=== PATIENT | female | born 1940 | race Caucasian/White ===

== ENCOUNTER 2019-04-19 11:04 | Outpatient (CLI) | payer MEDICARE, SELFPAY ==
[2019-04-19 13:02] LABS: Anion Gap 14.6 mmol/L (7-16); Blood Urea Nitrogen 28 mg/dL (7-18); Calcium 8.5 mg/dL (8.5-10.1); Carbon Dioxide 27 mmol/L (21-32); Chloride 103 mmol/L (98-108); Estimated Glomerular Filt Rate > 60; Glucose 86 mg/dL (70-99); Osmolality Calculated 296 mOsm/kg (285-295); Potassium 3.6 mmol/L (3.5-5.1); Sodium 141 mmol/L (136-145)
== END 2019-04-19 11:05 | disposition home or self-care (01) ==
PROVIDERS: PCP Nurse Practitioner Family
DX: Z95.2 Presence of prosthetic heart valve (principal)
CPT/HCPCS: 36415; 80048

== ENCOUNTER 2019-07-12 10:18 | Outpatient (CLI) | payer MEDICARE, SELFPAY ==
[2019-07-12 10:40] LABS: Basophils Absolute Auto 0.02 K/mm3 (0.00-0.10); Basophils Percent Auto 0.3 % (0.0-1.0); Eosinophils Absolute Auto 0.04 K/mm3 (0.02-0.50); Eosinophils Percent Auto 0.6 % (1.0-6.0); Hematocrit 37.5 % (35.0-42.0); Hemoglobin 12.3 g/dL (11.7-13.8); Immature Granulocyte Absolute 0.03 K/mm3 (0.00-0.00); Immature Granulocyte Percent A 0.5 % (0.0-0.0); Immature Platelet Fraction Pct 2.4 % (1.0-7.0); Lymphocytes Absolute Auto 0.64 K/mm3 (1.10-4.50); Lymphocytes Percent Auto 9.9 % (18.0-42.0); Mean Corpuscular HGB Conc 32.8 g/dL (32.0-36.0); Mean Corpuscular Hemoglobin 29.9 pg (27.0-31.0); Mean Platelet Volume 10.1 fl (9.2-11.8); Monocytes Absolute Auto 0.58 K/mm3 (0.10-0.90); Neutrophils Absolute Auto 5.2 K/mm3 (1.7-7.2); Neutrophils Percent Auto 79.7 % (50.0-70.0); Platelet Count Result 149 K/mm3 (150-420); Red Blood Count 4.12 M/mm3 (4.20-5.40); Red Cell Distribution Width 15.2 % (11.6-14.4); White Blood Count 6.5 K/mm3 (4.8-10.8)
[2019-07-12 13:09] LABS: Alanine Aminotransferase 20 U/L (14-59); Albumin Level 3.7 g/dL (3.4-5.0); Alkaline Phosphatase 100 U/L (46-116); Aspartate Amino Transferase 21 U/L (15-37); Bilirubin,Total 0.9 mg/dL (0.00-1.00); Blood Urea Nitrogen 24 mg/dL (7-18); Calcium 8.9 mg/dL (8.5-10.1); Carbon Dioxide 26 mmol/L (21-32); Chloride 101 mmol/L (98-108); Cholesterol 130 mg/dL (0-200); Estimated Glomerular Filt Rate > 60; Free T4 Free Thyroxine 1.09 ng/dL (0.76-1.46); Glucose 115 mg/dL (70-99); HDL Direct 34 mg/dL (40-60); LDL Cholesterol Calculated 84 mg/dL (<130); Magnesium 1.8 mg/dL (1.8-2.4); Osmolality Calculated 295 mOsm/kg (285-295); Sodium 140 mmol/L (136-145); Total Protein 7.1 g/dL (6.4-8.2); Triglycerides 60 mg/dL (0-150); Vitamin B12 388 pg/mL (193-986)
== END 2019-07-12 10:19 | disposition home or self-care (01) ==
PROVIDERS: PCP Nurse Practitioner Family; Visit Provider Family Medicine
DX: E78.2 Mixed hyperlipidemia (principal); I10 Essential (primary) hypertension; R53.83 Other fatigue; E87.6 Hypokalemia
CPT/HCPCS: 36415; 80053; 80061; 82607; 83735; 84439; 84443; 85025; 85055

== ENCOUNTER 2019-09-25 10:02 | Outpatient (CLI) | payer MEDICARE, SELFPAY ==
[2019-09-25 10:14] LABS: Basophils Absolute Auto 0.02 K/mm3 (0.00-0.10); Basophils Percent Auto 0.2 % (0.0-1.0); Eosinophils Absolute Auto 0.06 K/mm3 (0.02-0.50); Eosinophils Percent Auto 0.7 % (1.0-6.0); Hematocrit 37.8 % (35.0-42.0); Hemoglobin 12.5 g/dL (11.7-13.8); Immature Granulocyte Absolute 0.03 K/mm3 (0.00-0.00); Immature Granulocyte Percent A 0.4 % (0.0-0.0); Lymphocytes Absolute Auto 0.85 K/mm3 (1.10-4.50); Mean Corpuscular HGB Conc 33.1 g/dL (32.0-36.0); Mean Corpuscular Hemoglobin 30.7 pg (27.0-31.0); Mean Corpuscular Volume 92.9 fL (78.0-102.0); Monocytes Absolute Auto 0.75 K/mm3 (0.10-0.90); Monocytes Percent Auto 8.8 % (2.0-11.0); Neutrophils Absolute Auto 6.8 K/mm3 (1.7-7.2); Neutrophils Percent Auto 79.9 % (50.0-70.0); Platelet Count Result 163 K/mm3 (150-420); Red Blood Count 4.07 M/mm3 (4.20-5.40); Red Cell Distribution Width 14.8 % (11.6-14.4); White Blood Count 8.5 K/mm3 (4.8-10.8)
[2019-09-25 11:00] LABS: Alanine Aminotransferase 18 U/L (14-59); Albumin Level 3.6 g/dL (3.4-5.0); Alkaline Phosphatase 103 U/L (46-116); Anion Gap 9 mmol/L (8-16); Aspartate Amino Transferase 18 U/L (15-37); Bilirubin,Total 1.2 mg/dL (0.00-1.00); Blood Urea Nitrogen 20 mg/dL (7-18); Calcium 8.6 mg/dL (8.5-10.1); Carbon Dioxide 28 mmol/L (21-32); Chloride 100 mmol/L (98-108); Estimated Glomerular Filt Rate > 60; Glucose 135 mg/dL (70-99); Osmolality Calculated 288 mOsm/kg (285-295); Potassium 4.1 mmol/L (3.5-5.1); Sodium 137 mmol/L (136-145); Total Protein 7.2 g/dL (6.4-8.2)
[2019-09-28 06:52] LABS: Carcinoembryonic Antigen 2.5 ng/mL (0.0-2.4)
== END 2019-09-25 10:03 | disposition home or self-care (01) ==
LOC: CHSLAB 10:04
PROVIDERS: PCP Nurse Practitioner Family; Visit Provider Internal Medicine Hematology & Oncology
DX: C20 Malignant neoplasm of rectum (principal)
CPT/HCPCS: 36415; 80053; 82378; 85025

== ENCOUNTER 2019-11-30 11:48 | Emergency (ER) | payer MEDICARE, SELFPAY ==
--- NOTE | ~2019-11-30 | CT_ITS ---
EXAMINATION: CT brain wo con DATE: 11/30/2019 12:41 INDICATION: Head injury. TECHNIQUE: Computed tomography (CT) of the head was performed without intravenous contrast. The mA wa s adjusted according to patient size. Iterative reconstruction technique was employed. The dose-lengt h product was 605.33 mGy-cm. COMPARISON: None FINDINGS: There are scattered areas of low attenuation in the cerebral white matter. There is no intr acranial hemorrhage, acute infarction, or abnormal intracranial mass lesion. The ventricles are tila l in size. There are likely changes of left ocular lens replacement surgery. There is mucosal thicken ing in sphenoid sinus. The mastoid air cells are normal. There is an acute hematoma in the left poste rior superior scalp. There are multiple poorly calcified masses in the scalp, likely benign. IMPRESSION: 1. Moderate nonspecific cerebral white matter disease, which likely represents chronic small vessel i schemic disease. Reviewed, dictated and finalized at location A. IMPRESSION: 1. Moderate nonspecific cerebral white matter disease, which likely represents chronic small vessel ischemic disease.
--- NOTE | 2019-11-30 11:52 | ED.HEATRA ---
HPI - Head Injury General Chief complaint: Fall Stated complaint: Ambulance Time Seen by Provider: 11/30/19 11:54 Related Data Home Medications Medication Instructions Recorded Confirmed alprazolam 0.5 mg PO HS 11/30/19 11/30/19 aspirin [Adult Low Dose Aspirin] 81 mg PO DAILY 11/30/19 11/30/19 furosemide 40 mg PO DAILY 11/30/19 11/30/19 losartan 12.5 mg PO DAILY 11/30/19 11/30/19 metoprolol succinate 50 mg PO BID 11/30/19 11/30/19 potassium chloride 10 meq PO BID 11/30/19 11/30/19 rivaroxaban [Xarelto] 20 mg PO HS 11/30/19 11/30/19 sertraline 50 mg PO DAILY 11/30/19 11/30/19 simvastatin 40 mg PO HS 11/30/19 11/30/19 Allergies Allergy/AdvReac Type Severity Reaction Status Date / Time Vitamin K Allergy Intermediate Unknown Uncoded 11/30/19 12:28 [facility] Past Medical History Medical History Anxiety Arthritis Atrial fibrillation Carotid artery stenosis Colon cancer GERD (gastroesophageal reflux disease) HTN (hypertension) Hyperlipidemia Rectal cancer Surgical History Surgical History (Updated 11/30/19 @ 12:02 by Rah Machado MD) H/O resection of rectum History of cataract surgery History of partial colectomy S/P carotid endarterectomy Social History Social History Smoking status: Former smoker Alcohol intake: current Drinks per week: 2 Substance use: never Living arrangements: alone Gender identity (if verbalized by the patient): Male Exam Const: General: no acute distress and alert Nutritional Appearance: obese Orientation/consciousness: patient oriented x3 Limitations: no limitations HENMT: Head: normal to inspection Ears: external ears normal, TM's normal bilaterally and EAC's normal General nose exam: Normal nares present Face and sinus: normal facial exam Mouth: Yes moist mucous membranes Throat: posterior oropharynx normal Other: 4 x 6 cm hematoma on the occiput /crown more left than right. Minimally tender. There is no crepitus in the skin overlying the hematoma is intact. No bony tenderness or step-off/depression is detected with palpation. Eyes: Conjunctivae: conjunctivae normal Pupils: Equal, round and reactive pupils present EOM: EOMs intact bilaterally Neck: Neck: normal visual inspection and no lymphadenopathy Other: No tenderness. Normal range of motion. Resp: Effort & Inspection: normal respiratory effort, not labored and no retractions Auscultation: clear to auscultation bilaterally, no rales, no rhonchi and no wheezes Cardio: Rate: regular rate Rhythm: abnormal rhythm irregularly irregular Heart sounds: no murmurs GI: GI Palp: Yes Soft to palpation and No Tenderness to palpation present (GI) Skin: General skin exam: normal color, no jaundice and no pallor Rashes: no rashes Neuro: General: patient oriented x3, moves all extremities and no focal motor deficits Cranial nerves: Yes CN's II-XII intact bilaterally Speech: normal speech Gait exam (Neuro): Normal gait present Extrem: General: normal to inspection and no clubbing, cyanosis or edema Psych: Appearance: grossly normal and well kempt Mental Status: mental status grossly normal Affect: Anxious affect present Attitude: cooperative Thought content: Yes Normal thought content present Discharge Plan Discharge Clinical Impression: Closed head injury without loss of consciousness Qualifiers: Encounter type: initial encounter Qualified Code(s): S09.90XA - Unspecified injury of head, initial encounter Hematoma of scalp Qualifiers: Encounter type: initial encounter Qualified Code(s): S00.03XA - Contusion of scalp, initial encounter Patient Disposition: Home, Self-Care Condition: Stable Instructions: Head Injury (ED), Hematoma (ED) Additional Instructions: Use your cane or walker to help get around. If you have severe headache, vomiting, stroke-like symptoms, or new
[2019-11-30 12:09] VITALS: BP 146/76; PULSE 90; RESP 20; TEMP 36.9; O2SAT 95
[2019-11-30 13:42] VITALS: BP 140/79; PULSE 87; RESP 20; O2SAT 99
== END 2019-11-30 13:59 | disposition home or self-care (01) ==
PROVIDERS: Emergency Provider Emergency Medicine; PCP Nurse Practitioner Family
DX: S09.90XA Unspecified injury of head, initial encounter (principal); W19.XXXA Unspecified fall, initial encounter
CPT/HCPCS: 70450; 99282; 99284

== ENCOUNTER 2020-01-16 11:24 | Outpatient (CLI) | payer MEDICARE, SELFPAY ==
[2020-01-16 14:05] LABS: Alanine Aminotransferase 18 U/L (14-59); Alkaline Phosphatase 104 U/L (46-116); Anion Gap 11 mmol/L (8-16); Aspartate Amino Transferase 14 U/L (15-37); Bilirubin,Total 1.1 mg/dL (0.00-1.00); Blood Urea Nitrogen 23 mg/dL (7-18); Calcium 8.9 mg/dL (8.5-10.1); Carbon Dioxide 28 mmol/L (21-32); Chloride 102 mmol/L (98-108); Cholesterol 132 mg/dL (0-200); Estimated Glomerular Filt Rate > 60; Glucose 121 mg/dL (70-99); HDL Direct 34 mg/dL (40-60); LDL Cholesterol Calculated 82 mg/dL (<130); Osmolality Calculated 296 mOsm/kg (285-295); Potassium 4.2 mmol/L (3.5-5.1); Sodium 141 mmol/L (136-145); Total Protein 7.5 g/dL (6.4-8.2); Triglycerides 80 mg/dL (0-150); Vitamin B12 495 pg/mL (193-986)
[2020-01-19 11:28] LABS: Vitamin D 25 Hydroxy 11 ng/mL (30-100)
== END 2020-01-16 11:25 | disposition home or self-care (01) ==
PROVIDERS: PCP Nurse Practitioner Family; Visit Provider Family Medicine
DX: E78.5 Hyperlipidemia, unspecified (principal); I10 Essential (primary) hypertension; F32.0 Major depressive disorder, single episode, mild; E87.6 Hypokalemia; Z79.899 Other long term (current) drug therapy; I48.21 Permanent atrial fibrillation
CPT/HCPCS: 36415; 80053; 80061; 82306; 82607

== ENCOUNTER 2020-03-22 07:59 | Emergency (ER) | payer MEDICARE, SELFPAY ==
[2020-03-22 08:22] VITALS: BP 125/81; PULSE 85; RESP 18; TEMP 36.3; O2SAT 95
--- NOTE | 2020-03-22 08:53 | ED.GIBLEED ---
HPI - GI Bleed General Chief complaint: GI Bleed Stated complaint: BLEEDING COLOSCOPY BAG Time Seen by Provider: 03/22/20 08:30 Source: patient Mode of arrival: ambulatory Limitations: no limitations History of Present Illness HPI Narrative: This nice lady has a colostomy in the lower left abdomen. She says she had about 11 inches of colon removed due to colon cancer. Today she notice some minimal dark old blood coming from the stoma. This alarmed her so she came in. The stoma now has some very minimal old blood coming from it. She noticed the bleeding just before presentation to the ER. She reports a history of diverticulosis and lower GI bleeding. She reports taking Xarelto for an aortic valve replacement. Severity: mild Relieving factors: none Exacerbating factors: none Context: history of GI bleed Associated symptoms: denies other symptoms Treatments Prior to Arrival: none Related Data Home Medications Medication Instructions Recorded Confirmed alprazolam 0.5 mg PO HS 11/30/19 03/22/20 aspirin [Adult Low Dose Aspirin] 81 mg PO DAILY 11/30/19 03/22/20 furosemide 40 mg PO DAILY 11/30/19 03/22/20 losartan 12.5 mg PO DAILY 11/30/19 03/22/20 metoprolol succinate 50 mg PO BID 11/30/19 03/22/20 potassium chloride 20 meq PO BID 11/30/19 03/22/20 rivaroxaban [Xarelto] 20 mg PO HS 11/30/19 03/22/20 sertraline 50 mg PO DAILY 11/30/19 03/22/20 simvastatin 40 mg PO HS 11/30/19 03/22/20 spironolactone 25 mg PO DAILY 03/22/20 03/22/20 Allergies Allergy/AdvReac Type Severity Reaction Status Date / Time Vitamin K Allergy Intermediate Unknown Uncoded 11/30/19 12:28 Review of Systems Constitutional: Constitutional: Reports no additional constitutional complaints Eyes: Eyes: Reports no additional eye complaints ENT: Reports system reviewed and no additional complaints, except as documented Cardiovascular: Cardiovascular: Reports no additional cardiovascular complaints Respiratory: Respiratory: Reports no additional respiratory complaints Genitourinary: Genitourinary: Reports no additional female genitourinary complaints Musculoskeletal: Musculoskeletal: Reports no additional musculoskeletal complaints Integumentary/Breasts: Skin/Breast: Reports system reviewed and no additional complaints, except as docu Neurologic: Reports system reviewed and no additional complaints, except as documented Psychiatric: Psychiatric: Reports no additional psychiatric complaints Endocrine: Endocrine: Reports no additional endocrine complaints Hematologic/Lymphatic: Hematologic/Lymphatic: Reports no additional hematologic/lymphatic complaints Allergic/Immunologic: Allergic/Immunologic: Reports no additional allergic/immunologic complaints [facility] Past Medical History Medical History Anxiety Arthritis Atrial fibrillation Carotid artery stenosis Colon cancer GERD (gastroesophageal reflux disease) HTN (hypertension) Hyperlipidemia Rectal cancer Surgical History Surgical History H/O resection of rectum History of cataract surgery History of partial colectomy S/P carotid endarterectomy Family History Family History Mother Family history non-contributory Social History Social History Smoking status: Former smoker Alcohol intake: current Drinks per week: 2 Substance use: never Gender identity (if verbalized by the patient): Male Exam Const: General: healthy appearing, no acute distress and alert Orientation/consciousness: patient oriented x3 HENMT: Head: normal to inspection Ears: external ears normal and TM's normal bilaterally Face and sinus: normal facial exam Mouth: Yes Abnormal oral and palatal mucosa present Throat: posterior oropharynx normal (posterior pharynx with mimimal erythema) Eyes: Conjun
[2020-03-22 09:06] LABS: Basophils Absolute Auto 0.02 K/mm3 (0.00-0.10); Basophils Percent Auto 0.3 % (0.0-1.0); Eosinophils Absolute Auto 0.05 K/mm3 (0.02-0.50); Eosinophils Percent Auto 0.7 % (1.0-6.0); Hematocrit 37.6 % (35.0-42.0); Hemoglobin 12.3 g/dL (11.7-13.8); Immature Granulocyte Absolute 0.03 K/mm3 (0.00-0.00); Immature Granulocyte Percent A 0.4 % (0.0-0.0); Immature Platelet Fraction Pct 2.6 % (1.0-7.0); Lymphocytes Absolute Auto 0.53 K/mm3 (1.10-4.50); Lymphocytes Percent Auto 7.1 % (18.0-42.0); Mean Corpuscular HGB Conc 32.7 g/dL (32.0-36.0); Mean Corpuscular Volume 91.7 fL (78.0-102.0); Mean Platelet Volume 10.3 fl (9.2-11.8); Monocytes Absolute Auto 0.61 K/mm3 (0.10-0.90); Monocytes Percent Auto 8.2 % (2.0-11.0); Neutrophils Absolute Auto 6.2 K/mm3 (1.7-7.2); Neutrophils Percent Auto 83.3 % (50.0-70.0); Platelet Count Result 142 K/mm3 (150-420); Red Cell Distribution Width 14.9 % (11.6-14.4); White Blood Count 7.4 K/mm3 (4.8-10.8)
[2020-03-22 09:19] LABS: INR 1.5; Partial Thromboplastin Time 34.5 SEC (23.90-30.70); Prothrombin Time 15.9 Seconds (9.50-12.10)
[2020-03-22 09:21] LABS: Alanine Aminotransferase 15 U/L (14-59); Albumin Level 3.3 g/dL (3.4-5.0); Alkaline Phosphatase 89 U/L (46-116); Anion Gap 7 mmol/L (8-16); Aspartate Amino Transferase 12 U/L (15-37); Bilirubin,Total 1.1 mg/dL (0.00-1.00); Blood Urea Nitrogen 24 mg/dL (7-18); Calcium 8.9 mg/dL (8.5-10.1); Carbon Dioxide 30 mmol/L (21-32); Chloride 103 mmol/L (98-108); Estimated CRCL calculation 62 ml/min; Estimated Glomerular Filt Rate > 60; Glucose 122 mg/dL (70-99); Osmolality Calculated 295 mOsm/kg (285-295); Potassium 3.7 mmol/L (3.5-5.1); Sodium 140 mmol/L (136-145); Total Protein 7.2 g/dL (6.4-8.2)
--- NOTE | 2020-03-22 09:37 | PC.NURSE ---
Pt resting comfortably on stretcher, no change in status.
[2020-03-22 10:35] VITALS: BP 124/87; PULSE 70; RESP 18; O2SAT 95
== END 2020-03-22 10:35 | disposition home or self-care (01) ==
PROVIDERS: Emergency Provider Emergency Medicine; PCP Nurse Practitioner Family
DX: K92.2 Gastrointestinal hemorrhage, unspecified (principal); K92.1 Melena; I48.91 Unspecified atrial fibrillation; Z85.038 Personal history of other malignant neoplasm of large intestine; K21.9 Gastro-esophageal reflux disease without esophagitis; I10 Essential (primary) hypertension; E78.5 Hyperlipidemia, unspecified; Z87.891 Personal history of nicotine dependence
CPT/HCPCS: 36415; 80053; 85025; 85055; 85610; 85730; 99282; 99283

== ENCOUNTER 2020-04-29 09:16 | Outpatient (CLI) | payer MEDICARE, SELFPAY ==
--- NOTE | ~2020-04-29 | XR_ITS ---
EXAMINATION: XR chest 2V DATE: 04/29/2020 09:54 INDICATION: Cough. TECHNIQUE: Frontal and lateral views of the chest were obtained. COMPARISON: Chest 2 views 12/16/2017, chest CT 09/19/2018 FINDINGS: There is a diffuse interstitial pattern in the lungs. There are tiny pleural effusions. No pneumothorax. Cardiomegaly is noted. There are changes of aortic valve replacement. There is a right internal jugular port with tip at superior cavoatrial junction. IMPRESSION: 1. Diffuse interstitial pattern in the lungs, consistent with mild pulmonary edema 2. Tiny pleural effusions. 3. Cardiomegaly. Reviewed, dictated and finalized at location A. IMPRESSION: 1. Diffuse interstitial pattern in the lungs, consistent with mild pulmonary ed francis 2. Tiny pleural effusions. 3. Cardiomegaly.
[2020-04-29 11:01] LABS: Alanine Aminotransferase 21 U/L (14-59); Albumin Level 3.8 g/dL (3.4-5.0); Alkaline Phosphatase 99 U/L (46-116); Anion Gap 11 mmol/L (8-16); Aspartate Amino Transferase 15 U/L (15-37); Bilirubin,Total 1.2 mg/dL (0.00-1.00); Blood Urea Nitrogen 29 mg/dL (7-18); Calcium 8.8 mg/dL (8.5-10.1); Carbon Dioxide 29 mmol/L (21-32); Chloride 100 mmol/L (98-108); Estimated Glomerular Filt Rate 54; Free T4 Free Thyroxine 1.08 ng/dL (0.76-1.46); Glucose 122 mg/dL (70-99); Osmolality Calculated 296 mOsm/kg (285-295); Potassium 4.2 mmol/L (3.5-5.1); Sodium 140 mmol/L (136-145); Thyroid Stimulating Hormone 3.16 uIU/mL (0.36-3.74); Total Protein 7.3 g/dL (6.4-8.2); Vitamin B12 554 pg/mL (193-986)
[2020-05-02 06:34] LABS: Thyroid Peroxidase Antibodies <1 IU/mL (<9)
[2020-05-02 11:58] LABS: Vitamin D 25 Hydroxy 88 ng/mL (30-100)
== END 2020-04-29 09:17 | disposition home or self-care (01) ==
LOC: CHSLAB 09:19
PROVIDERS: PCP Family Medicine; Visit Provider Family Medicine
DX: R53.83 Other fatigue (principal); I10 Essential (primary) hypertension; F32.0 Major depressive disorder, single episode, mild; E78.5 Hyperlipidemia, unspecified; E87.6 Hypokalemia; Z79.899 Other long term (current) drug therapy; R05 Cough
CPT/HCPCS: 36415; 71046; 80053; 82306; 82607; 84439; 84443; 86376

== ENCOUNTER 2020-05-13 09:57 | Outpatient (RCR) | payer MEDICARE, SELFPAY ==
--- NOTE | 2020-05-13 11:27 | PTOPEVAL ---
Thank you for referring Salima Galaviz to [facility] [place].? The patient is scheduled to be seen for therapy? ____x/week for ___ weeks. Please review, sign, date and return this plan of care SHAYE. I agree with and certify that the following plan of care is medically necessary. Referring Physician Date Admitting Provider: Attending Provider: Jefry Valverde, BUSINESS PERFORMANCE MANAGER Referring Provider: *PT Outpatient Evaluation Start: 05/13/20 09:56 Freq: Status: Active Protocol: Document 05/13/20 09:57 ACR (Rec: 05/13/20 11:27 ACR [id number]) Therapy Assessment Status Assessment Status Assessment Status Evaluation Outpatient Past Medical History Cardiovascular History Hx Atrial Fibrillation Yes Hx Coronary Stent Yes Hx Hypercholesterolemia Yes Hx Hypertension Yes Gastrointestinal History Hx Other Gastrointestinal Disorders Yes: colostomy, colon cancer Reproductive History Hx Post Menopausal Yes Other History Hx Cancer Yes: colon Hx Other Surgeries Yes: colostomy Evaluation Information Problem Diagnosis B knee pain, unsteady gait, balance Subjective Information Patient states she is unsure Query Text:As Reported By Patient/ about why she is at therapy, Family but she believes her MD wants her to come for her balance and her endurance. Patient states she has fallen once in the past year, she states she did not have her cane. She states she has difficulty with turns and walking backwards. Patient states she can walk about 10 minutes without requiring a break, but that is about it. She states she is able to pick something up as long as she is holding onto her cane. She states she is afraid of the shower, but is able to get in and out of it. She states she is unable to stand for long periods of time . Patient states getting up and down off of the toilet or out of a chair are the worst for her. 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
--- NOTE | 2020-05-15 13:23 | PCPTNOTE ---
patient called and cancelled appt for today. CAT
--- NOTE | 2020-06-13 16:01 | PTOPEVAL ---
Thank you for referring Salima Galaviz to [facility].? The patient is scheduled to be seen for therapy? ____x/week for ___ weeks. Please review, sign, date and return this plan of care SHAYE. I agree with and certify that the following plan of care is medically necessary. Referring Physician Date Admitting Provider: Attending Provider: Jefry Valverde, ROLL FILLER Referring Provider: *PT Outpatient Evaluation Start: 05/13/20 09:56 Freq: Status: Active Protocol: Document 06/13/20 15:08 ACR (Rec: 06/13/20 15:57 ACR [id number]) Therapy Assessment Status Assessment Status Assessment Status Progress Outpatient Past Medical History Cardiovascular History Hx Atrial Fibrillation Yes Hx Coronary Stent Yes Hx Hypercholesterolemia Yes Hx Hypertension Yes Gastrointestinal History Hx Other Gastrointestinal Disorders Yes: colostomy, colon cancer Reproductive History Hx Post Menopausal Yes Other History Hx Cancer Yes: colon Hx Other Surgeries Yes: colostomy Evaluation Information Problem Diagnosis B knee pain, unsteady gait, balance Onset 05/06/20 Subjective Information Patient reports since Query Text:As Reported By Patient/ beginning therapy she feels Family that she is more active. She states she still has the pain and thinks that is not going to go away. Patient states that she is losing her balance more now than before, especially backward and to the side. She states that she is getting up and down a lot more now than before starting therapy. Pain Assessment Timing of Pain Assessment Timing of Pain Assessment Pre-Treatment Pain Scale Pain Scale Used Numeric (1 - 10) Self Report Pain Assessment Bilateral Knee(s) Reported Pain Level 9 Pain Score Pain Score 9: Self Report Interventions Used Interventions Used By Clinicians Activity or ADL's,Education, Exercise,Heat Lower Extremity Muscle Strength Testing Hip Strength Bilateral Hip Flexion Strength 4 Good Hip Abduction Strength 4+ Good + Hip Adduction Strength 4+ Good + Knee Strength Bilateral Knee Flexion Strength 4 Good Knee Extension Strength 4 Good Ankle Strength Bilateral Ankle Dorsiflexion Strength 4+ Good + Ankle Plantarflexion Strength 4+ Good + Balance Assessment Tinetti Balance A
== END 2020-06-19 17:00 | disposition still patient (30) ==
LOC: CHSPT 09:57
PROVIDERS: PCP Family Medicine; Visit Provider Nurse Practitioner Family
DX: R53.1 Weakness (principal); R26.81 Unsteadiness on feet; M25.562 Pain in left knee; M25.561 Pain in right knee; I51.7 Cardiomegaly
CPT/HCPCS: 97110; 97161; 97530

== ENCOUNTER 2020-06-03 13:39 | Outpatient (CLI) | payer MEDICARE, SELFPAY ==
--- NOTE | ~2020-06-03 | XR_ITS ---
EXAMINATION: XR chest 2V DATE: 06/03/2020 14:08 INDICATION: Chest congestion. Shortness of breath. TECHNIQUE: Frontal and lateral views of the chest were obtained. COMPARISON: Chest 2 views 04/29/2020, chest CT 09/19/2018 FINDINGS: There is a diffuse interstitial pattern in the lungs, consistent with mild pulmonary edema. No pleural effusion or pneumothorax. Cardiomegaly is noted. There are changes of aortic valve replac ement. There is a right internal jugular port with tip at superior cavoatrial junction. IMPRESSION: 1. Mild pulmonary edema. 2. Cardiomegaly. Reviewed, dictated and finalized at location B.
== END 2020-06-03 13:40 | disposition home or self-care (01) ==
LOC: CHSIMG 13:42
PROVIDERS: PCP Nurse Practitioner Family; Visit Provider Family Medicine
DX: R09.89 Other specified symptoms and signs involving the circulatory and respiratory systems (principal)
CPT/HCPCS: 71046

== ENCOUNTER 2020-08-06 10:09 | Outpatient (CLI) | payer MEDICARE, SELFPAY ==
[2020-08-06 10:36] LABS: Hemoglobin A1C 6.5 % (<5.7)
[2020-08-06 13:51] LABS: Alanine Aminotransferase 24 U/L (14-59); Albumin Level 3.9 g/dL (3.4-5.0); Alkaline Phosphatase 103 U/L (46-116); Anion Gap 15 mmol/L (8-16); Aspartate Amino Transferase 18 U/L (15-37); Bilirubin,Total 1.1 mg/dL (0.00-1.00); Blood Urea Nitrogen 24 mg/dL (7-18); Calcium 9.2 mg/dL (8.5-10.1); Carbon Dioxide 24 mmol/L (21-32); Chloride 101 mmol/L (98-108); Cholesterol 130 mg/dL (0-200); Estimated Glomerular Filt Rate > 60; Glucose 129 mg/dL (70-99); HDL Direct 35 mg/dL (40-60); LDL Cholesterol Calculated 83 mg/dL (<130); Magnesium 2.1 mg/dL (1.8-2.4); Osmolality Calculated 296 mOsm/kg (285-295); Potassium 4.7 mmol/L (3.5-5.1); Sodium 140 mmol/L (136-145); Total Protein 7.3 g/dL (6.4-8.2); Triglycerides 58 mg/dL (0-150); Vitamin B12 497 pg/mL (193-986)
[2020-08-10 12:55] LABS: Vitamin D 25 Hydroxy 74 ng/mL (30-100)
== END 2020-08-06 10:10 | disposition home or self-care (01) ==
LOC: CHSLAB 10:12
PROVIDERS: PCP Nurse Practitioner Family; Visit Provider Family Medicine
DX: E78.2 Mixed hyperlipidemia (principal); I10 Essential (primary) hypertension; E87.6 Hypokalemia; R53.83 Other fatigue; F41.8 Other specified anxiety disorders; Z79.899 Other long term (current) drug therapy; R73.09 Other abnormal glucose
CPT/HCPCS: 36415; 80053; 80061; 82306; 82607; 83036; 83735

== ENCOUNTER 2020-08-12 12:25 | Outpatient (CLI) | payer MEDICARE, SELFPAY ==
--- NOTE | ~2020-08-12 | US_ITS ---
EXAMINATION: US pelvic complete w TV DATE: 08/12/2020 13:08 INDICATION: Postmenopausal bleeding TECHNIQUE: Multiple transabdominal and endovaginal sonographic images of the pelvis were obtained. COMPARISON: CT, 09/19/2018 FINDINGS: The uterus measures 9.6 x 4.2 x 4.9 cm. There is a large calcified fibroid in the lower [place] r[place] segment which somewhat obscures visualization of the endometrium. The endometrial complex appear s to measure approximately 10 mm. The ovaries are not visualized however no adnexal abnormality is se en. There is no free fluid in the pelvis. IMPRESSION: 1. Possible endometrial thickening however visualization is difficult due to shadowing from a calcifi ed fibroid in the lower uterine segment. Reviewed, dictated and finalized at location B. IMPRESSION: 1. Possible endometrial thickening however visualization is difficult due to sh adowing from a calcified fibroid in the lower uterine segment.
== END 2020-08-12 12:26 | disposition home or self-care (01) ==
LOC: CHSIMG 12:28
PROVIDERS: PCP Nurse Practitioner Family; Visit Provider Student in an Organized Health Care Education/Training Program
DX: N95.0 Postmenopausal bleeding (principal)
CPT/HCPCS: 76830; 76856

== ENCOUNTER 2020-08-13 13:56 | Outpatient (RCR) | payer MEDICARE, SELFPAY ==
--- NOTE | 2020-08-13 15:09 | PTOPEVAL ---
Thank you for referring Salima Galaviz to [facility].? The patient is scheduled to be seen for therapy? ____x/week for ___ weeks. Please review, sign, date and return this plan of care SHAYE. I agree with and certify that the following plan of care is medically necessary. Referring Physician Date Admitting Provider: Attending Provider: Jefry Valverde, SUPERVISOR CLAIMS Referring Provider: *PT Outpatient Evaluation Start: 08/13/20 13:50 Freq: Status: Active Protocol: Document 08/13/20 13:50 ACR (Rec: 08/13/20 15:08 ACR [id number]) Therapy Assessment Status Assessment Status Assessment Status Re-evaluation Outpatient Past Medical History Cardiovascular History Hx Atrial Fibrillation Yes Hx Coronary Stent Yes Hx Hypercholesterolemia Yes Hx Hypertension Yes Gastrointestinal History Hx Other Gastrointestinal Disorders Yes: colostomy, colon cancer Reproductive History Hx Post Menopausal Yes Other History Hx Cancer Yes: colon Hx Other Surgeries Yes: colostomy Evaluation Information Problem Diagnosis balance, unsteady gait Onset 05/06/20 Subjective Information Patient states that she was Query Text:As Reported By Patient/ doing okay and went on Family vacation. She came back and got cortisone shots in her knees and they worked for 2 weeks and the pain is worse. Patient states that walking down steps, walking, standing, getting in and out of the car are all very difficult for her. She states her goal is to be able to do steps and walk better. Prior Level of Function Activity Level (Last 3 Months) Occupation retired Hand Dominance Right Activity of Daily Living Ability Independent Indoor/Home Mobility Independent Community Mobility Independent Stairs Ability Independent Functional Cognition (Planning, Shopping Independent , Taking Medications) Cooking Yes Cleaning Yes Laundry Yes Shopping Yes Driving Yes Pain Assessment Timing of Pain Assessment Timing of Pain Assessment Assessment Pain Scale Pain Scale Used Numeric (1 - 10) Self Report Pain Assessment Bilateral Knee(s) Reported Pain Level 0 Lowest Pain Intensity 0 Greatest Pain Intensity 8
--- NOTE | 2020-09-19 15:59 | PTOPEVAL ---
Thank you for referring Salima Galaviz to [facility] [place].? The patient is scheduled to be seen for therapy? ____x/week for ___ weeks. Please review, sign, date and return this plan of care SHAYE. I agree with and certify that the following plan of care is medically necessary. Referring Physician Date Admitting Provider: Attending Provider: Jefry Valverde, IRRIGATOR GRAVITY FLOW Referring Provider: *PT Outpatient Evaluation Start: 08/13/20 13:50 Freq: Status: Active Protocol: Document 09/19/20 15:08 ACR (Rec: 09/19/20 15:58 ACR [id number]) Therapy Assessment Status Assessment Status Assessment Status Discharge Outpatient Past Medical History Cardiovascular History Hx Atrial Fibrillation Yes Hx Coronary Stent Yes Hx Hypercholesterolemia Yes Hx Hypertension Yes Gastrointestinal History Hx Other Gastrointestinal Disorders Yes: colostomy, colon cancer Reproductive History Hx Post Menopausal Yes Other History Hx Cancer Yes: colon Hx Other Surgeries Yes: colostomy Evaluation Information Problem Diagnosis balance, unsteady gait Onset 05/06/20 Subjective Information Patient states that she still Query Text:As Reported By Patient/ has pain in her knees, but she Family feels her movement is better. She states she feels stronger , but will always have difficulty with something. Patient states that navigating steps has gotten easier and so has walking. Getting in and out of the car is a little easier as well. Pain Assessment Timing of Pain Assessment Timing of Pain Assessment Assessment Pain Scale Pain Scale Used Numeric (1 - 10) Self Report Pain Assessment Bilateral Knee(s) Reported Pain Level 7 Lowest Pain Intensity 7 Greatest Pain Intensity 7 Pain Score Pain Score 7: Self Report Interventions Used Interventions Used By Clinicians Activity or ADL's,Exercise Lower Extremity Muscle Strength Testing General Lower Extremity Strength Gross Lower Extremity Strength B hip flexion: 4+/5 R knee ext: 4/5 L knee ext: 4+/5 B knee flexion: 5/5 Balance Assessment Tinetti Balance Assessment Sitting Balance Steady, safe Ability to Arise Able, uses arms to help Attempts to Arise Arises on 1st attempt Immediate Standing Balance Steady with support Standing Balance Steady, wide stance Nudged Res
== END 2020-09-19 17:47 | disposition home or self-care (01) ==
LOC: CHSPT 13:56
PROVIDERS: PCP Family Medicine; Visit Provider Nurse Practitioner Family
DX: R53.1 Weakness (principal); R26.81 Unsteadiness on feet; M25.562 Pain in left knee; M25.561 Pain in right knee; I51.7 Cardiomegaly
CPT/HCPCS: 97110; 97164; 97530

== ENCOUNTER 2020-09-23 14:12 | Outpatient (CLI) | payer MEDICARE, SELFPAY ==
[2020-09-23 15:49] LABS: Basophils Absolute Auto 0.03 K/mm3 (0.00-0.10); Basophils Percent Auto 0.4 % (0.0-1.0); Eosinophils Absolute Auto 0.05 K/mm3 (0.02-0.50); Eosinophils Percent Auto 0.6 % (1.0-6.0); Hematocrit 39.6 % (35.0-42.0); Hemoglobin 12.7 g/dL (11.7-13.8); Immature Granulocyte Absolute 0.03 K/mm3 (0.00-0.00); Immature Granulocyte Percent A 0.4 % (0.0-0.0); Lymphocytes Absolute Auto 0.67 K/mm3 (1.10-4.50); Mean Corpuscular HGB Conc 32.1 g/dL (32.0-36.0); Mean Corpuscular Hemoglobin 30.5 pg (27.0-31.0); Mean Corpuscular Volume 95.2 fL (78.0-102.0); Mean Platelet Volume 11.1 fl (9.2-11.8); Monocytes Absolute Auto 0.72 K/mm3 (0.10-0.90); Monocytes Percent Auto 8.6 % (2.0-11.0); Neutrophils Absolute Auto 6.8 K/mm3 (1.7-7.2); Platelet Count Result 177 K/mm3 (150-420); Red Blood Count 4.16 M/mm3 (4.20-5.40); White Blood Count 8.3 K/mm3 (4.8-10.8)
[2020-09-23 15:53] LABS: Alanine Aminotransferase 22 U/L (14-59); Albumin Level 3.6 g/dL (3.4-5.0); Alkaline Phosphatase 100 U/L (46-116); Anion Gap 10 mmol/L (8-16); Aspartate Amino Transferase 17 U/L (15-37); Bilirubin,Total 0.8 mg/dL (0.00-1.00); Blood Urea Nitrogen 25 mg/dL (7-18); Calcium 8.8 mg/dL (8.5-10.1); Carbon Dioxide 29 mmol/L (21-32); Chloride 105 mmol/L (98-108); Estimated Glomerular Filt Rate 60; Glucose 155 mg/dL (70-99); Osmolality Calculated 305 mOsm/kg (285-295); Potassium 3.8 mmol/L (3.5-5.1); Sodium 144 mmol/L (136-145); Total Protein 7.2 g/dL (6.4-8.2)
== END 2020-09-23 14:13 | disposition home or self-care (01) ==
LOC: CHSLAB 14:15
PROVIDERS: PCP Nurse Practitioner Family; Visit Provider Internal Medicine Hematology & Oncology
DX: C20 Malignant neoplasm of rectum (principal)
CPT/HCPCS: 36415; 80053; 82378; 85025

== ENCOUNTER 2020-10-19 06:54 | Emergency (ER) | payer MEDICARE, SELFPAY ==
[2020-10-19 07:10] VITALS: BP 113/64; PULSE 113; RESP 16; TEMP 37.8; O2SAT 94
[2020-10-19 07:51] LABS: Basophils Absolute Auto 0.03 K/mm3 (0.00-0.10); Basophils Percent Auto 0.2 % (0.0-1.0); Hematocrit 39.3 % (35.0-42.0); Hemoglobin 13.2 g/dL (11.7-13.8); Immature Granulocyte Absolute 0.08 K/mm3 (0.00-0.00); Immature Granulocyte Percent A 0.4 % (0.0-0.0); Lymphocytes Absolute Auto 0.47 K/mm3 (1.10-4.50); Lymphocytes Percent Auto 2.6 % (18.0-42.0); Mean Corpuscular HGB Conc 33.6 g/dL (32.0-36.0); Mean Corpuscular Hemoglobin 30.9 pg (27.0-31.0); Mean Platelet Volume 10.5 fl (9.2-11.8); Monocytes Absolute Auto 1.05 K/mm3 (0.10-0.90); Monocytes Percent Auto 5.9 % (2.0-11.0); Neutrophils Absolute Auto 16.2 K/mm3 (1.7-7.2); Neutrophils Percent Auto 90.9 % (50.0-70.0); Platelet Count Result 176 K/mm3 (150-420); Red Blood Count 4.27 M/mm3 (4.20-5.40); Red Cell Distribution Width 14.8 % (11.6-14.4); White Blood Count 17.8 K/mm3 (4.8-10.8)
--- NOTE | 2020-10-19 08:12 | ED.EXTPRO ---
HPI - Extremity Problem General Chief complaint: Extremity Problem,Nontraumatic Stated complaint: R lower leg pain and swelling Source: patient Mode of arrival: ambulatory History of Present Illness HPI Narrative: This is a 80-year-old female presents with right lower extremity was diagnosed with cellulitis started on Keflex by her primary care physician and presents today with taking 1 dose of her Keflex but having warmth and tenderness to right lower extremity with low-grade fever with no shortness of breath currently there is no swelling in her lower extremities has good range of motion no injuries has a history of chronic venous stasis and was advised to wear compression stockings which she does not. No chest pain no abdominal pain. Complaint: extremity swelling Onset (ago): day(s) Pain Consistency: constant Location: right Severity scale (1-10): 2 Quality: aching Related Data Home Medications Medication Instructions Recorded Confirmed alprazolam 0.5 mg PO HS 11/30/19 10/19/20 aspirin [Adult Low Dose Aspirin] 81 mg PO DAILY 11/30/19 10/19/20 furosemide 40 mg PO DAILY 11/30/19 10/19/20 losartan 12.5 mg PO DAILY 11/30/19 10/19/20 metoprolol succinate 50 mg PO BID 11/30/19 10/19/20 potassium chloride 20 meq PO BID 11/30/19 10/19/20 rivaroxaban [Xarelto] 20 mg PO HS 11/30/19 10/19/20 sertraline 50 mg PO DAILY 11/30/19 10/19/20 simvastatin 40 mg PO HS 11/30/19 10/19/20 cephalexin 500 mg PO BID 10/19/20 10/19/20 Allergies Allergy/AdvReac Type Severity Reaction Status Date / Time phytonadione (vitamin K1) AdvReac Unknown Verified 10/19/20 07:27 Review of Systems Review of Systems: All systems reviewed & are unremarkable except as noted in HPI and below PMFSH Past Medical History Medical History Anxiety Arthritis Atrial fibrillation Carotid artery stenosis Colon cancer Depression GERD (gastroesophageal reflux disease) Hernia History of vaginal delivery x 2 HTN (hypertension) Hyperlipidemia Rectal cancer Surgical History Surgical History H/O resection of rectum History of cataract surgery History of partial colectomy S/P carotid endarterectomy Family History Family History Mother Family history non-contributory Sibling Lung cancer Social History Social History (Updated 08/07/20 @ 14:29 by Jase Pham) Smoking status: Former smoker Alcohol intake: current Drinks per week: 2 Substance use: never Gender identity (if verbalized by the patient): Male Exam Const: General: no acute distress and alert Orientation/consciousness: patient oriented x3 HENMT: Head: normal to inspection Eyes: Conjunctivae: conjunctivae normal Pupils: Equal, round and reactive pupils present Chest: Chest palpation & inspection: normal inspection of the chest Resp: Effort & Inspection: normal respiratory effort Auscultation: clear to auscultation bilaterally GI: GI Palp: Yes Soft to palpation : General: Yes no CVA tenderness Urinary Catheter: Urinary Catheter: patent and draining Back/Spine/Pelvis: Back: no CVA tenderness Neuro: General: patient oriented x3 Extrem: Other: Warm tender red right lower extremity Psych: Mental Status: mental status grossly normal Affect: normal affect Attitude: cooperative Course Course Emergency Course: labs reviewed with patient low-grade fever was given a g of ceftriaxone will change antibiotics to Augmentin with close follow-up recommended with her primary care physician. Vital Signs Vital signs: Vital Signs Temperature 37.8 C H 10/19/20 07:10 Pulse Rate 113 H 10/19/20 07:10 Respiratory Rate 16 10/19/20 07:10 Blood Pressure 113/64 10/19/20 07:10 Pulse Oximetry 94 10/19/20 07:10 Temperature 37.8 C H 10/19/20 07:10 Pulse Rate 113 H 10/19/20 07:10 Respirato
[2020-10-19 08:13] LABS: Alanine Aminotransferase 19 U/L (14-59); Albumin Level 3.7 g/dL (3.4-5.0); Alkaline Phosphatase 96 U/L (46-116); Anion Gap 12 mmol/L (8-16); Aspartate Amino Transferase 14 U/L (15-37); Bilirubin,Total 2.1 mg/dL (0.00-1.00); Blood Urea Nitrogen 24 mg/dL (7-18); Calcium 9.1 mg/dL (8.5-10.1); Carbon Dioxide 26 mmol/L (21-32); Chloride 100 mmol/L (98-108); Estimated Glomerular Filt Rate 52; Glucose 149 mg/dL (70-99); Osmolality Calculated 293 mOsm/kg (285-295); Sodium 138 mmol/L (136-145)
[2020-10-19] MEDS: cefTRIAXone 1 GM VIAL IM (08:16)
[2020-10-19 08:19] LABS: NT Pro B Type Natriuretic Pept 2191 pg/mL (0-450)
[2020-10-19 08:35] VITALS: RESP 21
== END 2020-10-19 08:35 | disposition home or self-care (01) ==
PROVIDERS: Emergency Provider Emergency Medicine; PCP Family Medicine
DX: L03.115 Cellulitis of right lower limb (principal); I48.91 Unspecified atrial fibrillation; Z85.038 Personal history of other malignant neoplasm of large intestine; K21.9 Gastro-esophageal reflux disease without esophagitis; I10 Essential (primary) hypertension; E78.5 Hyperlipidemia, unspecified; Z87.891 Personal history of nicotine dependence
CPT/HCPCS: 36415; 80053; 83880; 85025; 87040; 96372; 99283; J0696

== ENCOUNTER 2021-01-24 14:06 | Outpatient (CLI) | payer MEDICARE, SELFPAY ==
[2021-01-24 14:31] LABS: Basophils Absolute Auto 0.05 K/mm3 (0.00-0.10); Basophils Percent Auto 0.6 % (0.0-1.0); Eosinophils Absolute Auto 0.15 K/mm3 (0.02-0.50); Eosinophils Percent Auto 1.9 % (1.0-6.0); Hematocrit 39.1 % (35.0-42.0); Hemoglobin 12.6 g/dL (11.7-13.8); Immature Granulocyte Absolute 0.02 K/mm3 (0.00-0.00); Immature Granulocyte Percent A 0.3 % (0.0-0.0); Lymphocytes Absolute Auto 0.66 K/mm3 (1.10-4.50); Lymphocytes Percent Auto 8.3 % (18.0-42.0); Mean Corpuscular HGB Conc 32.2 g/dL (32.0-36.0); Mean Corpuscular Volume 93.1 fL (78.0-102.0); Monocytes Absolute Auto 0.76 K/mm3 (0.10-0.90); Monocytes Percent Auto 9.5 % (2.0-11.0); Neutrophils Absolute Auto 6.4 K/mm3 (1.7-7.2); Neutrophils Percent Auto 79.4 % (50.0-70.0); Platelet Count Result 152 K/mm3 (150-420); Red Cell Distribution Width 15.2 % (11.6-14.4)
[2021-01-24 15:22] LABS: Alanine Aminotransferase 16 U/L (14-59); Albumin Level 3.4 g/dL (3.4-5.0); Alkaline Phosphatase 112 U/L (46-116); Anion Gap 11 mmol/L (8-16); Aspartate Amino Transferase 15 U/L (15-37); Blood Urea Nitrogen 17 mg/dL (7-18); Calcium 8.7 mg/dL (8.5-10.1); Carbon Dioxide 29 mmol/L (21-32); Chloride 101 mmol/L (98-108); Estimated Glomerular Filt Rate > 60; Glucose 106 mg/dL (70-99); Osmolality Calculated 293 mOsm/kg (285-295); Potassium 3.8 mmol/L (3.5-5.1); Sodium 141 mmol/L (136-145); Thyroid Stimulating Hormone 2.93 uIU/mL (0.36-3.74); Total Protein 7.1 g/dL (6.4-8.2)
== END 2021-01-24 14:07 | disposition home or self-care (01) ==
PROVIDERS: PCP Nurse Practitioner Family; Visit Provider Nurse Practitioner Family
DX: F41.9 Anxiety disorder, unspecified (principal); F33.0 Major depressive disorder, recurrent, mild; E66.01 Morbid (severe) obesity due to excess calories; Z68.42 Body mass index [BMI] 45.0-49.9, adult
CPT/HCPCS: 36415; 80053; 84443; 85025

== ENCOUNTER 2021-02-13 13:18 | Outpatient (CLI) | payer MEDICARE, SELFPAY ==
[2021-02-13 15:08] LABS: SARS-CoV-2 RNA PCR Positive (Negative)
== END 2021-02-13 13:19 | disposition home or self-care (01) ==
LOC: CHSLAB 13:23
PROVIDERS: PCP Nurse Practitioner Family; Visit Provider Nurse Practitioner Family
DX: U07.1 COVID-19 (principal)
CPT/HCPCS: C9803; U0003; U0005

== ENCOUNTER 2021-07-01 14:24 | Outpatient (CLI) | payer MEDICARE, SELFPAY ==
--- NOTE | ~2021-07-01 | US_ITS ---
EXAMINATION: US pelvic complete DATE: 07/01/2021 14:54 INDICATION: Abnormal ultrasound follow-up. TECHNIQUE: Multiple transabdominal sonographic images of the pelvis were obtained. COMPARISON: 08/12/2020. FINDINGS: Uterus: 8.6 x 5.7 x 5.3 cm. Heterogeneous myometrium including hyperechoic areas that shadow, likely representing calcified fibroids. Endometrial complex measures approximately 0.5 cm., endometrial com plex was poorly visualized Right Ovary: Not visualized, no abnormality detected in the right adnexa. Left Ovary: Not visualized, no abnormality detected in the left adnexa. There is no free fluid in the pelvis. IMPRESSION: 1. Limited examination. 2. Endometrial complex is poorly visualized. 3. Calcified uterine fibroids. Reviewed, dictated and finalized at location K.
== END 2021-07-01 14:25 | disposition home or self-care (01) ==
LOC: CHSIMG 14:28
PROVIDERS: PCP Nurse Practitioner Family; Visit Provider Student in an Organized Health Care Education/Training Program
DX: R93.89 Abnormal findings on diagnostic imaging of other specified body structures (principal)
CPT/HCPCS: 76856

== ENCOUNTER 2022-01-18 00:22 | Observation (INO) | payer MEDICARE, SELFPAY ==
[2022-01-18] VITALS (56 sets, daily range): BP systolic 96–152; BP diastolic 44–96; PULSE 83–120; RESP 9–28; TEMP 36.2–36.6; O2SAT 80–100; BMI 42.0
--- NOTE | ~2022-01-18 | CT_ITS ---
EXAMINATION: CTA chest PE protocol DATE: 01/18/2022 09:04 PARIMUTUEL CASHIER INDICATION: Shortness of breath. Elevated d-dimer. TECHNIQUE: Computed tomographic angiography (CTA) of the chest was performed with 100 mL Omnipaque-35 0 intravenous contrast. The dose-length product was 606.46 mGy-cm. Maximum intensity projection 3D-re constructions of the aorta and other arteries were constructed by the technologist on a separate work station. Automated exposure control and iterative reconstruction technique were employed. COMPARISON: CT dated 09/19/2018. FINDINGS: Moderate cardiomegaly. Study is technically adequate without evidence for pulmonary embolis m. There are changes of aortic valve surgery. Small pleural effusions. Enlarged pulmonary arteries co nsistent with pulmonary hypertension. There is mediastinal lymphadenopathy, likely reactive. There is interlobular septal thickening with areas of more focal consolidation in the lower lobes. There is e mphysema. Right internal jugular port catheter tip in the right atrium. IMPRESSION: 1. Diffuse bilateral interstitial disease lung disease with septal thickening and small pleural effus ions, likely interstitial edema versus chronic interstitial lung disease. 2: No evidence for pulmonary embolism. 3: Moderate cardiomegaly. 4: Mediastinal lymphadenopathy, likely reactive. Reviewed, dictated and finalized at location A. MUTUEL CASHIER IMPRESSION: 1. Diffuse bilateral interstitial disease lung disease with septal thickening a nd small pleural effusions, likely interstitial edema versus chronic interstiti al lung disease. 2: No evidence for pulmonary embolism. 3: Moderate cardiomegaly. 4: Mediastinal lymphadenopathy, likely reactive.
--- NOTE | ~2022-01-18 | XR_ITS ---
XR chest 1V portable 01/18/2022 01:03 Indication: Shortness of breath. Productive cough. Procedure: AP portable chest Comparison: 06/03/2020 Findings: There is a right IJ central line, tip in the SVC. Moderate cardiomegaly. There is diffuse i nterstitial edema. No significant effusion or pneumothorax. There are changes of aortic valve replace ment. Impression: 1: Moderate cardiomegaly with interstitial edema. Reviewed, dictated and finalized at location A. STED LIVING HOUSEKEEPER Impression: 1: Moderate cardiomegaly with interstitial edema.
--- NOTE | 2022-01-18 00:30 | ECG_ITS ---
Measurements Intervals [place] Rate: 109 P: [place]: 0 QRS: 74 QRSD: 82 T: 15 QT: 325 QTc: 439 Interpretive Statements ATRIAL FIBRILLATION WITH RAPID VENTRICULAR RESPONSE BASELINE ARTIFACT RSR' V1 AND V2 LOW QRS VOLTAGE IN PRECORDIAL LEADS NONSPECIFIC ST ABNORMALITY ABNORMAL ECG NO PREVIOUS ECG AVAILABLE FOR COMPARISON Electronically Signed On 01-18-2022 13:28:29 [employer]PERVISOR [employer] by Ravi Cristina M.D.
[2022-01-18] MEDS: IPRATROPIUM 0.5 MG/ALBUTEROL SULFATE 2.5 MG AMPUL.NEB 3 ML (00:33)
[2022-01-18] MEDS: methylPREDNISolone SOD SUCC 125 MG VIAL IV PUSH (00:51)
[2022-01-18] MEDS: MAGNESIUM SULF 2 GM/WATER 50ML 2 GM/50 ML BAG IVPB (00:55)
[2022-01-18 01:00] LABS: Base Excess ABG 0.3 mmol/L (0-2); HCO3 ABG 24.3 mmol/L (23-29); Oxygen Content ABG 18.5 %vol (16.0-22.0); Oxygen Saturation ABG 96.6 % (95-97); Oxyhemoglobin 95.5 % (94-100); PCO2 ABG 37.7 mmHg (35-45); PO2 ABG 92.3 mmHg (75-85); Total Hemoglobin 13.7 g/dL (12.0-18.0); pH ABG 7.43 (7.35-7.45)
--- NOTE | 2022-01-18 01:03 | ED.SOB ---
HPI - SOB/Dyspnea General Chief Complaint: Shortness of Breath/Dyspnea Stated Complaint: SOB Source: patient Mode of arrival: ambulatory Limitations: no limitations History of Present Illness HPI Narrative: is an 81-year-old female who presents with shortness of breath over the last week she has been having cold-like symptoms and over the last 2 to 3 hours have progressively worsened and became short of breath coughing with initially labored breathing, with some history of atrial fibrillation and hypertension, patient is a former smoker is vaccinated for COVID. Currently no chest pain no fever chills no abdominal pain no diarrhea constipation no flank pain. MD elicited complaint: shortness of breath and cough Onset (ago): day(s) Context: recent illness Severity: moderate Related Data Home Medications Medication Instructions Recorded Confirmed alprazolam 0.5 mg tablet 0.5 mg PO HS 11/30/19 10/19/20 aspirin 81 mg tablet 81 mg PO DAILY 11/30/19 10/19/20 furosemide 40 mg tablet 40 mg PO DAILY 11/30/19 10/19/20 losartan 25 mg tablet 12.5 mg PO DAILY 11/30/19 10/19/20 metoprolol succinate 25 mg 50 mg PO BID 11/30/19 10/19/20 tablet,extended release 24 hr potassium chloride 10 mEq 20 meq PO BID 11/30/19 10/19/20 tablet,extended release(part/cryst) rivaroxaban 20 mg tablet (Xarelto) 20 mg PO HS 11/30/19 10/19/20 sertraline 50 mg tablet 50 mg PO DAILY 11/30/19 10/19/20 simvastatin 40 mg tablet 40 mg PO HS 11/30/19 10/19/20 Allergies Allergy/AdvReac Type Severity Reaction Status Date / Time phytonadione (vitamin K1) AdvReac Unknown Verified 03/19/21 14:20 Review of Systems Review of Systems: All systems reviewed & are unremarkable except as noted in HPI and below PMFSH Past Medical History Medical History Anxiety Arthritis Atrial fibrillation Carotid artery stenosis Colon cancer Depression GERD (gastroesophageal reflux disease) Hernia History of vaginal delivery x 2 HTN (hypertension) Hyperlipidemia Rectal cancer Surgical History Surgical History H/O resection of rectum History of cataract surgery History of partial colectomy S/P carotid endarterectomy Family History Family History Mother Family history non-contributory Sibling Lung cancer Social History Social History Smoking status: Former smoker Alcohol intake: current Drinks per week: 2 Substance use: never Gender identity (if verbalized by the patient): Male Exam Const: General: no acute distress and alert Limitations: no limitations HENMT: Head: normal to inspection Ears: external ears normal Face/Nose/Sinus: Normal external nose present Face and sinus: normal facial exam Mouth: Yes Normal oral and palatal mucosa present Eyes: Conjunctivae: conjunctivae normal Pupils: Equal, round and reactive pupils present EOM: EOMs intact bilaterally Neck: Neck: normal visual inspection Chest: Chest palpation & inspection: normal inspection of the chest Resp: Effort & Inspection: normal respiratory effort Auscultation: rhonchi and diminished lung sounds Cardio: Rate: regular rate Rhythm: abnormal rhythm GI: GI Palp: Yes Soft to palpation Auscultation: normal bowel sounds : General: Yes bladder normal to palpation Urinary Catheter: Urinary Catheter: patent and draining Back/Spine/Pelvis: Back: no CVA tenderness Skin: General skin exam: normal color Rashes: no rashes Neuro: General: patient oriented x3 and moves all extremities Cranial nerves: Yes Nystagmus not present Speech: normal speech Extrem: General: normal to inspection Psych: Mental Status: mental status grossly normal Affect: normal affect Course Course Emergency Course: Reassessment of patient much improved after initially
[2022-01-18 01:05] LABS: Device NASAL CANNULA; Modified Allen's Test Pass; Site Drawn RIGHT RADIAL
[2022-01-18 01:19] LABS: INR 1.5; Partial Thromboplastin Time 38.3 SEC (23.90-30.70); Prothrombin Time 15.6 Seconds (9.50-12.10)
[2022-01-18 01:24] LABS: Lactic Acid Reflex 1.3 mmol/L (0.4-2.0)
[2022-01-18] MEDS: FUROSEMIDE INJ 40 MG/4 ML VIAL IV PUSH (01:25)
[2022-01-18 01:26] LABS: Basophils Absolute Auto 0.03 K/mm3 (0.00-0.10); Basophils Percent Auto 0.4 % (0.0-1.0); Eosinophils Absolute Auto 0.02 K/mm3 (0.02-0.50); Eosinophils Percent Auto 0.3 % (1.0-6.0); Hematocrit 39.6 % (35.0-42.0); Immature Granulocyte Absolute 0.03 K/mm3 (0.00-0.00); Immature Granulocyte Percent A 0.4 % (0.0-0.0); Immature Platelet Fraction Pct 3.3 % (1.0-7.0); Lymphocytes Percent Auto 6.9 % (18.0-42.0); Mean Corpuscular HGB Conc 32.8 g/dL (32.0-36.0); Mean Corpuscular Hemoglobin 30.6 pg (27.0-31.0); Mean Corpuscular Volume 93.2 fL (78.0-102.0); Mean Platelet Volume 11.3 fl (9.2-11.8); Monocytes Absolute Auto 0.78 K/mm3 (0.10-0.90); Monocytes Percent Auto 10.8 % (2.0-11.0); Neutrophils Absolute Auto 5.9 K/mm3 (1.7-7.2); Neutrophils Percent Auto 81.2 % (50.0-70.0); Platelet Count Result 135 K/mm3 (150-420); Red Blood Count 4.25 M/mm3 (4.20-5.40); Red Cell Distribution Width 14.4 % (11.6-14.4); White Blood Count 7.3 K/mm3 (4.8-10.8)
[2022-01-18 01:27] LABS: Alanine Aminotransferase 13 U/L (14-59); Albumin Level 3.4 g/dL (3.4-5.0); Alkaline Phosphatase 109 U/L (46-116); Anion Gap 8 mmol/L (8-16); Aspartate Amino Transferase 24 U/L (15-37); Bilirubin,Total 1.3 mg/dL (0.00-1.00); Blood Urea Nitrogen 18 mg/dL (7-18); Calcium 8.7 mg/dL (8.5-10.1); Carbon Dioxide 30 mmol/L (21-32); Chloride 99 mmol/L (98-108); Estimated CRCL calculation 50 ml/min; Estimated Glomerular Filt Rate 58; Glucose 144 mg/dL (70-99); Magnesium 1.4 mg/dL (1.8-2.4); NT Pro B Type Natriuretic Pept 2250 pg/mL (0-450); Osmolality Calculated 288 mOsm/kg (285-295); Potassium 4.2 mmol/L (3.5-5.1); Sodium 137 mmol/L (136-145); Total Protein 7.8 g/dL (6.4-8.2); Troponin I 5.8 ng/L (0.00-60.4)
[2022-01-18 01:28] LABS: CRP 5.8 mg/dL (0.0-0.9)
--- NOTE | 2022-01-18 01:30 | PC.NURSE ---
Pt rolled and removed wet linens, pt has urine incontinence c coughing,order obtained for catheter. VSS at this time, awaiting lab test results.
[2022-01-18 01:41] LABS: D Dimer 0.84 mg/L (0.19-0.50)
[2022-01-18 02:05] LABS: Appearance Urine Clear (Clear); Bilirubin Urine Negative (Negative); Glucose Urine UA Negative (Negative); Ketones Urine Negative (Negative); Leukocyte Esterase Ur Negative LEU/UL (Negative); Nitrate Urine Negative (Negative); Protein Urine Negative (Negative); Urobilinogen Urine 0.2 mg/dL (0.2-1.0)
[2022-01-18 02:11] LABS: Influenza A QL RT-PCR Negative (Negative); Influenza B QL RT-PCR Negative (Negative)
[2022-01-18 02:11] LABS: Add Urine Microscopic? YES; Amorphous Sediment Urine Few; Blood Urine Trace-Intact (Negative); Color Urine Light Yellow (Yellow); Mucus Urine Few /lpf; RBC Urine 0-2 /hpf (0-2); Squamous Epithelial Cell Urine Few /hpf (Few)
[2022-01-18 02:14] LABS: SARS-CoV-2 RNA PCR Negative (Negative)
[2022-01-18] MEDS: ONDANSETRON INJ 4 MG/2 ML VIAL IV PUSH (02:15)
--- NOTE | 2022-01-18 02:50 | PC.NURSE ---
Pt resting, VSS, grand-daughters at bedside at this time. Pt reports she is breathing much easier, A-fib continues on monitor. Awaiting CTA report, pt. aware of POC.
--- NOTE | 2022-01-18 03:22 | PC.NURSE ---
Pt talking c grand-daughters at bedside, still awaiting reports, VSS. No distress, monitor shows Afib, HR 86.
--- NOTE | 2022-01-18 04:04 | PC.NURSE ---
Call placed to [facility] by radiology due to no report back yet. Informed pt. of no reading at this time and will be another 45 min. until report is given. Lights dimmed, pt resting eyes closed and family at bedside. VSS, no distress, Spo2 96% on 3L NC.
--- NOTE | 2022-01-18 05:02 | PC.NURSE ---
Pt restless in bed, still awaiting CTA results, VSS. Call placed to [facility] about possible admit orders for pt. Wanting to await results. Info explained to pt about waiting for results.
--- NOTE | 2022-01-18 05:30 | PC.NURSE ---
Call placed by this RN to [facility] for reading, spoke c retail representative about 3 hr wait and needing reading. Will await report.
--- NOTE | 2022-01-18 05:43 | PC.NURSE ---
[facility] calls to inquire if [facility] ED has received CT report and the name of ERP.
--- NOTE | 2022-01-18 05:46 | PC.NURSE ---
CTA report back and given to ERP, VSS and pt remains stable, no distress, talking and listening to music c her granddaughters at this time. POC for 23 hr obs admit discussed c pt.
--- NOTE | 2022-01-18 06:22 | PC.NURSE ---
Awaiting hospitalist Dionisio to call back p reviewing pt chart for acceptance. Awaiting call back for acceptance.
--- NOTE | 2022-01-18 06:40 | PC.NURSE ---
Dr Lakhani spoke to Dionisio, orders to go ahead and admit for obs. ok'd.
--- NOTE | 2022-01-18 07:00 | PC.NURSE ---
Pt taken to Rm 203 for obs. admit. Pt stood and moved self to bed s difficulty.
[2022-01-18] MEDS: IPRATROPIUM 0.5 MG/ALBUTEROL SULFATE 2.5 MG AMPUL.NEB 3 ML INHALATION ×3 (07:25→18:28)
[2022-01-18] MEDS: POTASSIUM CHLORIDE 10 MEQ TABLET PO ×2 (09:20→17:10)
[2022-01-18] MEDS: ASPIRIN 81 MG ENTERIC TABLET PO (09:20)
[2022-01-18] MEDS: LOSARTAN POTASSIUM 12.5 MG TABLET PO (09:20)
[2022-01-18] MEDS: FUROSEMIDE 40 MG TABLET PO ×2 (09:21→17:10)
[2022-01-18] MEDS: METOPROLOL SUCCINATE EXT REL 50 MG TABCR PO ×2 (09:21→17:10)
[2022-01-18] MEDS: SERTRALINE HCL 50 MG TABLET PO (09:21)
[2022-01-18] MEDS: BENZONATATE 100 MG CAPSULE 200 MG PO ×2 (10:36→17:09)
[2022-01-18] MEDS: guaiFENesin 12 HR 600 MG TABCR 1200 MG PO ×2 (10:36→20:39)
[2022-01-18] MEDS: methylPREDNISolone SOD SUCC 40 MG VIAL IV PUSH ×2 (12:15→17:09)
--- NOTE | 2022-01-18 14:53 | PC.NURSE ---
Pt admitted to room 203 as an observation pt. Pt is A/O X 3, afebrial with a deep lose cough and decreased pulse ox in ER. O2 @ 2.5L/NC. Pt educated regarding Call system, TV control, visiting hours. She may be up with cane and gait belt and 1 assist.
[2022-01-18] MEDS: RIVAROXABAN 10 MG TABLET 20 MG PO (20:39)
[2022-01-18] MEDS: SIMVASTATIN 10 MG TABLET 40 MG PO (20:39)
[2022-01-18] MEDS: ALPRAZolam (*CRX) 0.5 MG TABLET PO (20:39)
--- NOTE | 2022-01-18 21:50 | PC.NURSE ---
Jessa Harrell SECONDARY SOCIAL STUDIES TEACHER notified of patient's escalera catheter leaking and patient not wanting another one put in. Orders received to discontinue catheter. Catheter removed and patient tolerated well.
[2022-01-18] MEDS: guaiFENesin/CODEINE 100/10 MG 5 ML SYRUP 10 ML PO (22:49)
[2022-01-19] VITALS (23 sets, daily range): BP systolic 90–120; BP diastolic 54–74; PULSE 78–130; RESP 12–20; TEMP 36.1–36.6; O2SAT 84–99
[2022-01-19] MEDS: IPRATROPIUM 0.5 MG/ALBUTEROL SULFATE 2.5 MG AMPUL.NEB 3 ML INHALATION ×5 (00:15→23:36)
[2022-01-19] MEDS: methylPREDNISolone SOD SUCC 40 MG VIAL IV PUSH ×4 (00:42→18:00)
[2022-01-19] MEDS: BENZONATATE 100 MG CAPSULE 200 MG PO ×3 (09:00→16:27)
[2022-01-19] MEDS: SERTRALINE HCL 50 MG TABLET PO (09:03)
[2022-01-19] MEDS: FUROSEMIDE 40 MG TABLET PO (09:03)
[2022-01-19] MEDS: LOSARTAN POTASSIUM 12.5 MG TABLET PO (09:03)
[2022-01-19] MEDS: ASPIRIN 81 MG ENTERIC TABLET PO (09:04)
[2022-01-19] MEDS: METOPROLOL SUCCINATE EXT REL 50 MG TABCR PO ×2 (09:04→16:27)
[2022-01-19] MEDS: POTASSIUM CHLORIDE 10 MEQ TABLET PO ×2 (09:05→16:28)
--- NOTE | 2022-01-19 09:38 | HOMEO2EVAL ---
Evaluation was performed at [facility] Home Oxygen Evaluation RC: Home Oxygen (O2) Evaluation Start: 01/19/22 08:57 Freq: ONCE Status: Active Protocol: RPE Activity Type Activity Date Activity User E-sign Co-sign Detail Recorded Client Recorded Date Recorded By Document 01/19/22 09:10 [id number] 01/19/22 09:24 CH Document 01/19/22 09:15 [id number] 01/19/22 09:38 CH Document 01/19/22 09:17 [id number] 01/19/22 09:38 Document 01/19/22 09:20 [id number] 01/19/22 09:38 Document 01/19/22 09:25 [id number] 01/19/22 09:38 01/19/22 01/19/22 01/19/22 09:10 09:15 09:17 Home O2 Evaluation [Oxygen] -Test Phase Resting Resting Exercise -Oxygen Delivery Room Air Nasal Cannula Nasal Cannula -Oxygen Flow Rate (L/min) 1 1 [Pulse Oximetry] -Pulse Oximetry (90-100 %) 87 L 90 85 L [Pulse Rate] -Pulse Rate (60-100 beats/min) 96 98 110 H [Evaluation] -Activity Tolerance Good Good Good -Rating of Perceived Dyspnea (PD) +2 Mild, Some Difficulty, Noticeable to the Observer -Rate of Perceived Exertion (PE) 12 Query Text:Click the Protocol Button to View the RPE Scale [Exercise] -Ambulation Distance (feet) 30 -Ambulation Distance (meters) 9.14 [Comments] -Home Oxygen Evaluation Comments will begin walk walked the pt on 1L 30 ft dropped to 85% will turn up to 2L [Charges] -Treatment Charges O2 Evaluation - Inpatient 01/19/22 01/19/22 09:20 09:25 Home O2 Evaluation [Oxygen] -Test Phase Exercise Exercise -Oxygen Delivery Nasal Cannula Nasal Cannula -Oxygen Flow Rate (L/min) 2 3 [Pulse Oximetry] -Pulse Oximetry (90-100 %) 86 L 92 [Pulse Rate] -Pulse Rate (60-100 beats/min) 111 H 130 H [Evaluation] -Activity Tolerance Good Good -Rating of Perceived Dyspnea (PD) +2 Mild, Some +2 Mild, Some Difficulty, Difficulty, Noticeable to Noticeable to the Observer the Observer -Rate of Perceived Exertion (PE) 12 13 Somewhat Query Text:Click the Protocol Button Hard to View the RPE Scale [Exercise] -Ambulation Distance (feet) 10 80 -Ambulation Distance (meters) 3.04 24.38 [Comments] -Home Oxygen Evaluation Comments walked 10 ft pt ended walk dropped to 86% on 3L 92% heart placed pt on 3L rate 130 pushing wheelchair. Purse lipped breathing encouraged. [Charges] -Treatment Charges
[2022-01-19 09:48] LABS: Hematocrit 37.6 % (35.0-42.0); Hemoglobin 12.4 g/dL (11.7-13.8); Mean Corpuscular Hemoglobin 30.8 pg (27.0-31.0); Mean Corpuscular Volume 93.3 fL (78.0-102.0); Mean Platelet Volume 10.3 fl (9.2-11.8); Platelet Count Result 153 K/mm3 (150-420); Red Blood Count 4.03 M/mm3 (4.20-5.40); Red Cell Distribution Width 14.1 % (11.6-14.4); White Blood Count 10.8 K/mm3 (4.8-10.8)
[2022-01-19 10:07] LABS: Alanine Aminotransferase 12 U/L (14-59); Albumin Level 3.3 g/dL (3.4-5.0); Alkaline Phosphatase 100 U/L (46-116); Anion Gap 9 mmol/L (8-16); Aspartate Amino Transferase 20 U/L (15-37); Bilirubin,Total 0.7 mg/dL (0.00-1.00); Blood Urea Nitrogen 32 mg/dL (7-18); Calcium 8.6 mg/dL (8.5-10.1); Carbon Dioxide 28 mmol/L (21-32); Chloride 94 mmol/L (98-108); Estimated CRCL calculation 36 ml/min; Estimated Glomerular Filt Rate 41; Glucose 274 mg/dL (70-99); Osmolality Calculated 288 mOsm/kg (285-295); Potassium 4.2 mmol/L (3.5-5.1); Sodium 131 mmol/L (136-145); Total Protein 7.6 g/dL (6.4-8.2)
[2022-01-19 10:34] LABS: Magnesium 1.8 mg/dL (1.8-2.4)
--- NOTE | 2022-01-19 11:42 | PM.IMHP ---
H&P: HPI History of Present Illness Date/Time: 01/19/22 11:42 Chief Complaint: shortness of breath dyspnea Narrative: this 81-year-old female presented to emergency department with complaints of worsening shortness of breath. In cold-like symptoms. Patient has a history of anxiety, arthritis, AFib, coronary artery stenosis, colon cancer, depression, GERD, hypertension, hyperlipidemia and rectal cancer. According to patient every year she experience cold-like symptoms. WBC 7.3 hemoglobin 13.0 hematocrit 39.6, platelets 135 D-dimer 0.84 ABGs pH 7.43 CO2 37.7 O2 92.3 bicarb 24.3 sodium 137 potassium 4.2 BUN 18 and 0.93 glucose 144 lactic acid 1.3 magnesium 1.4 troponin 5.8 CRP 5.8 BNP 2250, UA trace of blood COVID influenza negative chest x-ray indicate pulmonary edema CTA negative for PE EKG AFib RVR her rate 109. patient will be admitted for congestive heart failure and viral illness. Patient does complain of a a controllable cough occasional shortness of breath PMFSH Past Medical History Medical History Anxiety Arthritis Atrial fibrillation Carotid artery stenosis Colon cancer Depression GERD (gastroesophageal reflux disease) Hernia History of vaginal delivery x 2 HTN (hypertension) Hyperlipidemia Rectal cancer Surgical History Surgical History H/O resection of rectum History of cataract surgery History of partial colectomy S/P carotid endarterectomy Family History Family History Mother Family history non-contributory Sibling Lung cancer Social History Social History Smoking packs per day: 1 Smoking cigarettes per day: 20.0 Years smoked: 60 Smoking pack-years: 60.00 Smoking status: Former smoker Tobacco type: cigarettes Second hand tobacco smoke exposure: No Alcohol intake: never Drinks per week: 2 Substance use: current Substance use type: does not use Lack of Transportation: No Lack of Food: Never True Current Housing: I Have Housing Concerned About Future Housing: No Difficulty Paying Gas/Electric Bills: No Difficulty Paying for Meds: No Currently Unemployed: No Education: High School Diploma/GED Difficulty w/ Childcare or Family Care: No Gender identity (if verbalized by the patient): Male Spiritual care concerns: No Meds Home Medications and Allergies Home Medications Medication Instructions Recorded Confirmed Type alprazolam 0.5 mg tablet 0.5 mg PO HS 11/30/19 01/18/22 History aspirin 81 mg tablet 81 mg PO DAILY 11/30/19 01/18/22 History furosemide 40 mg tablet 40 mg PO DAILY 11/30/19 01/18/22 History losartan 25 mg tablet 12.5 mg PO DAILY 11/30/19 01/18/22 History metoprolol succinate 25 mg 50 mg PO BID 11/30/19 01/18/22 History tablet,extended release 24 hr potassium chloride 10 mEq 10 meq PO BID 11/30/19 01/18/22 History tablet,extended release(part/cryst) rivaroxaban 20 mg tablet (Xarelto) 20 mg PO HS 11/30/19 01/18/22 History sertraline 50 mg tablet 50 mg PO DAILY 11/30/19 01/18/22 History simvastatin 40 mg tablet 40 mg PO HS 11/30/19 01/18/22 History benzonatate 100 mg capsule 200 mg PO TID #30 caps 01/19/22 Rx guaifenesin 100 mg/5 mL oral liquid 200 mg (10 mL) PO Q4H PRN Cough 10 01/19/22 Rx days #1,000 mL Allergies Allergy/AdvReac Type Severity Reaction Status Date / Time phytonadione (vitamin K1) AdvReac Unknown Verified 03/19/21 14:20 Vital Signs Vital Signs - 24 hr 01/18/22 12:51 01/18/22 13:06 01/18/22 12:00 Temperature Pulse Rate 93 96 84 Respiratory Rate 20 20 Blood Pressure Pulse Oximetry Oxygen Delivery Oxygen Flow Rate 01/18/22 14:00 01/18/22 15:01 01/18/22 16:30 Temperature 97.8 F Pulse Rate 94 92 85 Respiratory Rate 16 16 Blood Pressure 110/75 Pu
[2022-01-19] MEDS: HEPARIN SODIUM LOCK FLUSH 500 UNITS/5 ML SYRINGE (12:10)
[2022-01-19] MEDS: FUROSEMIDE 20 MG TABLET PO (12:12)
[2022-01-19] MEDS: guaiFENesin/CODEINE 100/10 MG 5 ML SYRUP 10 ML PO ×2 (14:12→21:21)
[2022-01-19] MEDS: ALPRAZolam (*CRX) 0.5 MG TABLET PO (21:22)
[2022-01-19] MEDS: SIMVASTATIN 10 MG TABLET 40 MG PO (21:22)
[2022-01-19] MEDS: RIVAROXABAN 10 MG TABLET 20 MG PO (21:22)
[2022-01-20] VITALS (8 sets, daily range): BP systolic 106–124; BP diastolic 60–71; PULSE 74–85; RESP 16–20; TEMP 36–36.6; O2SAT 91–96; BMI 42.4
[2022-01-20] MEDS: methylPREDNISolone SOD SUCC 40 MG VIAL IV PUSH ×3 (00:28→11:58)
[2022-01-20] MEDS: guaiFENesin/CODEINE 100/10 MG 5 ML SYRUP 10 ML PO (02:50)
[2022-01-20] MEDS: IPRATROPIUM 0.5 MG/ALBUTEROL SULFATE 2.5 MG AMPUL.NEB 3 ML INHALATION (05:11)
[2022-01-20 05:54] LABS: Hematocrit 36.6 % (35.0-42.0); Hemoglobin 12.1 g/dL (11.7-13.8); Mean Corpuscular HGB Conc 33.1 g/dL (32.0-36.0); Mean Corpuscular Hemoglobin 30.9 pg (27.0-31.0); Mean Corpuscular Volume 93.4 fL (78.0-102.0); Mean Platelet Volume 10.8 fl (9.2-11.8); Platelet Count Result 155 K/mm3 (150-420); Red Blood Count 3.92 M/mm3 (4.20-5.40); Red Cell Distribution Width 14.2 % (11.6-14.4)
[2022-01-20 06:10] LABS: Albumin Level 3.1 g/dL (3.4-5.0); Alkaline Phosphatase 91 U/L (46-116); Anion Gap 7 mmol/L (8-16); Aspartate Amino Transferase 22 U/L (15-37); Bilirubin,Total 0.6 mg/dL (0.00-1.00); Blood Urea Nitrogen 37 mg/dL (7-18); Calcium 8.4 mg/dL (8.5-10.1); Carbon Dioxide 30 mmol/L (21-32); Chloride 97 mmol/L (98-108); Estimated CRCL calculation 46 ml/min; Estimated Glomerular Filt Rate 55; Glucose 150 mg/dL (70-99); Osmolality Calculated 289 mOsm/kg (285-295); Potassium 4.3 mmol/L (3.5-5.1); Sodium 134 mmol/L (136-145); Total Protein 7.2 g/dL (6.4-8.2)
[2022-01-20 06:26] LABS: Alanine Aminotransferase 16 U/L (14-59)
[2022-01-20] MEDS: FUROSEMIDE 40 MG TABLET PO (08:19)
[2022-01-20] MEDS: METOPROLOL SUCCINATE EXT REL 50 MG TABCR PO (08:20)
[2022-01-20] MEDS: BENZONATATE 100 MG CAPSULE 200 MG PO (08:20)
[2022-01-20] MEDS: ASPIRIN 81 MG ENTERIC TABLET PO (08:21)
[2022-01-20] MEDS: SERTRALINE HCL 50 MG TABLET PO (08:21)
[2022-01-20] MEDS: LOSARTAN POTASSIUM 12.5 MG TABLET PO (08:21)
[2022-01-20] MEDS: POTASSIUM CHLORIDE 10 MEQ TABLET PO (08:22)
[2022-01-20] MEDS: PANTOPRAZOLE SODIUM IV 40 MG VIAL IV PUSH (08:23)
--- NOTE | 2022-01-20 08:43 | PM.DS ---
DS: Admitting Diagnosis Discharge Date 01/20/2022 Admitting Diagnosis COPD exacerbation DS: Discharge Diagnosis Discharge Diagnosis (1) Congestive heart failure: Qualifiers: Heart failure chronicity: acute on chronic Heart failure type: unspecified Qualified Code(s): I50.9 - Heart failure, unspecified Code(s): I50.9 - Heart failure, unspecified Status: Acute Assessment and Plan: chronic cxr indicate pulmonary edema continue Lasix 40 mg a.m. and 20 mg noon continue daily weights at home (2) Atrial fibrillation: Code(s): I48.91 - Unspecified atrial fibrillation Status: Acute Assessment and Plan: will closely monitor patient's heart rate according to nurse patient heart rate dropped in the 30s for a brief moment currently heart rate documented as 130 continue metoprolol 50 mg b.i.d. and Eliquis continue telemetry will adjust medication as needed (3) HTN (hypertension): Code(s): I10 - Essential (primary) hypertension Status: Acute Assessment and Plan: stable continue home medication will adjust medication as needed vital signs is ordered (4) Hyperlipidemia: Code(s): E78.5 - Hyperlipidemia, unspecified Status: Acute Assessment and Plan: continue statins (5) GERD (gastroesophageal reflux disease): Code(s): K21.9 - Gastro-esophageal reflux disease without esophagitis Status: Acute Assessment and Plan: (6) Arthritis: Code(s): M19.90 - Unspecified osteoarthritis, unspecified site Status: Acute (7) Anxiety: Code(s): F41.9 - Anxiety disorder, unspecified Status: Acute Assessment and Plan: continue Xanax (8) Weakness: Code(s): R53.1 - Weakness Status: Acute Assessment and Plan: patient will receive outpatient PT OT DS: Summary Hospital Course Reason for hospitalization: Shortness of breath Hospital Course: ?this 81-year-old female presented to emergency department with complaints of worsening shortness of breath.? In cold-like symptoms.? Patient has a history of anxiety, arthritis, AFib,? coronary artery stenosis, colon cancer, depression, GERD, hypertension, hyperlipidemia and rectal cancer.? According to patient every year she? experience cold-like symptoms. WBC 7.3 hemoglobin 13.0 hematocrit 39.6, platelets 135 D-dimer 0.84 ABGs pH 7.43 CO2 37.7 O2 92.3 bicarb 24.3 sodium 137 potassium 4.2 BUN 18 and 0.93 glucose 144 lactic acid 1.3 magnesium 1.4 troponin 5.8 CRP 5.8 BNP 2250, UA trace of blood COVID influenza negative chest x-ray indicate pulmonary edema CTA negative for PE EKG AFib RVR her rate 109. patient will be admitted for congestive heart failure and viral illness.? Patient does complain of a a controllable cough occasional shortness of breath patient did note that her coughing has improved. patient will discharge today with an additional dose of Lasix 20 mg for 5 days she was also given instructions on monitoring her congestive heart failure. And instructed to use [id number] medication for her viral illness. The patient denies CP, palpitation, extremity numbness, lightheadedness, dizziness, constipation, diarrhea, chills, or fever. Discharge instructions reviewed with patient, as well as provided in writing per nursing staff. The instructions also include specific and strict return/GO TO THE ER as well as f/u information. All questions have been answered, and the patient and/or family deny any further questions with discharge and discharge plan. Time Spent with Patient Time attestation: Total time spent providing and/or coordinating discharge services: Exam Narrative: GENERAL: This is a well-nourished, well-developed patient, in no apparent distress. HEAD: normocephalic, atraumatic. EYES: PERRL. Sclera clear/white. Vision is grossly intact. EARS: External ears normal, auditory canals clear and without drainage,
[2022-01-20] MEDS: FUROSEMIDE 20 MG TABLET PO (11:58)
--- NOTE | 2022-01-20 12:21 | PC.NURSE ---
IV discontinued in preparation for discharge. Port flushed and heparin locked.
--- NOTE | 2022-01-20 13:50 | PC.NURSE ---
Extensive discharge instructions given to patient and her granddaughter related to CHF and O2 use at home. Both voiced understanding. Patient left unit in w/c accompanied by customs entry writer and patient's granddaughter. O2 tank sent home with patient as well as instructions on contacting O2 company when they get home. Personal items sent home with patient. Patient left hospital in private vehicle.
--- NOTE | 2022-01-21 14:29 | PC.NURSE ---
Pt states she received her instructions. She said she didn't understand them and that there was too much to go over but her granddaughter was there to listen and is staying with her to help her. Pt upset over how long it took in the ER and the fact that she was never seen by a physician once she was admitted.
== END 2022-01-20 13:50 | disposition home or self-care (01) ==
LOC: CHSED 05:45 → CHS2ND 06:50
PROVIDERS: Nurse Practitioner; Admitting Provider Internal Medicine; Emergency Provider Emergency Medicine; PCP Family Medicine; Visit Provider Internal Medicine
DX: I11.0 Hypertensive heart disease with heart failure (principal); I50.9 Heart failure, unspecified; B34.9 Viral infection, unspecified; I25.10 Atherosclerotic heart disease of native coronary artery without angina pectoris; I48.20 Chronic atrial fibrillation, unspecified; I65.29 Occlusion and stenosis of unspecified carotid artery; K21.9 Gastro-esophageal reflux disease without esophagitis; E78.5 Hyperlipidemia, unspecified; M19.90 Unspecified osteoarthritis, unspecified site; F41.9 Anxiety disorder, unspecified; F32.A Depression, unspecified; Z20.822 Contact with and (suspected) exposure to COVID-19; Z87.891 Personal history of nicotine dependence; Z90.49 Acquired absence of other specified parts of digestive tract; Z85.038 Personal history of other malignant neoplasm of large intestine
CPT/HCPCS: 36415; 36600; 71045; 71275; 80053; 81001; 82805; 83605; 83735; 83880; 84484; 85025; 85027; 85055; 85380; 85610; 85730; 86140; 87040; 87502; 93005; 94618; 94640; 96365; 96367; 96368; 96375; 96376; 97161; 97165; 99285; A9270; C9113; G0378; J0456; J0696; J1940; J2405; J2920; J2930; J3475; Q9967; U0003; U0005

== ENCOUNTER 2022-02-01 10:22 | Observation (INO) | payer MEDICARE, SELFPAY ==
[2022-02-01] VITALS (9 sets, daily range): BP systolic 117–140; BP diastolic 63–79; PULSE 75–95; RESP 16–18; TEMP 36.3–36.7; O2SAT 93–97; BMI 42.6
--- NOTE | ~2022-02-01 | CT_ITS ---
EXAMINATION: CT abdomen pelvis w con INDICATION: Lower abdominal TECHNIQUE: Computed tomographic images of the abdomen and pelvis were obtained after the administrati on of 100 cc of Omnipaque 350 intravenous contrast. The dose-length product (DLP) was 1440.19 mGy-cm. Automated exposure control and iterative reconstruction technique were employed. COMPARISON: 09/19/2018 FINDINGS: Cardiomegaly is noted. There are airspace opacities and smooth interlobular septal thickeni ng of the visualized lung bases. Changes of endoluminal aortic valve replacement are noted. There are small pleural effusions. The liver, spleen, pancreas, and adrenal glands are normal. A stone is pres ent in the nondistended gallbladder. Cysts of the kidneys measure up to 4 mm on the right. There is c alcified atherosclerosis of the aorta and many of the other arteries. There is a diverting colostomy of the left lower quadrant. There is a chronic peristomal hernia containing large and small bowel. Th ere are no dilated loops of bowel. A small amount of edema is present in the mesentery of the herniat ed bowel loops. There are multiple fluid-filled, nondistended small bowel loops of the abdomen. No pa thologically enlarged abdominal or pelvic lymph nodes are identified. There is no free intraperitonea l gas or evidence of bowel obstruction. Severe lumbar spondylosis is noted. There is a calcified uter ine fibroid. IMPRESSION: 1. Chronic parastomal hernia left lower quadrant containing large and small bowel. 2. Fluid-filled loops of small bowel in the abdomen and in the hernia, with edema in the mesentery as sociated with a herniated loops, of unclear significance. No definite obstruction identified. 3. Cardiomegaly with pulmonary edema in the visualized lung bases. 4. Cholelithiasis without evidence of cholecystitis. Reviewed, dictated and finalized at location A. SPA MANAGER IMPRESSION: 1. Chronic parastomal hernia left lower quadrant containing large and small bow el. 2. Fluid-filled loops of small bowel in the abdomen and in the hernia, with mahendra ma in the mesentery associated with a herniated loops, of unclear significance. No definite obstruction identified. 3. Cardiomegaly with pulmonary edema in the visualized lung bases. 4. Cholelithiasis without evidence of cholecystitis.
--- NOTE | 2022-02-01 10:46 | ED.GENADULT ---
HPI - General Adult General Chief complaint: Abdominal Pain Stated complaint: abdominal pain and vomiting Time Seen by Provider: 02/01/22 10:45 Source: patient Mode of arrival: ambulatory Limitations: no limitations History of Present Illness HPI narrative: Patient is 81-year-old white female history of colon cancer and colostomy years ago presents to the emergency room complaining of abdominal pain diffuse 7/10 pain started yesterday associated with distention of her abdomen which is improved. She vomited some black material liquid this morning. She said her pain was a 9 or 10 yesterday or last night. She has had decreased p.o. intake but is able to hold down liquids. Denies any fever cough runny nose sore throat difficulty breathing back pain rash or itching. Denies any problems voiding or stooling. She describes her abdominal pain is crampy sharp. But right now is not as sharp. She has had she has had 1 stool the last 2 days and said it was brown in color. Denies any other complaints. Related Data Home Medications Medication Instructions Recorded Confirmed alprazolam 0.5 mg tablet 0.5 mg PO HS 11/30/19 02/01/22 aspirin 81 mg tablet 81 mg PO DAILY 11/30/19 02/01/22 furosemide 40 mg tablet 40 mg PO DAILY 11/30/19 02/01/22 losartan 25 mg tablet 12.5 mg PO DAILY 11/30/19 02/01/22 metoprolol succinate 25 mg 50 mg PO BID 11/30/19 02/01/22 tablet,extended release 24 hr potassium chloride 10 mEq 10 meq PO BID 11/30/19 02/01/22 tablet,extended release(part/cryst) rivaroxaban 20 mg tablet (Xarelto) 20 mg PO HS 11/30/19 02/01/22 sertraline 50 mg tablet 50 mg PO DAILY 11/30/19 02/01/22 simvastatin 40 mg tablet 40 mg PO HS 11/30/19 02/01/22 Allergies Allergy/AdvReac Type Severity Reaction Status Date / Time phytonadione (vitamin K1) AdvReac Unknown Verified 02/01/22 10:31 Review of Systems Review of Systems: All systems reviewed & are unremarkable except as noted in HPI and below Constitutional: Constitutional: Reports as per HPI and Reports no additional constitutional complaints Eyes: Eyes: Reports no additional eye complaints ENT: Reports system reviewed and no additional complaints, except as documented Cardiovascular: Cardiovascular: Reports no additional cardiovascular complaints and Denies chest pain Respiratory: Respiratory: Reports as per HPI and Reports no additional respiratory complaints Gastrointestinal: Gastrointestinal: Reports as per HPI, Reports no additional gastrointestinal complaints, Reports nausea and Reports vomiting Genitourinary: Genitourinary: Reports no additional female genitourinary complaints Musculoskeletal: Musculoskeletal: Reports no additional musculoskeletal complaints Integumentary/Breasts: Skin/Breast: Reports system reviewed and no additional complaints, except as docu Neurologic: Denies dizziness, Denies syncope, Denies headache(s) and Denies weakness PMFSH Past Medical History Medical History Anxiety Arthritis Atrial fibrillation Carotid artery stenosis Colon cancer Depression GERD (gastroesophageal reflux disease) Hernia History of vaginal delivery x 2 HTN (hypertension) Hyperlipidemia Rectal cancer Surgical History Surgical History H/O resection of rectum History of cataract surgery History of partial colectomy S/P carotid endarterectomy Family History Family History Mother Family history non-contributory Sibling Lung cancer Social History Social History Smoking packs per day: 1 Smoking cigarettes per day: 20.0 Years smoked: 60 Smoking pack-years: 60.00 Smoking status: Former smoker Tobacco type: cigarettes Second hand tobacco smoke exposure: No Alcohol intake: never Drinks per week: 2 Substance use:
[2022-02-01] MEDS: SODIUM CHLORIDE 0.9% IV 2,000 ML 999 ML IV CONT (11:34)
[2022-02-01] MEDS: ONDANSETRON INJ 4 MG/2 ML VIAL IV PUSH (11:37)
[2022-02-01] MEDS: MORPHINE SULFATE (*CRX) 2 MG/ML INJ IV PUSH (11:44)
[2022-02-01 11:56] LABS: Basophils Absolute Auto 0.02 K/mm3 (0.00-0.10); Basophils Percent Auto 0.1 % (0.0-1.0); Hematocrit 42.4 % (35.0-42.0); Hemoglobin 14.1 g/dL (11.7-13.8); Immature Granulocyte Absolute 0.11 K/mm3 (0.00-0.00); Immature Granulocyte Percent A 0.6 % (0.0-0.0); Lymphocytes Absolute Auto 0.52 K/mm3 (1.10-4.50); Mean Corpuscular HGB Conc 33.3 g/dL (32.0-36.0); Mean Corpuscular Hemoglobin 30.3 pg (27.0-31.0); Mean Corpuscular Volume 91.2 fL (78.0-102.0); Mean Platelet Volume 10.7 fl (9.2-11.8); Monocytes Absolute Auto 1.29 K/mm3 (0.10-0.90); Monocytes Percent Auto 7.4 % (2.0-11.0); Neutrophils Absolute Auto 15.6 K/mm3 (1.7-7.2); Neutrophils Percent Auto 88.9 % (50.0-70.0); Platelet Count Result 197 K/mm3 (150-420); Red Blood Count 4.65 M/mm3 (4.20-5.40); Red Cell Distribution Width 14.1 % (11.6-14.4); White Blood Count 17.5 K/mm3 (4.8-10.8)
[2022-02-01 11:58] LABS: Add Urine Microscopic? YES; Appearance Urine Clear (Clear); Bilirubin Urine 1+ (Negative); Blood Urine Negative (Negative); Color Urine Yellow (Yellow); Glucose Urine UA Negative (Negative); Ketones Urine Negative (Negative); Leukocyte Esterase Ur 1+ LEU/UL (Negative); Nitrate Urine Negative (Negative); Protein Urine Trace (Negative); Urobilinogen Urine >=8.0 mg/dL (0.2-1.0)
[2022-02-01] MEDS: SODIUM CHLORIDE 0.9% IV 1,000 ML 150 ML IV CONT (12:00)
[2022-02-01 12:05] LABS: Gastric Negative Control Negative; Gastric Positive Control Positive; Occult Blood Gastric Fluid Negative; pH Gastric Fluid 3 (1-8)
[2022-02-01 12:12] LABS: Amorphous Sediment Urine Few; Bacteria Urine 1+ /hpf; Mucus Urine Moderate /lpf; Squamous Epithelial Cell Urine Many /hpf (Few)
[2022-02-01 12:14] LABS: Alanine Aminotransferase 15 U/L (14-59); Albumin Level 3.2 g/dL (3.4-5.0); Alkaline Phosphatase 96 U/L (46-116); Anion Gap 7 mmol/L (8-16); Aspartate Amino Transferase 16 U/L (15-37); Bilirubin,Total 2.3 mg/dL (0.00-1.00); Blood Urea Nitrogen 20 mg/dL (7-18); Calcium 9.2 mg/dL (8.5-10.1); Carbon Dioxide 36 mmol/L (21-32); Chloride 93 mmol/L (98-108); Estimated CRCL calculation 49 ml/min; Estimated Glomerular Filt Rate 59; Glucose 141 mg/dL (70-99); Lipase 11 U/L (16-77); Osmolality Calculated 286 mOsm/kg (285-295); Potassium 3.1 mmol/L (3.5-5.1); Sodium 136 mmol/L (136-145); Total Protein 7.6 g/dL (6.4-8.2)
[2022-02-01 12:17] LABS: INR 1.4; Partial Thromboplastin Time 34.2 SEC (23.90-30.70); Prothrombin Time 14.8 Seconds (9.50-12.10)
[2022-02-01 12:21] LABS: Lactic Acid Reflex 2.9 mmol/L (0.4-2.0)
[2022-02-01 14:52] LABS: Reflex Lactic Acid Yes or No Add Lactic
--- NOTE | 2022-02-01 15:20 | ECG_ITS ---
Measurements Intervals [place] Rate: 81 P: [place]: 0 QRS: 93 QRSD: 87 T: 126 QT: 389 QTc: 454 Interpretive Statements ATRIAL FIBRILLATION BORDERLINE RIGHT AXIS DEVIATION [QRS AXIS > 90] NONSPECIFIC T-WAVE CHANGES LOW VOLTAGE EKG COMPARED TO ECG 01/18/2022 00:41:45 NO SIGNIFICANT CHANGES Electronically Signed On 02-01-2022 22:12:46 [employer] by Barbara Ureña M.D.
[2022-02-01 16:12] LABS: Lactic Acid 1.7 mmol/L (0.4-2.0)
[2022-02-01] MEDS: KCL 20 MEQ/SW 100 ML 100 ML 50 MEQ IVPB ×2 (17:40→19:40)
[2022-02-01] MEDS: METOCLOPRAMIDE HCL INJ 10 MG/2 ML VIAL IV PUSH (17:41)
[2022-02-01] MEDS: traZODone HCL 50 MG TABLET PO (22:10)
[2022-02-02] VITALS: BP 115/69; PULSE 100; RESP 18; TEMP 36.6; O2SAT 91
[2022-02-02] MEDS: METOCLOPRAMIDE HCL INJ 10 MG/2 ML VIAL IV PUSH ×2 (00:18→06:20)
[2022-02-02 05:16] LABS: Hematocrit 36.7 % (35.0-42.0); Hemoglobin 12.2 g/dL (11.7-13.8); Mean Corpuscular HGB Conc 33.2 g/dL (32.0-36.0); Mean Corpuscular Hemoglobin 31.1 pg (27.0-31.0); Mean Corpuscular Volume 93.6 fL (78.0-102.0); Mean Platelet Volume 10.7 fl (9.2-11.8); Platelet Count Result 164 K/mm3 (150-420); Red Blood Count 3.92 M/mm3 (4.20-5.40); Red Cell Distribution Width 14.6 % (11.6-14.4); White Blood Count 10.8 K/mm3 (4.8-10.8)
[2022-02-02 05:35] LABS: Alanine Aminotransferase 15 U/L (14-59); Albumin Level 2.8 g/dL (3.4-5.0); Alkaline Phosphatase 84 U/L (46-116); Anion Gap 8 mmol/L (8-16); Aspartate Amino Transferase 15 U/L (15-37); Bilirubin,Total 1.8 mg/dL (0.00-1.00); Blood Urea Nitrogen 18 mg/dL (7-18); Calcium 8.4 mg/dL (8.5-10.1); Carbon Dioxide 32 mmol/L (21-32); Chloride 97 mmol/L (98-108); Estimated CRCL calculation 47 ml/min; Estimated Glomerular Filt Rate 56; Glucose 107 mg/dL (70-99); Magnesium 1.7 mg/dL (1.8-2.4); Osmolality Calculated 285 mOsm/kg (285-295); Potassium 3.7 mmol/L (3.5-5.1); Sodium 137 mmol/L (136-145); Total Protein 6.6 g/dL (6.4-8.2)
--- NOTE | 2022-02-02 06:48 | PM.SD2 ---
Same Day Admit/Disch: HPI History of Present Illness Chief complaint: abdominal pain and vomiting Narrative: Salima Galaviz is a 81 year old female that presented to our emergency department with complaints of abdominal pain and nausea vomiting. Patient has a past medical history of anxiety, AFib, carotid artery stenosis, colon cancer, depression, GERD, hypertension, hyperlipidemia cancer. according to the patient her pain started yesterday to abdominal area for nausea and vomiting. Patient's vital signs WBC 7.5, hemoglobin 14.1, medically 42.4, platelets 197, sodium 136, potassium 3.1, BUN 20, creatinine 0.91, glucose 141 UA positive for protein bili leukocytes wbc's rbc's and bacteria patient occult blood negative, lactic acid 2.9 total bilirubin 2.3 AST 16 ALT 15. According to ER notes ER provider spoke with patient's GI doctor GI doctor recommended the patient get be given IV fluids with bowel rest in follow-up as outpatient. He did not feel the need for patient to transfer to consult with a GI specialist. The patient denies SOB, CP, palpitation, extremity numbness, lightheadedness, dizziness, constipation, diarrhea, chills, or fever. Discharge instructions reviewed with patient, as well as provided in writing per nursing staff. The instructions also include specific and strict return/GO TO THE ER as well as f/u information. All questions have been answered, and the patient and/or family deny any further questions with discharge and discharge plan. patient notes that her abdominal pain has improved and she is no longer experiencing nausea vomiting. [facility] Past Medical History Medical History Anxiety Arthritis Atrial fibrillation Carotid artery stenosis Colon cancer Depression GERD (gastroesophageal reflux disease) Hernia History of vaginal delivery x 2 HTN (hypertension) Hyperlipidemia Rectal cancer Surgical History Surgical History H/O resection of rectum History of cataract surgery History of partial colectomy S/P carotid endarterectomy Family History Family History Mother Family history non-contributory Sibling Lung cancer Social History Social History Smoking packs per day: 2 Smoking cigarettes per day: 40.0 Years smoked: 3 Smoking pack-years: 6.00 Smoking status: Former smoker Tobacco type: cigarettes Second hand tobacco smoke exposure: No Alcohol intake: never Drinks per week: 2 Substance use: never Substance use type: does not use Lack of Transportation: No Lack of Food: Never True Current Housing: I Have Housing Concerned About Future Housing: No Difficulty Paying Gas/Electric Bills: No Difficulty Paying for Meds: No Currently Unemployed: No Education: High School Diploma/GED Difficulty w/ Childcare or Family Care: No Gender identity (if verbalized by the patient): Male Spiritual care concerns: No Same Day Admit/Disch: Med Pre-admit Medications Home Medications Medication Instructions Recorded Confirmed Type alprazolam 0.5 mg tablet 0.5 mg PO HS 11/30/19 02/01/22 History aspirin 81 mg tablet 81 mg PO DAILY 11/30/19 02/01/22 History furosemide 40 mg tablet 40 mg PO DAILY 11/30/19 02/01/22 History losartan 25 mg tablet 12.5 mg PO DAILY 11/30/19 02/01/22 History metoprolol succinate 25 mg 50 mg PO BID 11/30/19 02/01/22 History tablet,extended release 24 hr potassium chloride 10 mEq 10 meq PO BID 11/30/19 02/01/22 History tablet,extended release(part/cryst) rivaroxaban 20 mg tablet (Xarelto) 20 mg PO HS 11/30/19 02/01/22 History sertraline 50 mg tablet 50 mg PO DAILY 11/30/19 02/01/22 History simvastatin 40 mg tablet 40 mg PO HS 11/30/19 02/01/22 History benzonatate 100 mg capsule 200 mg PO TID #30 caps 01/19/22 02/01/22 Rx gua
[2022-02-02 07:43] VITALS: BP 119/62; PULSE 97; RESP 16; TEMP 36.4; O2SAT 92
--- NOTE | 2022-02-02 11:20 | PC.NURSE ---
Patient and law writer went over discharge instructions with patient's daughter. Both voiced understanding. Appeals Coordinator specifically emphasized need for patient to keep her follow up appointment with PCP. Patient voiced understanding. Patient left unit in w/c, accompanied by law writer and her daughter. Patient left facility in privately owned vehicle.
--- NOTE | 2022-02-11 09:17 | PC.NURSE ---
Pt states she received and understood her discharge instructions. Pt states she can't find her bracelet. Room checked and not found.
== END 2022-02-02 11:20 | disposition home or self-care (01) ==
LOC: CHSED 10:57 → CHS2ND 15:22
PROVIDERS: Nurse Practitioner; Admitting Provider Internal Medicine; Emergency Provider Emergency Medicine; PCP Family Medicine; Visit Provider Internal Medicine
DX: R10.9 Unspecified abdominal pain (principal); N39.0 Urinary tract infection, site not specified; R11.2 Nausea with vomiting, unspecified; I10 Essential (primary) hypertension; I48.20 Chronic atrial fibrillation, unspecified; I65.29 Occlusion and stenosis of unspecified carotid artery; K43.5 Parastomal hernia without obstruction or gangrene; K21.9 Gastro-esophageal reflux disease without esophagitis; E78.5 Hyperlipidemia, unspecified; M19.90 Unspecified osteoarthritis, unspecified site; F41.9 Anxiety disorder, unspecified; F32.A Depression, unspecified; Z90.49 Acquired absence of other specified parts of digestive tract; Z93.3 Colostomy status; Z85.038 Personal history of other malignant neoplasm of large intestine; Z87.891 Personal history of nicotine dependence
CPT/HCPCS: 36415; 74177; 80053; 81001; 82271; 83605; 83690; 83735; 83986; 85025; 85027; 85610; 85730; 87086; 87088; 93005; 96361; 96365; 96366; 96368; 96374; 96375; 96376; 97161; 99285; A9270; G0378; J0696; J2270; J2405; J2765; J3480; J7030; Q9967

== ENCOUNTER 2022-02-04 10:11 | Outpatient (CLI) | payer MEDICARE, SELFPAY ==
[2022-02-04 10:32] LABS: Hematocrit 36.6 % (35.0-42.0); Hemoglobin 12.1 g/dL (11.7-13.8); Mean Corpuscular HGB Conc 33.1 g/dL (32.0-36.0); Mean Corpuscular Hemoglobin 30.5 pg (27.0-31.0); Mean Corpuscular Volume 92.2 fL (78.0-102.0); Mean Platelet Volume 10.2 fl (9.2-11.8); Platelet Count Result 175 K/mm3 (150-420); Red Blood Count 3.97 M/mm3 (4.20-5.40); Red Cell Distribution Width 14.3 % (11.6-14.4); White Blood Count 9.1 K/mm3 (4.8-10.8)
[2022-02-04 10:59] LABS: Anion Gap 7 mmol/L (8-16); Blood Urea Nitrogen 15 mg/dL (7-18); Calcium 8.4 mg/dL (8.5-10.1); Carbon Dioxide 32 mmol/L (21-32); Chloride 98 mmol/L (98-108); Estimated Glomerular Filt Rate 60; Glucose 135 mg/dL (70-99); Osmolality Calculated 286 mOsm/kg (285-295); Potassium 3.3 mmol/L (3.5-5.1); Sodium 137 mmol/L (136-145)
== END 2022-02-04 10:12 | disposition home or self-care (01) ==
LOC: CHSLAB 10:14
PROVIDERS: PCP Family Medicine; Visit Provider Internal Medicine Cardiovascular Disease
DX: C20 Malignant neoplasm of rectum (principal); Z79.899 Other long term (current) drug therapy
CPT/HCPCS: 36415; 80048; 85027

== ENCOUNTER 2022-05-04 09:43 | Outpatient (CLI) | payer MEDICARE, SELFPAY | END 2022-05-04 09:44 | disposition home or self-care (01) | LOC: CHSAUDIO 09:46 | PROVIDERS: PCP Family Medicine; Visit Provider Family Medicine | DX: H90.3 Sensorineural hearing loss, bilateral (principal) | CPT/HCPCS: 92557; 92567 ==

== ENCOUNTER 2022-05-06 08:48 | Outpatient (CLI) | payer MEDICARE, SELFPAY | END 2022-05-06 08:49 | disposition home or self-care (01) | LOC: CHSIMG 08:50 | PROVIDERS: PCP Family Medicine | DX: L97.811 Non-pressure chronic ulcer of other part of right lower leg limited to breakdown of skin (principal); I83.893 Varicose veins of bilateral lower extremities with other complications | CPT/HCPCS: 99199 ==

== ENCOUNTER 2022-06-16 13:51 | Inpatient (IN) | payer MEDICARE, SELFPAY ==
[2022-06-16] VITALS (24 sets, daily range): BP systolic 111–142; BP diastolic 69–94; PULSE 17–116; RESP 17–92; TEMP 36.2–36.4; O2SAT 74–100; BMI 39.3
--- NOTE | ~2022-06-16 | XR_ITS ---
Portable chest x-ray Comparison: 06/16/2022 Clinical History: CHF exacerbation Findings: Right-sided central venous line is unchanged. Moderate pulmonary edema pattern is present. Questionable underlying chronic interstitial disease. Cardiomediastinal silhouette is stable, statu s post aortic valve replacement. Bones and soft tissues are unremarkable. Impression: Probable moderate pulmonary edema pattern with possible underlying chronic interstitial disease. Stable support line. Reviewed, dictated and finalized at location . Impression: Probable moderate pulmonary edema pattern with possible underlying chronic inte rstitial disease. Stable support line.
--- NOTE | ~2022-06-16 | XR_ITS ---
EXAMINATION: XR chest 2V DATE: 06/16/2022 15:52 INDICATION: Acute shortness of breath. TECHNIQUE: Frontal and lateral views of the chest were obtained. COMPARISON: Chest single view 01/18/2022, chest CT 01/18/2022 FINDINGS: There are airspace opacities and interstitial opacities throughout the lungs bilaterally. T here are small pleural effusions. No pneumothorax. Cardiomegaly is noted. There are changes of aortic valve replacement. There is a right internal jugular port with tip in proximal right atrium. IMPRESSION: 1. Worsened diffuse lung disease, likely pulmonary edema and/or pneumonia superimposed on chronic int erstitial lung disease. 2. Small pleural effusions. 3. Cardiomegaly. Reviewed, dictated and finalized at location A. IMPRESSION: 1. Worsened diffuse lung disease, likely pulmonary edema and/or pneumonia super imposed on chronic interstitial lung disease. 2. Small pleural effusions. 3. Cardiomegaly.
--- NOTE | ~2022-06-16 | XR_ITS ---
Portable chest x-ray Comparison: 06/17/2022 Clinical History: Pulmonary edema Findings: Stable right-sided central venous line. Moderate pulmonary edema is present, with mild imp rovement from prior exam. No definite pleural effusion. Cardiomediastinal silhouette is stable. Bone s and soft tissues are unremarkable. Impression: Moderate pulmonary edema, mildly improved from prior exam. Stable support line. Reviewed, dictated and finalized at location . Impression: Moderate pulmonary edema, mildly improved from prior exam. Stable support line.
--- NOTE | 2022-06-16 14:10 | ED.SOB ---
HPI - SOB/Dyspnea General Chief Complaint: Shortness of Breath/Dyspnea Stated Complaint: SOB Time Seen by Provider: 06/16/22 14:09 Source: patient and RN notes reviewed Mode of arrival: ambulatory Limitations: no limitations History of Present Illness HPI Narrative: Patient states she has been short of breath for the last couple of days. It has been getting increasingly worse. She saw her meat packer 2 weeks ago and everything was fine. She has a history of atrial fibrillation and congestive heart failure. She has been having some bilateral lower extremity edema but she says she also has a history of lymphedema. She recently had a wound on her right leg and that has since been healed. She apparently was on oxygen at home but then was taken off the oxygen she does not remember my who. MD elicited complaint: shortness of breath Pertinent past history: congestive heart failure Onset (ago): day(s) (3) Context: occurred during exertion Timing: constant Severity: moderate Exacerbating factors: exertion Relieving factors: oxygen Treatment prior to arrival: none Related Data Home oxygen amount: none Home Medications Medication Instructions Recorded Confirmed alprazolam 0.5 mg tablet 0.5 mg PO HS 11/30/19 06/16/22 aspirin 81 mg tablet 81 mg PO DAILY 11/30/19 06/16/22 furosemide 40 mg tablet 40 mg PO DAILY 11/30/19 06/16/22 losartan 25 mg tablet 12.5 mg PO DAILY 11/30/19 06/16/22 metoprolol succinate 25 mg 50 mg PO BID 11/30/19 06/16/22 tablet,extended release 24 hr potassium chloride 10 mEq 10 meq PO BID 11/30/19 06/16/22 tablet,extended release(part/cryst) simvastatin 40 mg tablet 40 mg PO HS 11/30/19 06/16/22 Allergies Allergy/AdvReac Type Severity Reaction Status Date / Time phytonadione (vitamin K1) AdvReac Unknown Verified 06/16/22 14:00 [facility] Past Medical History Medical History Anxiety Arthritis Atrial fibrillation Carotid artery stenosis Colon cancer Congestive heart failure Depression Depression with anxiety GERD (gastroesophageal reflux disease) Hernia History of vaginal delivery x 2 HTN (hypertension) Hyperlipidemia Rectal cancer Surgical History Surgical History H/O resection of rectum History of cataract surgery History of partial colectomy S/P carotid endarterectomy Family History Family History Mother Family history non-contributory Sibling Lung cancer Social History Social History Smoking packs per day: 2 Smoking cigarettes per day: 40.0 Years smoked: 3 Smoking pack-years: 6.00 Smoking status: Former smoker Tobacco type: cigarettes Second hand tobacco smoke exposure: No Alcohol intake: never Drinks per week: 2 Substance use: never Substance use type: does not use Lack of Transportation: No Lack of Food: Never True Current Housing: I Have Housing Concerned About Future Housing: No Difficulty Paying Gas/Electric Bills: No Difficulty Paying for Meds: No Currently Unemployed: No Education: High School Diploma/GED Difficulty w/ Childcare or Family Care: No Living arrangements: alone Gender identity (if verbalized by the patient): Female Spiritual care concerns: No Exam Const: General: healthy appearing, no acute distress and alert Nutritional Appearance: well nourished Orientation/consciousness: patient oriented x3 Limitations: no limitations HENMT: Head: normal to inspection Ears: external ears normal Face/Nose/Sinus: Normal external nose present Face and sinus: normal facial exam Mouth: Yes moist mucous membranes Eyes: Conjunctivae: conjunctivae normal Pupils: Equal, round and reactive pupils present EOM: EOMs intact bilaterally Neck: Neck: normal visual inspection Chest: Chest palpation & inspection: nor
--- NOTE | 2022-06-16 15:08 | PC.NURSE ---
PT IS ON STRETCHER TALKING WITH FRIEND AT THIS TIME. PT HAS BEEN GIVEN A BLANKET AND REPOSITIONED WITHOUT DIFFICULTY. NAD NOTED. WILL CONTINUE TO MONITOR.
--- NOTE | 2022-06-16 15:48 | PC.NURSE ---
PT ASSISTED TO RR AND BACK. PT WAS INCONTINENT OF URINE. PERICARE WAS PERFORMED. PT IS AWAITING RETURN CALL FROM HOSPITALIST AT THIS TIME. WILL CONTINUE TO MONITOR.
[2022-06-16 15:57] LABS: INR 1.5; Partial Thromboplastin Time 35.9 SEC (23.90-30.70); Prothrombin Time 16.1 Seconds (9.64-11.0)
[2022-06-16] MEDS: FUROSEMIDE INJ 20 MG/2 ML VIAL (15:57)
[2022-06-16] MEDS: FUROSEMIDE INJ 40 MG/4 ML VIAL 60 MG IV PUSH ×2 (15:57→21:58)
--- NOTE | 2022-06-16 15:57 | PC.NURSE ---
[facility] IS DOWN, ORDER FOR 60MG LASIX WAS GIVEN ORDERED WITHOUT DIFFICULTY, NO WAY TO SCAN PT OR MEDICATION.
[2022-06-16 16:05] LABS: Basophils Absolute Auto 0.04 K/mm3 (0.00-0.10); Basophils Percent Auto 0.4 % (0.0-1.0); Eosinophils Absolute Auto 0.18 K/mm3 (0.02-0.50); Eosinophils Percent Auto 1.9 % (1.0-6.0); Hematocrit 42.3 % (35.0-42.0); Hemoglobin 13.5 g/dL (11.7-13.8); Immature Granulocyte Absolute 0.04 K/mm3 (0.00-0.00); Immature Granulocyte Percent A 0.4 % (0.0-0.0); Lymphocytes Percent Auto 5.4 % (18.0-42.0); Mean Corpuscular HGB Conc 31.9 g/dL (32.0-36.0); Mean Corpuscular Hemoglobin 29.5 pg (27.0-31.0); Mean Corpuscular Volume 92.4 fL (78.0-102.0); Mean Platelet Volume 10.8 fl (9.2-11.8); Monocytes Absolute Auto 0.87 K/mm3 (0.10-0.90); Monocytes Percent Auto 9.4 % (2.0-11.0); Neutrophils Absolute Auto 7.7 K/mm3 (1.7-7.2); Neutrophils Percent Auto 82.5 % (50.0-70.0); Platelet Count Result 196 K/mm3 (150-420); Red Blood Count 4.58 M/mm3 (4.20-5.40); Red Cell Distribution Width 14.9 % (11.6-14.4); White Blood Count 9.3 K/mm3 (4.8-10.8)
[2022-06-16 16:07] LABS: Anion Gap 7 mmol/L (8-16); Blood Urea Nitrogen 15 mg/dL (7-18); Calcium 9.2 mg/dL (8.5-10.1); Carbon Dioxide 32 mmol/L (21-32); Chloride 102 mmol/L (98-108); Estimated CRCL calculation 47 ml/min; Estimated Glomerular Filt Rate > 60; Glucose 133 mg/dL (70-99); Osmolality Calculated 294 mOsm/kg (285-295); Sodium 141 mmol/L (136-145)
[2022-06-16 16:08] LABS: Alanine Aminotransferase 17 U/L (14-59); Albumin Level 3.4 g/dL (3.4-5.0); Aspartate Amino Transferase 20 U/L (15-37); Bilirubin,Total 1.7 mg/dL (0.00-1.00); Magnesium 1.7 mg/dL (1.8-2.4); NT Pro B Type Natriuretic Pept 3122 pg/mL (0-450); Troponin I 6.4 ng/L (0.00-60.4)
[2022-06-16 16:09] LABS: Alkaline Phosphatase 121 U/L (46-116)
--- NOTE | 2022-06-16 16:16 | PC.NURSE ---
PT IS TO BE ADMITTED TO ROOM 210, SHE IS AWARE OF PLAN OF CARE. NAD NOTED. PT IS SLEEPING IN EXAM ROOM AT THIS TIME.
--- NOTE | 2022-06-16 16:45 | ADMGEN ---
This patient, Salima Galaviz, was admitted to 2nd Floor Room 210-1. Patient/family oriented to hospital policies and general routines including ID bracelet, bed and alarms, visiting hours, pain management, procedures, bathroom and other care routines, personal items, smoking policy, room service/diet, and visiting hours. Information on how to activate the Rapid Response Team has been discussed. Patient/Family are encouraged to report perceived risks to care and to ask questions if they do not understand what they are told or what they should do.
[2022-06-16] MEDS: METOPROLOL SUCCINATE EXT REL 50 MG TABCR PO (18:44)
[2022-06-16] MEDS: MAGNESIUM SULF 2 GM/WATER 50ML 2 GM/50 ML BAG IVPB (18:45)
[2022-06-16] MEDS: BUDESONIDE/FORMOTEROL (*SP) 160-4.5 MCG 6 GM INH 2 PUFF INHALATION (21:57)
[2022-06-16] MEDS: RIVAROXABAN 10 MG TABLET 20 MG PO (21:58)
[2022-06-16] MEDS: ALPRAZolam (*CRX) 0.5 MG TABLET PO (21:58)
[2022-06-16] MEDS: SIMVASTATIN 10 MG TABLET 40 MG PO (21:59)
[2022-06-17] VITALS (10 sets, daily range): BP systolic 84–117; BP diastolic 52–79; PULSE 76–92; RESP 16–18; TEMP 36.2–36.6; O2SAT 91–96
[2022-06-17 05:17] LABS: Basophils Absolute Auto 0.03 K/mm3 (0.00-0.10); Basophils Percent Auto 0.4 % (0.0-1.0); Eosinophils Absolute Auto 0.23 K/mm3 (0.02-0.50); Eosinophils Percent Auto 2.8 % (1.0-6.0); Hematocrit 36.3 % (35.0-42.0); Hemoglobin 11.6 g/dL (11.7-13.8); Immature Granulocyte Absolute 0.03 K/mm3 (0.00-0.00); Immature Granulocyte Percent A 0.4 % (0.0-0.0); Lymphocytes Percent Auto 8.5 % (18.0-42.0); Mean Corpuscular Hemoglobin 29.7 pg (27.0-31.0); Mean Corpuscular Volume 93.1 fL (78.0-102.0); Mean Platelet Volume 10.1 fl (9.2-11.8); Monocytes Absolute Auto 1.01 K/mm3 (0.10-0.90); Monocytes Percent Auto 12.3 % (2.0-11.0); Neutrophils Absolute Auto 6.2 K/mm3 (1.7-7.2); Neutrophils Percent Auto 75.6 % (50.0-70.0); Platelet Count Result 179 K/mm3 (150-420); White Blood Count 8.2 K/mm3 (4.8-10.8)
[2022-06-17 05:30] LABS: Magnesium 1.9 mg/dL (1.8-2.4)
[2022-06-17 05:46] LABS: Alanine Aminotransferase 10 U/L (14-59); Albumin Level 2.7 g/dL (3.4-5.0); Alkaline Phosphatase 99 U/L (46-116); Anion Gap 5 mmol/L (8-16); Aspartate Amino Transferase 19 U/L (15-37); Bilirubin,Total 1.3 mg/dL (0.00-1.00); Blood Urea Nitrogen 16 mg/dL (7-18); Calcium 8.5 mg/dL (8.5-10.1); Carbon Dioxide 34 mmol/L (21-32); Chloride 103 mmol/L (98-108); Estimated CRCL calculation 49 ml/min; Estimated Glomerular Filt Rate > 60; Glucose 102 mg/dL (70-99); Osmolality Calculated 295 mOsm/kg (285-295); Potassium 3.6 mmol/L (3.5-5.1); Sodium 142 mmol/L (136-145); Total Protein 6.6 g/dL (6.4-8.2)
[2022-06-17] MEDS: BUDESONIDE/FORMOTEROL (*SP) 160-4.5 MCG 6 GM INH 2 PUFF INHALATION ×2 (05:49→10:13)
--- NOTE | 2022-06-17 10:03 | PM.IMHP ---
H&P: HPI History of Present Illness Date/Time: 06/17/22 10:03 Chief Complaint: Shortness of breath and dyspnea Narrative: This is a 82-year-old female who presented to emergency department with complaints of shortness of breath and dyspnea. Patient has a past medical history of anxiety, arthritis, AFib, coronary artery stenosis, colon cancer, congestive heart failure, depression and anxiety, GERD hypertension, hyperlipidemia and rectal cancer. According to patient approximately 2 days ago she started feeling tightness in her chest area she also developed worsening lower extremity edema. Patient notes that she was instructed by her primary care physician to take an additional Lasix p.o. when she noticed any lower extremity edema. She did not take her additional Lasix when she noticed worsening lower extremity edema. she also noticed that she noticed more shortness of breath on exertion. WBCs 9.3, hemoglobin 13.5, hematocrit 42.3, platelets 196, sodium 41, potassium 4.0, BUN 15, creatinine 0.8 glucose 133, troponin 6.4, BNP 3122 chest x-ray indicates worsening diffuse lung disease likely pulmonary edema superimposed on chronic interstitial lung disease. Patient's condition has improved. The patient denies , CP, palpitation, extremity numbness, lightheadedness, dizziness, constipation, diarrhea, chills, or fever. Review of Systems Review of Systems: All systems reviewed & are unremarkable except as noted in HPI and below PMFSH Past Medical History Medical History Anxiety Arthritis Atrial fibrillation Carotid artery stenosis Colon cancer Congestive heart failure Depression Depression with anxiety GERD (gastroesophageal reflux disease) Hernia History of vaginal delivery x 2 HTN (hypertension) Hyperlipidemia Rectal cancer Surgical History Surgical History H/O resection of rectum History of cataract surgery History of partial colectomy S/P carotid endarterectomy Family History Family History Mother Family history non-contributory Sibling Lung cancer Social History Social History Smoking packs per day: 2 Smoking cigarettes per day: 40.0 Years smoked: 3 Smoking pack-years: 6.00 Smoking status: Former smoker Tobacco type: cigarettes Second hand tobacco smoke exposure: No Smoking end date: 02/16/80 Alcohol intake: former Drinks per week: 2 Substance use: never Substance use type: does not use Lack of Transportation: No Lack of Food: Never True Current Housing: I Have Housing Concerned About Future Housing: No Difficulty Paying Gas/Electric Bills: No Difficulty Paying for Meds: No Currently Unemployed: No Education: Decline to Answer Difficulty w/ Childcare or Family Care: No Living arrangements: alone Gender identity (if verbalized by the patient): Female Spiritual care concerns: No Meds Home Medications and Allergies Home Medications Medication Instructions Recorded Confirmed Type alprazolam 0.5 mg tablet 0.5 mg PO TID PRN Anxiety 11/30/19 06/17/22 History aspirin 81 mg tablet 81 mg PO DAILY 11/30/19 06/16/22 History furosemide 40 mg tablet 40 mg PO DAILY 11/30/19 06/16/22 History losartan 25 mg tablet 12.5 mg PO DAILY 11/30/19 06/16/22 History metoprolol succinate 25 mg 50 mg PO BID 11/30/19 06/16/22 History tablet,extended release 24 hr potassium chloride 10 mEq 10 meq PO BID 11/30/19 06/16/22 History tablet,extended release(part/cryst) simvastatin 40 mg tablet 40 mg PO HS 11/30/19 06/16/22 History albuterol sulfate 90 mcg/actuation 2 puff inhalation QID PRN 01/20/22 06/16/22 Rx aerosol inhaler shortness of breath or wheezing #6.7 grams budesonide-formoterol HFA 80 1 inh inhalation ONCE #10.2 grams 01/20/22 06/16/22 Rx mcg-4.5
[2022-06-17] MEDS: SERTRALINE HCL 50 MG TABLET PO (10:12)
[2022-06-17] MEDS: POTASSIUM CHLORIDE 20 MEQ TABLET PO (10:13)
[2022-06-17] MEDS: SODIUM CHLORIDE 0.9% IV 1,000 ML 999 ML IV CONT (11:11)
[2022-06-17] MEDS: guaiFENesin/DEXTROMETHORPHAN 5 ML UDC PO (16:04)
[2022-06-17] MEDS: RIVAROXABAN 10 MG TABLET 20 MG PO (20:29)
[2022-06-17] MEDS: ALPRAZolam (*CRX) 0.5 MG TABLET PO (20:29)
[2022-06-17] MEDS: SIMVASTATIN 10 MG TABLET 40 MG PO (20:29)
[2022-06-18] VITALS (11 sets, daily range): BP systolic 100–110; BP diastolic 58–70; PULSE 85–98; RESP 14–18; TEMP 35.6–36.4; O2SAT 90–98
[2022-06-18 05:07] LABS: Hematocrit 37.1 % (35.0-42.0); Hemoglobin 11.8 g/dL (11.7-13.8); Mean Corpuscular HGB Conc 31.8 g/dL (32.0-36.0); Mean Corpuscular Hemoglobin 29.5 pg (27.0-31.0); Mean Corpuscular Volume 92.8 fL (78.0-102.0); Mean Platelet Volume 10.1 fl (9.2-11.8); Platelet Count Result 168 K/mm3 (150-420); White Blood Count 8.2 K/mm3 (4.8-10.8)
[2022-06-18 05:22] LABS: Alanine Aminotransferase 15 U/L (14-59); Albumin Level 2.8 g/dL (3.4-5.0); Alkaline Phosphatase 107 U/L (46-116); Anion Gap 7 mmol/L (8-16); Aspartate Amino Transferase 18 U/L (15-37); Bilirubin,Total 1.1 mg/dL (0.00-1.00); Blood Urea Nitrogen 17 mg/dL (7-18); Calcium 8.2 mg/dL (8.5-10.1); Carbon Dioxide 31 mmol/L (21-32); Chloride 102 mmol/L (98-108); Estimated CRCL calculation 51 ml/min; Estimated Glomerular Filt Rate > 60; Glucose 111 mg/dL (70-99); Osmolality Calculated 292 mOsm/kg (285-295); Potassium 3.6 mmol/L (3.5-5.1); Sodium 140 mmol/L (136-145)
[2022-06-18] MEDS: BUDESONIDE/FORMOTEROL (*SP) 160-4.5 MCG 6 GM INH 2 PUFF INHALATION ×2 (05:58→17:52)
[2022-06-18] MEDS: SERTRALINE HCL 50 MG TABLET PO (08:36)
[2022-06-18] MEDS: ASPIRIN 81 MG CHEWABLE TABLET PO (08:36)
[2022-06-18] MEDS: FUROSEMIDE 40 MG TABLET PO (08:36)
[2022-06-18] MEDS: METOPROLOL SUCCINATE EXT REL 50 MG TABCR PO ×2 (08:37→17:52)
[2022-06-18] MEDS: POTASSIUM CHLORIDE 20 MEQ TABLET PO (08:37)
--- NOTE | 2022-06-18 09:21 | PM.DS ---
DS: Admitting Diagnosis Discharge Date 06/18/2022 Admitting Diagnosis chf exacerbation DS: Discharge Diagnosis Discharge Diagnosis (1) Congestive heart failure: Qualifiers: Heart failure chronicity: acute on chronic Heart failure type: unspecified Qualified Code(s): I50.9 - Heart failure, unspecified Code(s): I50.9 - Heart failure, unspecified Status: Acute Assessment and Plan: [id number] chest x-ray indicate pulmonary edema patient receiving Lasix 60 mg b.i.d. will decrease to 40 mg p.o. due to possible dehydration and hypotension chest x-ray in a.m. daily weights (2) Atrial fibrillation: Code(s): I48.91 - Unspecified atrial fibrillation Status: Acute Assessment and Plan: controlled continue home medication (3) HTN (hypertension): Code(s): I10 - Essential (primary) hypertension Status: Acute Assessment and Plan: currently hypotensive will hold medication vital signs as ordered (4) History of cataract surgery: Code(s): Z98.49 - Cataract extraction status, unspecified eye Status: Acute (5) Hyperlipidemia: Code(s): E78.5 - Hyperlipidemia, unspecified Status: Acute Assessment and Plan: continue home medication (6) GERD (gastroesophageal reflux disease): Code(s): K21.9 - Gastro-esophageal reflux disease without esophagitis Status: Acute Assessment and Plan: continue home medication (7) Arthritis: Code(s): M19.90 - Unspecified osteoarthritis, unspecified site Status: Acute Assessment and Plan: continue home medication DS: Summary Hospital Course Reason for hospitalization: shortness of breath and dyspnea Hospital Course: ?This is a 82-year-old female who presented to emergency department with complaints of shortness of breath and dyspnea.? Patient has a past medical history of anxiety, arthritis, AFib,? coronary artery stenosis, colon cancer, congestive heart failure, depression and anxiety, GERD hypertension, hyperlipidemia and rectal cancer.? According to patient approximately 2 days ago she started feeling? tightness in her chest area she also developed worsening lower extremity edema.? Patient notes that she was instructed by her primary care physician to take? an additional? Lasix p.o. when she noticed any lower extremity edema.? She did not take her additional? Lasix when she noticed? worsening lower extremity edema.? she also noticed that she noticed more shortness of breath on exertion. today patient condition has improved she will discharge home and is instructed to take her 20 of Lasix if she experienced any lower extremity swelling, shortness of breath or weight gain as instructed by her actor understudy. She will also contact her actor understudy for repeat office visit. An oxygen home to evaluate is pending for this patient. The patient denies SOB, CP, palpitation, extremity numbness, lightheadedness, dizziness, constipation, diarrhea, chills, or fever. Time Spent with Patient Time attestation: Total time spent providing and/or coordinating discharge services: Exam Narrative: GENERAL: This is a well-nourished, well-developed patient, in no apparent distress. HEAD: normocephalic, atraumatic. EYES: PERRL. Sclera clear/white. Vision is grossly intact. EARS: External ears normal, auditory canals clear and without drainage, TMs normal without perforation. Hearing grossly intact. NOSE: External nose normal with no obvious nasal discharge, nares without redness, no rhinorrhea. THROAT: Mucous membranes moist, posterior pharynx clear. NECK: Neck supple, non-tender without lymphadenopathy, masses or thyromegaly. CARDIOVASCULAR: Regular rate and rhythm without murmurs, gallops, or rubs. RESPIRATORY: diminished. GASTROINTESTINAL: Abdomen soft, non-tender, nondistended. Bowel sounds are active. No hepato-splenomegaly, or palpable masses. No guarding. SKIN:
--- NOTE | 2022-06-18 09:56 | PCRCNOTE ---
Pt resting on room air at 78% heart rate 115. Placed patient on 1, 2, 3L no improvement. Increased to 4L 86% heart rate 105. Increased to 5L 89-90% heart rate 106.
[2022-06-18] MEDS: methylPREDNISolone SOD SUCC 40 MG VIAL IV PUSH ×2 (11:33→20:43)
[2022-06-18] MEDS: RIVAROXABAN 10 MG TABLET 20 MG PO (20:41)
[2022-06-18] MEDS: SIMVASTATIN 10 MG TABLET 40 MG PO (20:42)
[2022-06-18] MEDS: ALPRAZolam (*CRX) 0.5 MG TABLET PO (20:42)
[2022-06-19] VITALS (11 sets, daily range): BP systolic 119–123; BP diastolic 76–87; PULSE 86–120; RESP 18–20; TEMP 36.4–36.5; O2SAT 85–96
[2022-06-19] MEDS: BUDESONIDE/FORMOTEROL (*SP) 160-4.5 MCG 6 GM INH 2 PUFF INHALATION (06:18)
[2022-06-19] MEDS: ASPIRIN 81 MG CHEWABLE TABLET PO (07:58)
[2022-06-19] MEDS: POTASSIUM CHLORIDE 20 MEQ TABLET PO (07:58)
[2022-06-19] MEDS: METOPROLOL SUCCINATE EXT REL 50 MG TABCR PO (09:20)
[2022-06-19] MEDS: SERTRALINE HCL 50 MG TABLET PO (09:20)
[2022-06-19] MEDS: FUROSEMIDE 40 MG TABLET PO (09:20)
[2022-06-19] MEDS: methylPREDNISolone SOD SUCC 40 MG VIAL IV PUSH (09:20)
--- NOTE | 2022-06-19 09:49 | PM.IMHP ---
H&P: HPI History of Present Illness Date/Time: 06/19/22 09:49 Chief Complaint: shortness of breath dyspnea Narrative: ?This is a 82-year-old female who presented to emergency department with complaints of shortness of breath and dyspnea.? Patient has a past medical history of anxiety, arthritis, AFib,? coronary artery stenosis, colon cancer, congestive heart failure, depression and anxiety, GERD hypertension, hyperlipidemia and rectal cancer.? According to patient approximately 2 days ago she started feeling? tightness in her chest area she also developed worsening lower extremity edema.? Patient notes that she was instructed by her primary care physician to take? an additional? Lasix p.o. when she noticed any lower extremity edema.? She did not take her additional? Lasix when she noticed? worsening lower extremity edema.? she also noticed that she noticed more shortness of breath on exertion. today? patient condition has improved she will discharge home and is instructed to take her 20 of Lasix if she experienced any lower extremity swelling, shortness of breath or weight gain as instructed by her independent trader.? She will also contact her independent trader for repeat office visit.? An? oxygen home to evaluate is pending for this patient. The patient denies SOB, CP, palpitation, extremity numbness, lightheadedness, dizziness, constipation, diarrhea, chills, or fever. - patient's home to evaluate indicates that she needs 1 L of oxygen at rest and 2 L with activities - attempted to call patient's independent trader Dr. Fontenot awaiting call back Review of Systems Review of Systems: All systems reviewed & are unremarkable except as noted in HPI and below PMFSH Past Medical History Medical History Anxiety Arthritis Atrial fibrillation Carotid artery stenosis Colon cancer Congestive heart failure Depression Depression with anxiety GERD (gastroesophageal reflux disease) Hernia History of vaginal delivery x 2 HTN (hypertension) Hyperlipidemia Rectal cancer Surgical History Surgical History H/O resection of rectum History of cataract surgery History of partial colectomy S/P carotid endarterectomy Family History Family History Mother Family history non-contributory Sibling Lung cancer Social History Social History Smoking packs per day: 2 Smoking cigarettes per day: 40.0 Years smoked: 3 Smoking pack-years: 6.00 Smoking status: Former smoker Tobacco type: cigarettes Second hand tobacco smoke exposure: No Smoking end date: 02/16/80 Alcohol intake: former Drinks per week: 2 Substance use: never Substance use type: does not use Lack of Transportation: No Lack of Food: Never True Current Housing: I Have Housing Concerned About Future Housing: No Difficulty Paying Gas/Electric Bills: No Difficulty Paying for Meds: No Currently Unemployed: No Education: Decline to Answer Difficulty w/ Childcare or Family Care: No Living arrangements: alone Gender identity (if verbalized by the patient): Female Spiritual care concerns: No Meds Home Medications and Allergies Home Medications Medication Instructions Recorded Confirmed Type alprazolam 0.5 mg tablet 0.5 mg PO TID PRN Anxiety 11/30/19 06/17/22 History aspirin 81 mg tablet 81 mg PO DAILY 11/30/19 06/16/22 History furosemide 40 mg tablet 40 mg PO DAILY 11/30/19 06/16/22 History losartan 25 mg tablet 12.5 mg PO DAILY 11/30/19 06/16/22 History metoprolol succinate 25 mg 50 mg PO BID 11/30/19 06/16/22 History tablet,extended release 24 hr potassium chloride 10 mEq 10 meq PO BID 11/30/19 06/16/22 History tablet,extended release(part/cryst) simvastatin 40 mg tablet 40 mg PO HS 11/30/19 06/16/22 History albuterol sulfate 90 mcg/ac
--- NOTE | 2022-06-19 10:28 | HOMEO2EVAL ---
Evaluation was performed at [facility] Home Oxygen Evaluation RC: Home Oxygen (O2) Evaluation Start: 06/18/22 08:30 Freq: ONCE Status: Active Protocol: RPE Activity Type Activity Date Activity User E-sign Co-sign Detail Recorded Client Recorded Date Recorded By Document 06/19/22 09:05 KAB [id number] 06/19/22 10:21 KAB Document 06/19/22 09:27 KAB [id number] 06/19/22 10:21 KAB Document 06/19/22 09:30 KAB [id number] 06/19/22 10:21 KAB Document 06/19/22 09:35 KAB [id number] 06/19/22 10:21 KAB Document 06/19/22 09:37 KAB [id number] 06/19/22 10:23 KAB Document 06/19/22 09:41 KAB [id number] 06/19/22 10:25 KAB Document 06/19/22 09:45 KAB [id number] 06/19/22 10:27 KAB 06/19/22 06/19/22 06/19/22 09:05 09:27 09:30 Home O2 Evaluation [Oxygen] -Test Phase Resting Resting -Oxygen Delivery Nasal Cannula Room Air Nasal Cannula -Oxygen Flow Rate (L/min) 1 1 [Pulse Oximetry] -Pulse Oximetry (90-100 %) 96 87 L 94 [Pulse Rate] -Pulse Rate (60-100 beats/min) 86 107 H 95 [Evaluation] -Activity Tolerance -Rating of Perceived Dyspnea (PD) [Exercise] -Ambulation Distance (feet) -Ambulation Distance (meters) [Comments] -Home Oxygen Evaluation Comments starting Pt. placed back Starting walk. evaluation. on 1L. SPo2 Patient placed increased to 94 on room air. [Charges] -Treatment Charges O2 Evaluation - Inpatient 06/19/22 06/19/22 06/19/22 09:35 09:37 09:41 Home O2 Evaluation [Oxygen] -Test Phase Exercise Exercise Exercise -Oxygen Delivery Nasal Cannula Nasal Cannula Nasal Cannula -Oxygen Flow Rate (L/min) 1 2 3 [Pulse Oximetry] -Pulse Oximetry (90-100 %) 87 L 85 L 91 [Pulse Rate] -Pulse Rate (60-100 beats/min) 107 H 111 H 111 H [Evaluation] -Activity Tolerance -Rating of Perceived Dyspnea (PD) +2 Mild, Some +2 Mild, Some +2 Mild, Some Difficulty, Difficulty, Difficulty, Noticeable to Noticeable to Noticeable to the Observer the Observer the Observer [Exercise] -Ambulation Distance (feet) 35 10 20 -Ambulation Distance (meters) 10.66 3.04 6.09 [Comments] -Home Oxygen Evaluation Comments Patient walked Patient walked Pt walked about about 35 feet. about another 20 feet back Spo2 dropped 10 feet and to room. Spo2 to 87. Placed dropped to 85. 91 on 3L O2. Patient on Place on 2liters. Pt. 3Liters. Unable unable to stand to stand long long enough to enough for full get to full recovery but recovery. Spo2 spo2 89 when 89 when walked started. resumed. [Charges] -Treatment Charges 06/19/22 09:45 Home O2 Evaluation [Oxygen] -Test Phase Resting -Oxygen Delivery Nasal Cannula -Oxygen Flow Rate (L/min) 1 [Pulse Oximetry] -Pulse Oximetry (90-100 %) 94 [Pulse Rate] -Pulse Rate (60-100 beats/min) 120 H [Evaluation] -Activity Tolerance Good -Rating of Perceived Dyspnea (PD) [Exercise] -Ambulation Distance (feet) -Ambulation Distance (meters) [Comments] -Home Oxygen Evaluation Comments Patient needs 1liter of O2 while resting and 3L of O2 while walking. Patient walked about 65 feet all together. Left with patient 94 on 1 liter while resting in chair. [Charges] -Treatment Charges
--- NOTE | 2022-06-19 14:00 | PC.NURSE ---
Discharge instructions given written and verbally with patient and daughter explaining meds, diet, activity, s/s and follow ups. Pt and daughter both verbalize understanding. Pt dressed and belongings packed.
--- NOTE | 2022-06-19 14:15 | PC.NURSE ---
Pt discharged to home per wc with daughter, belongings and wearing O2 as ordered.
[2022-06-19] MEDS: HEPARIN SODIUM LOCK FLUSH 500 UNITS/5 ML SYRINGE (14:30)
--- NOTE | 2022-06-22 11:37 | PC.NURSE ---
Pt states she received and understood her discharge instructions. She also states the care was very good, better than I thought it would be .
== END 2022-06-19 14:15 | disposition home or self-care (01) | DRG 292 ==
LOC: CHSED 15:31 → CHS2ND 16:21
PROVIDERS: Nurse Practitioner; Nurse Practitioner Adult Health; Admitting Provider Internal Medicine; Emergency Provider Emergency Medicine; PCP Family Medicine; Visit Provider Internal Medicine
DX: I11.0 Hypertensive heart disease with heart failure (principal); I48.20 Chronic atrial fibrillation, unspecified; I50.9 Heart failure, unspecified; E78.5 Hyperlipidemia, unspecified; K21.9 Gastro-esophageal reflux disease without esophagitis; M19.90 Unspecified osteoarthritis, unspecified site; F41.9 Anxiety disorder, unspecified; Z85.038 Personal history of other malignant neoplasm of large intestine; Z85.048 Personal history of other malignant neoplasm of rectum, rectosigmoid junction, and anus
CPT/HCPCS: 36415; 71045; 71046; 80053; 83735; 83880; 84484; 85025; 85027; 85610; 85730; 94618; 96361; 96365; 96375; 96376; 99285; A9270; G0378; J1940; J2920; J3475; J7030

== ENCOUNTER 2022-06-30 14:52 | Outpatient (CLI) | payer MEDICARE, SELFPAY ==
[2022-06-30 15:21] LABS: Hematocrit 36.9 % (35.0-42.0); Hemoglobin 11.6 g/dL (11.7-13.8); Mean Corpuscular HGB Conc 31.4 g/dL (32.0-36.0); Mean Corpuscular Hemoglobin 29.1 pg (27.0-31.0); Mean Corpuscular Volume 92.5 fL (78.0-102.0); Mean Platelet Volume 9.6 fl (9.2-11.8); Platelet Count Result 180 K/mm3 (150-420); Red Blood Count 3.99 M/mm3 (4.20-5.40); Red Cell Distribution Width 14.7 % (11.6-14.4)
[2022-06-30 16:17] LABS: Alanine Aminotransferase 32 U/L (14-59); Albumin Level 3.3 g/dL (3.4-5.0); Alkaline Phosphatase 104 U/L (46-116); Anion Gap 5 mmol/L (8-16); Aspartate Amino Transferase 28 U/L (15-37); Bilirubin,Total 0.8 mg/dL (0.00-1.00); Blood Urea Nitrogen 24 mg/dL (7-18); Calcium 8.5 mg/dL (8.5-10.1); Carbon Dioxide 36 mmol/L (21-32); Chloride 100 mmol/L (98-108); Estimated Glomerular Filt Rate > 60; Glucose 97 mg/dL (70-99); NT Pro B Type Natriuretic Pept 2656 pg/mL (0-450); Osmolality Calculated 296 mOsm/kg (285-295); Potassium 3.4 mmol/L (3.5-5.1); Sodium 141 mmol/L (136-145); Total Protein 6.8 g/dL (6.4-8.2)
== END 2022-06-30 14:53 | disposition home or self-care (01) ==
LOC: CHSLAB 14:55
PROVIDERS: PCP Family Medicine; Visit Provider Family Medicine
DX: I50.9 Heart failure, unspecified (principal)
CPT/HCPCS: 36415; 80053; 83880; 85027

== ENCOUNTER 2023-05-24 07:36 | Emergency (ER) | payer MEDICARE, SELFPAY ==
--- NOTE | ~2023-05-24 | CT_ITS ---
EXAMINATION: CT brain wo con DATE: 05/24/2023 08:11 INDICATION: Fall. TECHNIQUE: Computed tomography (CT) of the head was performed without intravenous contrast. The mA wa s adjusted according to patient size. Iterative reconstruction technique was employed. The dose-lengt h product was 605.33 mGy-cm. COMPARISON: None. FINDINGS: There are scattered areas of low attenuation in the cerebral white matter. There is no intr acranial hemorrhage, acute infarction, or abnormal intracranial mass lesion. The ventricles are tila l in size. There are likely changes of left ocular lens replacement surgery. There is mucosal thicken ing in the paranasal sinuses. The mastoid air cells are normal. There are calcified masses in the sca lp, likely old hematomas and/or sebaceous cysts. IMPRESSION: 1. Moderate nonspecific cerebral white matter disease, which likely represents chronic small vessel i schemic disease. Reviewed, dictated and finalized at location A. IMPRESSION: 1. Moderate nonspecific cerebral white matter disease, which likely represents chronic small vessel ischemic disease.
--- NOTE | ~2023-05-24 | CT_ITS ---
EXAMINATION: CT cervical spine wo con DATE: 05/24/2023 08:11 INDICATION: Fall. TECHNIQUE: Computed tomography (CT) of the cervical spine was performed without intravenous contrast. Automated exposure control and iterative reconstruction technique were employed. The dose-length pro duct was 360.94 mGy-cm. COMPARISON: None FINDINGS: There are bilateral pleural effusions, right worse than left. There is kyphosis of cervical spine. Vertebral body heights are normal. There is mildly decreased disc height at C3-C4, moderately decreased disc height at C4-C5, and severely decreased disc height at C5-C6 and C6-C7. The following disc levels are specifically discussed: C2-C3: There is mild left uncovertebral joint osteoarthritis. There is moderate right and severe left facet joint osteoarthritis. There is mild left neural foraminal stenosis. There is no central canal stenosis. C3-C4: There is moderate right and severe left uncovertebral joint osteoarthritis. There is severe bi lateral facet joint osteoarthritis. There is mild right and moderate left neural foraminal stenosis. There is mild central canal stenosis. C4-C5: There is severe bilateral uncovertebral joint osteoarthritis. There is severe bilateral facet joint osteoarthritis. There is mild right and moderate left neural foraminal stenosis. There is mild central canal stenosis. C5-C6: There is severe bilateral uncovertebral joint osteoarthritis. There is severe bilateral facet joint osteoarthritis. There is mild right and moderate left neural foraminal stenosis. There is mild central canal stenosis. C6-C7: There is severe bilateral uncovertebral joint osteoarthritis. There is severe right and modera te left facet joint osteoarthritis. There is mild bilateral neural foraminal stenosis. There is mild central canal stenosis. C7-T1: There is no uncovertebral joint osteoarthritis. There is severe bilateral facet joint osteoart hritis. There is mild bilateral neural foraminal stenosis. There is no central canal stenosis. IMPRESSION: 1. No fracture. 2. Severe cervical spondylosis. 3. Bilateral pleural effusions. Reviewed, dictated and finalized at location A.
[2023-05-24 07:36] VITALS: BP 108/82; PULSE 96; RESP 17; TEMP 36.4; O2SAT 95
--- NOTE | 2023-05-24 07:40 | ED.FALL ---
HPI - Fall General Chief Complaint: Fall Stated Complaint: fall, skin tear. Time Seen by Provider: 05/24/23 07:39 Source: patient Mode of arrival: ambulatory Limitations: no limitations History of Present Illness HPI Narrative: Patient is an 83-year-old female with a mechanical fall prior to arrival. She fell at home on a rug and sustained a right lower extremity skin tear. No definite head or neck injury. She is on a blood thinner. MD complaint: fall Onset (ago): minute(s) (30) Fall from: standing Fall witnessed: no Place fall occurred: home Loss of consciousness: none Prolonged down time: no Symptoms prior to fall: none Context: tripped/slipped Location of injury: other ( Right lower extremity) Location of injury - extremities: Right: lower leg Severity: mild Severity scale (1-10): 2 Quality: aching Associated symptoms (after fall): denies Related Data Home Medications Medication Instructions Recorded Confirmed alprazolam 0.5 mg tablet 0.5 mg PO TID PRN Anxiety 11/30/19 12/02/22 aspirin 81 mg tablet 81 mg PO DAILY 11/30/19 12/02/22 losartan 25 mg tablet 12.5 mg PO DAILY 11/30/19 12/02/22 metoprolol succinate 25 mg 50 mg PO BID 11/30/19 12/02/22 tablet,extended release 24 hr simvastatin 40 mg tablet 40 mg PO HS 11/30/19 12/02/22 furosemide 40 mg tablet 40 mg PO BID 09/01/22 12/02/22 potassium chloride 10 mEq 20 meq PO BID 09/01/22 12/02/22 tablet,extended release(part/cryst) spironolactone 25 mg tablet 25 mg PO DAILY 09/01/22 12/02/22 oxygen-air delivery systems 12/02/22 12/02/22 Allergies Allergy/AdvReac Type Severity Reaction Status Date / Time phytonadione (vitamin K1) AdvReac Unknown Verified 05/24/23 07:44 Review of Systems Review of Systems: All systems reviewed & are unremarkable except as noted in HPI and below Constitutional: Constitutional: Reports no additional constitutional complaints Eyes: Eyes: Reports no additional eye complaints ENT: Reports system reviewed and no additional complaints, except as documented Cardiovascular: Cardiovascular: Reports no additional cardiovascular complaints Respiratory: Respiratory: Reports no additional respiratory complaints Gastrointestinal: Gastrointestinal: Reports no additional gastrointestinal complaints Genitourinary: Genitourinary: Reports no additional female genitourinary complaints Musculoskeletal: Musculoskeletal: Reports no additional musculoskeletal complaints Integumentary/Breasts: Skin/Breast: Reports system reviewed and no additional complaints, except as docu Neurologic: Reports system reviewed and no additional complaints, except as documented Psychiatric: Psychiatric: Reports no additional psychiatric complaints Endocrine: Endocrine: Reports no additional endocrine complaints Hematologic/Lymphatic: Hematologic/Lymphatic: Reports no additional hematologic/lymphatic complaints Allergic/Immunologic: Allergic/Immunologic: Reports no additional allergic/immunologic complaints PMFSH Past Medical History Medical History Anxiety Arthritis Atrial fibrillation Carotid artery stenosis Colon cancer Congestive heart failure Depression Depression with anxiety GERD (gastroesophageal reflux disease) Hernia History of vaginal delivery x 2 HTN (hypertension) Hyperlipidemia Rectal cancer Surgical History Surgical History H/O resection of rectum History of cataract surgery History of partial colectomy S/P carotid endarterectomy Family History Family History Mother Family history non-contributory Hypertension Depression Heart disease Sibling Lung cancer Hypertension Depression Father Hypertension Heart disease Other Cancer Social History Social History Smoking packs per day: 2 Smokin
[2023-05-24 08:00] VITALS: BP 92/56; PULSE 96; RESP 17; O2SAT 99
[2023-05-24] MEDS: TETANUS,DIPHTHERIA,AC PERTUSSIS ADULT 0.5 ML (ADACEL) IM (08:19)
[2023-05-24 08:35] VITALS: BP 106/73; PULSE 98; RESP 17; O2SAT 95
--- NOTE | 2023-05-24 08:39 | PC.NURSE ---
Patients blood pressure reading 92/56. Patient states her blood pressure runs low and was at her doctors the other day and it was 96 systolic.
[2023-05-24 09:00] VITALS: BP 110/70; PULSE 82; RESP 17; O2SAT 97
[2023-05-24 09:22] VITALS: BP 115/66; PULSE 89; RESP 17; TEMP 36.4; O2SAT 98
== END 2023-05-24 09:22 | disposition home or self-care (01) ==
PROVIDERS: Emergency Provider Emergency Medicine; PCP Family Medicine
DX: S81.811A Laceration without foreign body, right lower leg, initial encounter (principal); W18.30XA Fall on same level, unspecified, initial encounter; I48.91 Unspecified atrial fibrillation; I50.9 Heart failure, unspecified; K21.9 Gastro-esophageal reflux disease without esophagitis; Z79.82 Long term (current) use of aspirin; Z85.038 Personal history of other malignant neoplasm of large intestine; I11.0 Hypertensive heart disease with heart failure; E78.5 Hyperlipidemia, unspecified; Z87.891 Personal history of nicotine dependence; Z23 Encounter for immunization; Z79.01 Long term (current) use of anticoagulants
CPT/HCPCS: 12001; 70450; 72125; 90471; 90715; 99284

== ENCOUNTER 2023-06-15 12:22 | Observation (INO) | payer MEDICARE, SELFPAY ==
[2023-06-15] VITALS (16 sets, daily range): BP systolic 102–108; BP diastolic 56–84; PULSE 78–99; RESP 14–22; TEMP 36.2–36.6; O2SAT 93–100; BMI 29.4
--- NOTE | ~2023-06-15 | XR_ITS ---
EXAMINATION: XR chest 1V portable DATE: 06/16/2023 10:06 INDICATION: Shortness of breath. TECHNIQUE: A single frontal view of the chest was obtained. COMPARISON: Chest single view 06/15/2023 FINDINGS: There are interstitial opacities in all lung zones bilaterally. There are airspace opacitie s at left lung base. There is a small left pleural effusion. No pneumothorax. Cardiomegaly is noted. There are changes of aortic valve replacement. There is a right internal jugular port with tip in rig ht atrium. IMPRESSION: 1. Stable diffuse lung disease, likely a combination of chronic interstitial lung disease and mild pu lmonary edema. 2. Stable small left pleural effusion. 3. Cardiomegaly. Reviewed, dictated and finalized at location A. IMPRESSION: 1. Stable diffuse lung disease, likely a combination of chronic interstitial kami ng disease and mild pulmonary edema. 2. Stable small left pleural effusion. 3. Cardiomegaly.
--- NOTE | ~2023-06-15 | XR_ITS ---
EXAMINATION: XR chest 1V portable DATE: 06/15/2023 12:54 INDICATION: Shortness of breath. Chest pain. TECHNIQUE: A single frontal view of the chest was obtained. COMPARISON: Chest single view 06/18/2022, chest CT 01/18/2022 FINDINGS: There is a diffuse interstitial pattern in the lungs. There are airspace opacities in left lower lung zone. There is a small left pleural effusion. No pneumothorax. Cardiomegaly is noted. Ther e are changes of aortic valve replacement. There is a right internal jugular port with tip at superio r cavoatrial junction. IMPRESSION: 1. Worsening diffuse lung disease, likely a combination of mild pulmonary edema and chronic interstit ial lung disease. 2. Small left pleural effusion. 3. Cardiomegaly. Reviewed, dictated and finalized at location A. IMPRESSION: 1. Worsening diffuse lung disease, likely a combination of mild pulmonary edema and chronic interstitial lung disease. 2. Small left pleural effusion. 3. Cardiomegaly.
--- NOTE | 2023-06-15 12:43 | ECG_ITS ---
SEE SCANNED COPY FOR CONFIRMED REPORT. MTDD
--- NOTE | 2023-06-15 12:53 | ED.SOB ---
HPI - SOB/Dyspnea General Chief Complaint: Shortness of Breath/Dyspnea Stated Complaint: COPD EX Time Seen by Provider: 06/15/23 12:43 Source: patient Mode of arrival: ambulatory Limitations: no limitations History of Present Illness HPI Narrative: Patient is an 83-year-old female with shortness of breath for the past week. She was at the primary doctor and sent to the ER for further evaluation. Primary doctor called me to tell me that she is likely in CHF exacerbation with a known CHF baseline problem. Patient uses 2-3 L of nasal cannula oxygen regularly for chronic lung disease. patient has known atrial fibrillation. Patient only uses aspirin for blood thinning. MD elicited complaint: shortness of breath Pertinent past history: other ( Chronic interstitial lung disease) Onset (ago): week(s) (1) Timing: constant Severity: moderate Exacerbating factors: movement Relieving factors: rest Known history of: other ( chronic interstitial lung disease) Associated symptoms: denies other symptoms Treatment prior to arrival: oxygen and diuretics ( recent increase from 20 to 40 mg of oral Lasix by grocery manager but that was only 1 day ago) Related Data Home oxygen amount: 3 liters Home Medications Medication Instructions Recorded Confirmed alprazolam 0.5 mg tablet 0.5 mg PO TID PRN Anxiety 11/30/19 12/02/22 aspirin 81 mg tablet 81 mg PO DAILY 11/30/19 12/02/22 losartan 25 mg tablet 12.5 mg PO DAILY 11/30/19 12/02/22 metoprolol succinate 25 mg 50 mg PO BID 11/30/19 12/02/22 tablet,extended release 24 hr simvastatin 40 mg tablet 40 mg PO HS 11/30/19 12/02/22 furosemide 40 mg tablet 40 mg PO BID 09/01/22 12/02/22 potassium chloride 10 mEq 20 meq PO BID 09/01/22 12/02/22 tablet,extended release(part/cryst) spironolactone 25 mg tablet 25 mg PO DAILY 09/01/22 12/02/22 oxygen-air delivery systems 12/02/22 12/02/22 Allergies Allergy/AdvReac Type Severity Reaction Status Date / Time phytonadione (vitamin K1) AdvReac Unknown Verified 06/15/23 12:59 Review of Systems Review of Systems: All systems reviewed & are unremarkable except as noted in HPI and below Constitutional: Constitutional: Reports no additional constitutional complaints Eyes: Eyes: Reports no additional eye complaints ENT: Reports system reviewed and no additional complaints, except as documented Cardiovascular: Cardiovascular: Reports no additional cardiovascular complaints Respiratory: Respiratory: Reports no additional respiratory complaints Gastrointestinal: Gastrointestinal: Reports no additional gastrointestinal complaints Genitourinary: Genitourinary: Reports no additional female genitourinary complaints Musculoskeletal: Musculoskeletal: Reports no additional musculoskeletal complaints Integumentary/Breasts: Skin/Breast: Reports system reviewed and no additional complaints, except as docu Neurologic: Reports system reviewed and no additional complaints, except as documented Psychiatric: Psychiatric: Reports no additional psychiatric complaints Endocrine: Endocrine: Reports no additional endocrine complaints Hematologic/Lymphatic: Hematologic/Lymphatic: Reports no additional hematologic/lymphatic complaints Allergic/Immunologic: Allergic/Immunologic: Reports no additional allergic/immunologic complaints PMFSH Past Medical History Medical History Anxiety Arthritis Atrial fibrillation Carotid artery stenosis Chest pain Colon cancer Congestive heart failure Depression Depression with anxiety GERD (gastroesophageal reflux disease) Hernia History of vaginal delivery x 2 HTN (hypertension) Hyperlipidemia Rectal cancer Surgical History Surgical History H/O resection of rectum History of cataract surgery History of partial colectomy S/P carotid endarterectomy Family History Family History (Reviewed 06/15/23 @ 12:54 by Brooks
[2023-06-15 13:06] LABS: Basophils Absolute Auto 0.02 K/mm3 (0.00-0.10); Basophils Percent Auto 0.2 % (0.0-1.0); Eosinophils Absolute Auto 0.02 K/mm3 (0.02-0.50); Eosinophils Percent Auto 0.2 % (1.0-6.0); Hematocrit 31.4 % (35.0-42.0); Hemoglobin 9.8 g/dL (11.7-13.8); Immature Granulocyte Absolute 0.03 K/mm3 (0.00-0.00); Immature Granulocyte Percent A 0.4 % (0.0-0.0); Lymphocytes Absolute Auto 0.41 K/mm3 (1.10-4.50); Lymphocytes Percent Auto 4.8 % (18.0-42.0); Mean Corpuscular HGB Conc 31.2 g/dL (32-36); Mean Corpuscular Hemoglobin 28.8 pg (27.0-31.0); Mean Corpuscular Volume 92.4 fL (78.0-102.0); Mean Platelet Volume 9.6 fl (9.2-11.8); Monocytes Absolute Auto 0.69 K/mm3 (0.10-0.90); Monocytes Percent Auto 8.2 % (2.0-11.0); Neutrophils Absolute Auto 7.29 K/mm3 (1.70-7.20); Neutrophils Percent Auto 86.2 % (50.0-70.0); Platelet Count Result 202 K/mm3 (150-420); Red Cell Distribution Width 15.4 % (11.6-14.4); White Blood Count 8.5 K/mm3 (4.8-10.8)
[2023-06-15] MEDS: FUROSEMIDE INJ 20 MG/2 ML VIAL IV PUSH (13:19)
[2023-06-15 13:28] LABS: Alanine Aminotransferase 16 U/L (14-59); Alkaline Phosphatase 99 U/L (46-116); Anion Gap 7 mmol/L (4-12); Aspartate Amino Transferase 17 U/L (15-37); Bilirubin,Total 0.6 mg/dL (0.00-1.00); Blood Urea Nitrogen 26 mg/dL (7-18); Carbon Dioxide 33 mmol/L (21-32); Chloride 98 mmol/L (98-108); Estimated CRCL calculation 35 ml/min; Estimated Glomerular Filt Rate 46; Glucose 127 mg/dL (70-99); Magnesium 1.8 mg/dL (1.8-2.4); NT Pro B Type Natriuretic Pept 3065 pg/mL (0-450); Osmolality Calculated 292 mOsm/kg (285-295); Potassium 3.9 mmol/L (3.5-5.1); Sodium 138 mmol/L (136-145); Total Protein 7.6 g/dL (6.4-8.2)
[2023-06-15 13:50] LABS: Appearance Urine Clear (Clear); Bilirubin Urine Negative (Negative); Blood Urine Negative (Negative); Color Urine Light Yellow (Yellow); Glucose Urine UA Negative (Negative); Ketones Urine Negative (Negative); Leukocyte Esterase Ur Negative LEU/UL (Negative); Nitrate Urine Negative (Negative); Protein Urine Negative (Negative); Urobilinogen Urine 0.2 mg/dL (0.2-1.0)
[2023-06-15 13:58] LABS: Add Urine Microscopic? NO
--- NOTE | 2023-06-15 15:19 | PC.NURSE ---
Pt arrives on the floor from the ED at 1500. She is A/Ox3 vss, O2 is on at 2L/NC. Pt is in no apparent distress. RN reviewed the pt Blue folder wirh her, the call system, and how to call a rapid responce. Pt verbalizes understanding.
--- NOTE | 2023-06-15 15:24 | PM.IMHP ---
H&P: HPI History of Present Illness Date/Time: 06/15/23 15:24 Chief Complaint: Dyspnea, CHF exacerbation Narrative: This is an 83 year old female patient with history of chronic hypoxic respiratory failure, atrial fibrillation and congestive heart failure who went to see primary care provider today due to progressive shortness of breath on exertion. PCP auscultated rales and sent to ER for further evaluation of CHF exacerbation. In ER workup shows CXR with increased pulmonary edema and possible worsening interstitial lung disease. Labs also show lower hemoglobin than previous results and GFR of 46 when usually over 60. Patient is admitted for further diuresis. She denies any blood loss recently and denies any further symptoms. Review of Systems Review of Systems: All systems reviewed & are unremarkable except as noted in HPI and below PMFSH Past Medical History Medical History Anxiety Arthritis Atrial fibrillation Carotid artery stenosis Chest pain Colon cancer Depression Depression with anxiety GERD (gastroesophageal reflux disease) Hernia History of vaginal delivery x 2 HTN (hypertension) Hyperlipidemia Rectal cancer Surgical History Surgical History H/O resection of rectum History of cataract surgery History of partial colectomy S/P carotid endarterectomy Family History Family History Mother Family history non-contributory Hypertension Depression Heart disease Sibling Lung cancer Hypertension Depression Father Hypertension Heart disease Other Cancer Social History Social History Smoking packs per day: 1 Smoking cigarettes per day: 20.0 Years smoked: 20 Smoking pack-years: 20.00 Smoking status: Former smoker Tobacco type: cigarettes Smokeless tobacco user: other Second hand tobacco smoke exposure: No Smoking end date: 02/16/80 Alcohol intake: never Drinks per week: 2 Substance use: never Substance use type: does not use Do You Feel Safe in your Home?: Yes Lack of Transportation: No Lack of Food: Never True Current Housing: I Have Housing Concerned About Future Housing: No Difficulty Paying Gas/Electric Bills: No Difficulty Paying for Meds: No Currently Unemployed: No Education: High School Diploma/GED Difficulty w/ Childcare or Family Care: No Living arrangements: alone Gender identity (if verbalized by the patient): Female Sexual Orientation (if Verbalized by the Patient): Straight or Heterosexual Spiritual care concerns: No Meds Home Medications and Allergies Home Medications Medication Instructions Recorded Confirmed Type alprazolam 0.5 mg tablet 0.5 mg PO TID PRN Anxiety 11/30/19 12/02/22 History aspirin 81 mg tablet 81 mg PO DAILY 11/30/19 12/02/22 History losartan 25 mg tablet 12.5 mg PO DAILY 11/30/19 12/02/22 History metoprolol succinate 25 mg 50 mg PO BID 11/30/19 12/02/22 History tablet,extended release 24 hr simvastatin 40 mg tablet 40 mg PO HS 11/30/19 12/02/22 History albuterol sulfate 90 mcg/actuation 2 puff inhalation QID PRN 01/20/22 12/02/22 Rx aerosol inhaler shortness of breath or wheezing #6.7 grams furosemide 40 mg tablet 40 mg PO BID 09/01/22 12/02/22 History potassium chloride 10 mEq 20 meq PO BID 09/01/22 12/02/22 History tablet,extended release(part/cryst) spironolactone 25 mg tablet 25 mg PO DAILY 09/01/22 12/02/22 History ipratropium bromide 21 mcg (0.03 2 spray intranasal TID #30 mL 12/02/22 12/02/22 Rx %) nasal spray oxygen-air delivery systems 12/02/22 12/02/22 History rivaroxaban 20 mg tablet (Xarelto) See Rx Instructions .Route 02/16/23 Rx .COMPLEX #90 tabs cephalexin 500 mg capsule 500 mg PO Q8H #15 caps 05/28/23 05/28/23 Rx pantoprazole
[2023-06-15 16:44] LABS: Ferritin 292 ng/mL (8-252); Folic Acid 13.4 ng/mL (8.6->20); Iron 38 ug/dL (50-170); Percent Iron Saturation 14 % (12-57); Vitamin B12 480 pg/mL (193-986)
[2023-06-15] MEDS: FUROSEMIDE INJ 40 MG/4 ML VIAL IV PUSH (17:13)
--- NOTE | 2023-06-15 17:39 | PC.NURSE ---
1600 here in room feet up in recliner. denies any discomfort. o2 per nc. lungs diminished. edema in al feet and legs.
--- NOTE | 2023-06-15 18:49 | PC.NURSE ---
patient has colosomy bag to [facility]. claims she is able to care for it herself. bag is intact has sm amt of soft brown stool in bag. daughter here and went to bring new bags in. we do not have the size in storage she needs.
[2023-06-15] MEDS: RIVAROXABAN 10 MG TABLET 20 MG PO (19:04)
[2023-06-16] VITALS: BP 102/58; PULSE 88; RESP 17; TEMP 36.4; O2SAT 93
[2023-06-16 05:16] LABS: Basophils Absolute Auto 0.01 K/mm3 (0.00-0.10); Basophils Percent Auto 0.1 % (0.0-1.0); Eosinophils Absolute Auto 0.03 K/mm3 (0.02-0.50); Eosinophils Percent Auto 0.4 % (1.0-6.0); Hematocrit 27.9 % (35.0-42.0); Hemoglobin 8.9 g/dL (11.7-13.8); Immature Granulocyte Absolute 0.02 K/mm3 (0.00-0.00); Immature Granulocyte Percent A 0.3 % (0.0-0.0); Lymphocytes Absolute Auto 0.56 K/mm3 (1.10-4.50); Mean Corpuscular HGB Conc 31.9 g/dL (32-36); Mean Corpuscular Hemoglobin 29.5 pg (27.0-31.0); Mean Corpuscular Volume 92.4 fL (78.0-102.0); Monocytes Percent Auto 8.8 % (2.0-11.0); Neutrophils Absolute Auto 6.65 K/mm3 (1.70-7.20); Neutrophils Percent Auto 83.4 % (50.0-70.0); Platelet Count Result 180 K/mm3 (150-420); Red Blood Count 3.02 M/mm3 (4.20-5.40); Red Cell Distribution Width 15.3 % (11.6-14.4)
[2023-06-16 05:31] LABS: Albumin Level 2.6 g/dL (3.4-5.0); Anion Gap 5 mmol/L (4-12); Blood Urea Nitrogen 24 mg/dL (7-18); Calcium 8.5 mg/dL (8.5-10.1); Carbon Dioxide 35 mmol/L (21-32); Chloride 100 mmol/L (98-108); Estimated CRCL calculation 39 ml/min; Estimated Glomerular Filt Rate 52; Glucose 96 mg/dL (70-99); Magnesium 1.6 mg/dL (1.8-2.4); Osmolality Calculated 294 mOsm/kg (285-295); Phosphorus 3.5 mg/dL (2.6-4.7); Potassium 3.5 mmol/L (3.5-5.1); Sodium 140 mmol/L (136-145)
--- OUTSIDE RECORDS SUMMARY | 2023-06-16 07:43 | XMS_ITS | Continuity of Care Document ---
Author Name Unknown Address [address] [place] [address] Phone [facility] Address [address] [place] [address] Phone Support Name Relationship Address Phone DO Yosi Turcios Primary Care Provider [address] [place] [address] MD Brooks Ledezma Emergency Provider [address] [place] [address] Unavailable MD Luis[place] [address] Care Teams Patient Care Team Team Status: Active Member Role Status Andrew Turcios DO Primary Care Provider Active Visit Care Team Team Status: Inactive Member Role Status Andrew Turcios DO Primary Care Provider Active Brooks Ledezma MD Emergency Provider Active Visit Care Team Team Status: Active Member Role Status Andrew Turcios DO Primary Care Provider Active Brooks Ledezma MD Emergency Provider Active Luisito Wilson MD Admit Provider, Attending Provi marcelino Active Visit Care Team Team Status: Inactive Member Role Status Andrew Turcios DO Primary Care Prov ider, Attending Provider, Referring Provider Active Visit Care Team Team Status: Inactive Member Role Status Andrew Turcios DO Primary Care Prov latiar, A
[2023-06-16 08:00] VITALS: BP 98/45; PULSE 110; RESP 14; RESP 16; TEMP 35.9; O2SAT 96
[2023-06-16] MEDS: POTASSIUM CHLORIDE 20 MEQ ER TABLET 40 MEQ PO (08:50)
[2023-06-16] MEDS: PANTOPRAZOLE 40 MG TABLET PO (09:20)
[2023-06-16] MEDS: SERTRALINE HCL 50 MG TABLET 200 MG PO (09:20)
[2023-06-16] MEDS: MAGNESIUM OXIDE 400 MG TABLET PO ×2 (09:30→10:06)
[2023-06-16] MEDS: SPIRONOLACTONE 25 MG TABLET PO (09:30)
[2023-06-16] MEDS: POTASSIUM CHLORIDE 20 MEQ ER TABLET PO (09:35)
[2023-06-16 09:40] VITALS: PULSE 100
[2023-06-16] MEDS: METOPROLOL SUCCINATE EXT REL 50 MG TABCR PO (09:40)
--- NOTE | 2023-06-16 09:57 | PM.DS ---
DS: Admitting Diagnosis Discharge Date 06/16/23 Admitting Diagnosis sob DS: Discharge Diagnosis Discharge Diagnosis (1) Acute exacerbation of CHF (congestive heart failure): Qualifiers: Heart failure type: unspecified Qualified Code(s): I50.9 - Heart failure, unspecified Code(s): I50.9 - Heart failure, unspecified Status: Acute Assessment and Plan: -CXR with pulmonary edema and possible interstitial lung disease -BNP elevated -takes furosemide at home, will change to IV for further diuresis -prior echo showed 55% LVEF with right systolic ventricular dysfunction (2) Chronic respiratory failure: Qualifiers: Respiratory failure complication: hypoxia Qualified Code(s): J96.11 - Chronic respiratory failure with hypoxia Code(s): J96.10 - Chronic respiratory failure, unspecified whether with hypoxia or hypercapnia Status: Acute Assessment and Plan: -Wears home oxygen at 3 liters per minute (3) Atrial fibrillation: Qualifiers: Atrial fibrillation type: unspecified chronic Qualified Code(s): I48.20 - Chronic atrial fibrillation, unspecified Code(s): I48.91 - Unspecified atrial fibrillation Status: Acute Assessment and Plan: -History a fib on metoprolol for rate control, aspirin only for anticoagulation -Borderline RVR in ER, rate 80s-90s on telemetry on admit -OK to DC telemetry due to chronic a fib that is controlled rate at this time (4) HTN (hypertension): Qualifiers: Hypertension type: primary hypertension Qualified Code(s): I10 - Essential (primary) hypertension Code(s): I10 - Essential (primary) hypertension Status: Acute Assessment and Plan: -Borderline lower blood pressures, only continue beta davon and hold any other antihypertensives (5) Anemia: Code(s): D64.9 - Anemia, unspecified Status: Acute Assessment and Plan: -Hemoglobin 9.8 when baseline 11.6-13, no known bleeding -ordered iron panel/B12/Folate (6) SEBASTIÁN (acute kidney injury): Code(s): N17.9 - Acute kidney failure, unspecified Status: Acute Assessment and Plan: -GFR 46 today, baseline over 60 -avoid nephrotoxins -hold losartan -trend labs with increased diuresis Plan -Diuresis, consider echocardiogram as last on file was nearly 1 year ago from another facility -Daily labs -admit under observation status at this time -continue home oxygen 2-3 liters/minute -patient already hoping to go home tomorrow... DS: Summary Hospital Course Reason for hospitalization: chf exacerbation Hospital Course: This is an 83 year old female with a pmh of chronic hypoxic respiratory failure, atrial fibrillation and congestive heart failure who was admitted overnight for observation after seeing her PCP today for shortness of breath. Per the patient her Dr had some concerns about fluid on my lungs and she was told to come to the ED. She was admitted as an observation patient for probable CHF exacerbation and started on IV diuresis. Today she is doing well on her baseline oxygen. She states she was having difficulty walking 10-15 feet without being short of breath. Today she is able to ambulate without dyspnea. Her lung sounds are clear throughout with diminished sounds in bilateral bases. Her lower extremities have trace pitting edema to BLE. She does have a wound to her right garcia that occurred after hitting her leg on her walker about 2-3 weeks ago. She states her friend, a retired [employer]/PA has been changing the dressing. I will plan on referring her to the wound care clinic in [place]. She has previously been seen there for a wound in the past. Her labs also show that she has some mild anemia. Iron deficiency was noted on her labs. The patient denies any bleeding concerns. Her last colonoscopy was in the last 2-3 years. She did lose a lot of blood when she initially injured her leg. Her daughter states that she does n
[2023-06-16] MEDS: FUROSEMIDE 40 MG TABLET PO (10:25)
--- NOTE | 2023-06-16 10:58 | PC.NURSE ---
Up to commode to void, back to bed, felt nauseated, dry heave with some clear thick phlegm noted, Danette Vance PLAN REP notified, patient still wants to go home voided 150ml per commode, stand by assist with use of cane, states this sometimes happens after she has her meds at home, started to feel better after spit up phlegm
--- NOTE | 2023-06-16 13:23 | PC.NURSE ---
Pt discharged to home. RN gave pt and daughter discharge instructions regarding medications, oxygen safety and wound care. Pt to see PCP on 06/22/23 for follow up. PCP will call wound clinic at [facility]. Both pt and daughter verbalized understanding of instructions.
[2023-06-16 13:45] VITALS: O2SAT 96
--- NOTE | 2023-06-17 09:21 | PC.NURSE ---
Discharge call back attempted, no answer
--- NOTE | 2023-06-21 09:58 | PC.NURSE ---
Discharge call back attempted, no answer
--- NOTE | 2023-06-23 12:29 | PC.NURSE ---
Discharge call back attempted, no answer
== END 2023-06-16 12:30 | disposition home or self-care (01) ==
LOC: CHSED 14:17 → CHS2ND 14:21
PROVIDERS: Nurse Practitioner; Admitting Provider Internal Medicine; Emergency Provider Emergency Medicine; PCP Family Medicine; Visit Provider Internal Medicine
DX: I11.0 Hypertensive heart disease with heart failure (principal); I50.9 Heart failure, unspecified; J96.02 Acute respiratory failure with hypercapnia; N17.9 Acute kidney failure, unspecified; I48.20 Chronic atrial fibrillation, unspecified; I65.29 Occlusion and stenosis of unspecified carotid artery; J84.9 Interstitial pulmonary disease, unspecified; D50.9 Iron deficiency anemia, unspecified; K21.9 Gastro-esophageal reflux disease without esophagitis; E78.5 Hyperlipidemia, unspecified; M19.90 Unspecified osteoarthritis, unspecified site; S81.801D Unspecified open wound, right lower leg, subsequent encounter; F32.A Depression, unspecified; F41.9 Anxiety disorder, unspecified; Z79.82 Long term (current) use of aspirin; Z85.038 Personal history of other malignant neoplasm of large intestine; Z99.81 Dependence on supplemental oxygen; Z85.048 Personal history of other malignant neoplasm of rectum, rectosigmoid junction, and anus; Z87.891 Personal history of nicotine dependence
CPT/HCPCS: 36415; 71045; 80053; 80069; 81003; 82607; 82728; 82746; 83540; 83550; 83735; 83880; 84484; 85025; 93005; 96374; 99285; A9270; G0378; J1940

== ENCOUNTER 2023-07-08 16:26 | Emergency (ER) | payer MEDICARE, SELFPAY ==
--- NOTE | ~2023-07-08 | XR_ITS ---
EXAMINATION: XR chest 1V portable DATE: 07/08/2023 17:07 INDICATION: Chronic obstructive pulmonary disease. TECHNIQUE: A single frontal view of the chest was obtained. COMPARISON: Chest single view 06/16/2023 FINDINGS: There are airspace and interstitial opacities throughout the lungs bilaterally. There is a small left pleural effusion. No pneumothorax. Cardiomegaly is noted. There are changes of aortic valv e replacement. There is a right internal jugular port with tip in right atrium. IMPRESSION: 1. Stable diffuse lung disease, consistent with chronic interstitial lung disease without or with sup erimposed mild pulmonary edema. 2. Stable small left pleural effusion. 3. Cardiomegaly. Reviewed, dictated and finalized at location A. IMPRESSION: 1. Stable diffuse lung disease, consistent with chronic interstitial lung disea se without or with superimposed mild pulmonary edema. 2. Stable small left pleural effusion. 3. Cardiomegaly.
[2023-07-08 16:30] VITALS: BP 104/55; PULSE 63; RESP 18; TEMP 36.6; O2SAT 94
[2023-07-08 17:04] LABS: Basophils Absolute Auto 0.02 K/mm3 (0.00-0.10); Basophils Percent Auto 0.2 % (0.0-1.0); Eosinophils Absolute Auto 0.02 K/mm3 (0.02-0.50); Eosinophils Percent Auto 0.2 % (1.0-6.0); Hematocrit 35.4 % (35.0-42.0); Hemoglobin 11.2 g/dL (11.7-13.8); Immature Granulocyte Absolute 0.02 K/mm3 (0.00-0.00); Immature Granulocyte Percent A 0.2 % (0.0-0.0); Lymphocytes Absolute Auto 0.55 K/mm3 (1.10-4.50); Mean Corpuscular HGB Conc 31.6 g/dL (32-36); Mean Corpuscular Hemoglobin 29.2 pg (27.0-31.0); Mean Corpuscular Volume 92.4 fL (78.0-102.0); Monocytes Absolute Auto 0.87 K/mm3 (0.10-0.90); Monocytes Percent Auto 9.5 % (2.0-11.0); Neutrophils Absolute Auto 7.65 K/mm3 (1.70-7.20); Neutrophils Percent Auto 83.9 % (50.0-70.0); Platelet Count Result 210 K/mm3 (150-420); Red Blood Count 3.83 M/mm3 (4.20-5.40); White Blood Count 9.1 K/mm3 (4.8-10.8)
[2023-07-08] MEDS: SODIUM CHLORIDE 0.9% IV 500 ML 999 ML IV CONT (17:13)
[2023-07-08 17:23] LABS: Alanine Aminotransferase 14 U/L (14-59); Albumin Level 2.8 g/dL (3.4-5.0); Alkaline Phosphatase 102 U/L (46-116); Anion Gap 6 mmol/L (4-12); Aspartate Amino Transferase 19 U/L (15-37); Bilirubin,Total 0.7 mg/dL (0.00-1.00); Blood Urea Nitrogen 18 mg/dL (7-18); Calcium 8.8 mg/dL (8.5-10.1); Carbon Dioxide 34 mmol/L (21-32); Chloride 98 mmol/L (98-108); Estimated CRCL calculation 35 ml/min; Estimated Glomerular Filt Rate 50; Glucose 145 mg/dL (70-99); Osmolality Calculated 290 mOsm/kg (285-295); Potassium 4.3 mmol/L (3.5-5.1); Sodium 138 mmol/L (136-145); Total Protein 7.5 g/dL (6.4-8.2)
[2023-07-08 17:57] LABS: Appearance Urine Clear (Clear); Bilirubin Urine 1+ (Negative); Blood Urine Negative (Negative); Color Urine Yellow (Yellow); Glucose Urine UA Negative (Negative); Ketones Urine Negative (Negative); Leukocyte Esterase Ur Negative LEU/UL (Negative); Nitrate Urine Negative (Negative); Protein Urine Negative (Negative); Specific Grav Ur 1.015 (1.010-1.020)
[2023-07-08 18:03] LABS: Add Urine Microscopic? YES; Bacteria Urine Trace /hpf; RBC Urine 0-2 /hpf (0-2); Squamous Epithelial Cell Urine Few /hpf (Few); WBC Urine 0-3 /hpf (0-3)
--- NOTE | 2023-07-08 18:13 | ED.GENADULT ---
HPI - General Adult General Chief complaint: Unspecified Stated complaint: weakness, r/o uti , confusion Source: patient and family Mode of arrival: wheelchair Limitations: no limitations History of Present Illness HPI narrative: this is 83-year-old female with history of colostomy and chronic lower extremity venous stasis was sent to the emergency department because of lower blood pressure patient otherwise doing well afebrile shows history of COPD and is on 3L of oxygen at home currently she is satting at 94% on room air no fever chills no chest pain no shortness of breath no dysuria no flank pain. Otherwise patient is comfortable not complaining of any discomfort. Onset (ago): hour(s) Related Data Home Medications Medication Instructions Recorded Confirmed aspirin 81 mg tablet 81 mg PO DAILY 11/30/19 06/15/23 metoprolol succinate 25 mg 50 mg PO BID 11/30/19 06/15/23 tablet,extended release 24 hr simvastatin 40 mg tablet 40 mg PO DAILY 11/30/19 06/15/23 furosemide 40 mg tablet 40 mg PO DAILY 09/01/22 06/15/23 potassium chloride 10 mEq 20 meq PO DAILY 09/01/22 06/15/23 tablet,extended release(part/cryst) spironolactone 25 mg tablet 25 mg PO DAILY 09/01/22 06/15/23 Allergies Allergy/AdvReac Type Severity Reaction Status Date / Time phytonadione (vitamin K1) AdvReac Unknown Verified 07/08/23 16:44 Review of Systems Review of Systems: All systems reviewed & are unremarkable except as noted in HPI and below PMFSH Past Medical History Medical History Anxiety Arthritis Atrial fibrillation Carotid artery stenosis Chest pain Colon cancer Depression Depression with anxiety GERD (gastroesophageal reflux disease) Hernia History of vaginal delivery x 2 HTN (hypertension) Hyperlipidemia Rectal cancer Surgical History Surgical History H/O resection of rectum History of cataract surgery History of partial colectomy S/P carotid endarterectomy Family History Family History Mother Family history non-contributory Hypertension Depression Heart disease Sibling Lung cancer Hypertension Depression Father Hypertension Heart disease Other Cancer Social History Social History Smoking packs per day: 1 Smoking cigarettes per day: 20.0 Years smoked: 20 Smoking pack-years: 20.00 Smoking status: Former smoker Tobacco type: cigarettes Smokeless tobacco user: other Second hand tobacco smoke exposure: No Smoking end date: 02/16/80 Alcohol intake: never Drinks per week: 2 Substance use: never Substance use type: does not use Do You Feel Safe in your Home?: Yes Lack of Transportation: No Lack of Food: Never True Current Housing: I Have Housing Concerned About Future Housing: No Difficulty Paying Gas/Electric Bills: No Difficulty Paying for Meds: No Currently Unemployed: No Education: High School Diploma/GED Difficulty w/ Childcare or Family Care: No Living arrangements: alone Gender identity (if verbalized by the patient): Female Sexual Orientation (if Verbalized by the Patient): Straight or Heterosexual Spiritual care concerns: No Exam Const: General: cooperative, healthy appearing, comfortable, no acute distress, well developed, alert, awake and Physically active Neck: Neck: normal visual inspection, full ROM, no lymphadenopathy and no meningeal signs Chest: Chest palpation & inspection: normal inspection of the chest and normal palpation of entire chest wall Resp: Effort & Inspection: normal respiratory effort and able to speak in complete sentences Auscultation: clear to auscultation bilaterally Cardio: Jugular venous distension: no JVD Palpation: normal PMI Rate: regular rate Rhythm: regular rhythm GI: Inspection
[2023-07-08 18:30] VITALS: BP 111/61; PULSE 75; RESP 20; TEMP 36.7; O2SAT 99
== END 2023-07-08 18:30 | disposition home or self-care (01) ==
PROVIDERS: Emergency Provider Emergency Medicine; PCP Family Medicine
DX: E86.0 Dehydration (principal); N30.00 Acute cystitis without hematuria; J44.9 Chronic obstructive pulmonary disease, unspecified; Z99.81 Dependence on supplemental oxygen; Z79.82 Long term (current) use of aspirin; I48.91 Unspecified atrial fibrillation; Z85.038 Personal history of other malignant neoplasm of large intestine; F41.8 Other specified anxiety disorders; K21.9 Gastro-esophageal reflux disease without esophagitis; I10 Essential (primary) hypertension; E78.5 Hyperlipidemia, unspecified; Z87.891 Personal history of nicotine dependence
CPT/HCPCS: 36415; 71045; 80053; 81001; 85025; 96361; 96374; 99284; J0696; J7040

== ENCOUNTER 2023-07-13 14:07 | Outpatient (CLI) | payer MEDICARE, SELFPAY ==
--- NOTE | ~2023-07-13 | XR_ITS ---
EXAMINATION: XR chest 2V Exam Date/Time: 07/13/2023 14:30 CDT HISTORY: J84.9 - Interstitial pulmonary disease, unspecified Comparison: 07/08/2023. RESULT: Lines, tubes, and devices: Right IJ implanted port terminating in the right atrium. Cardiac valve re placement. Lungs and pleura: Patchy bilateral airspace disease overlying moderate reticular opacities. New roun ded opacity in the left lung base. Bilateral mild costophrenic angle blunting. Cardiomediastinal silhouette: Stable. Other: No acute osseous or upper abdominal finding. IMPRESSION: Worsening pulmonary opacities, may reflect edema or infection, likely overlying chronic interstitial change. Possible rounded atelectasis in the left lung base versus subsegmental consolidation. Small b ilateral effusions. Reviewed, dictated and finalized at location K. IMPRESSION: Worsening pulmonary opacities, may reflect edema or infection, likely overlying chronic interstitial change. Possible rounded atelectasis in the left lung bas e versus subsegmental consolidation. Small bilateral effusions.
[2023-07-13 14:25] LABS: Basophils Absolute Auto 0.02 K/mm3 (0.00-0.10); Basophils Percent Auto 0.2 % (0.0-1.0); Eosinophils Absolute Auto 0.05 K/mm3 (0.02-0.50); Eosinophils Percent Auto 0.5 % (1.0-6.0); Hematocrit 37.4 % (35.0-42.0); Hemoglobin 11.8 g/dL (11.7-13.8); Immature Granulocyte Absolute 0.03 K/mm3 (0.00-0.00); Immature Granulocyte Percent A 0.3 % (0.0-0.0); Lymphocytes Percent Auto 4.4 % (18.0-42.0); Mean Corpuscular HGB Conc 31.6 g/dL (32-36); Mean Corpuscular Hemoglobin 28.8 pg (27.0-31.0); Mean Corpuscular Volume 91.2 fL (78.0-102.0); Mean Platelet Volume 10.6 fl (9.2-11.8); Monocytes Absolute Auto 0.67 K/mm3 (0.10-0.90); Monocytes Percent Auto 7.3 % (2.0-11.0); Neutrophils Absolute Auto 7.98 K/mm3 (1.70-7.20); Neutrophils Percent Auto 87.3 % (50.0-70.0); Platelet Count Result 201 K/mm3 (150-420); Red Cell Distribution Width 15.2 % (11.6-14.4); White Blood Count 9.2 K/mm3 (4.8-10.8)
[2023-07-13 14:47] LABS: Occult Blood Negative (Negative)
[2023-07-13 15:58] LABS: Alanine Aminotransferase 20 U/L (14-59); Albumin Level 3.1 g/dL (3.4-5.0); Alkaline Phosphatase 111 U/L (46-116); Anion Gap 10 mmol/L (4-12); Aspartate Amino Transferase 34 U/L (15-37); Bilirubin,Total 0.6 mg/dL (0.00-1.00); Blood Urea Nitrogen 16 mg/dL (7-18); Calcium 8.9 mg/dL (8.5-10.1); Carbon Dioxide 31 mmol/L (21-32); Chloride 99 mmol/L (98-108); Estimated Glomerular Filt Rate 59; Ferritin 280 ng/mL (8-252); Glucose 121 mg/dL (70-99); Iron 112 ug/dL (50-170); Magnesium 1.6 mg/dL (1.8-2.4); Osmolality Calculated 292 mOsm/kg (285-295); Percent Iron Saturation 44 % (12-57); Potassium 4.6 mmol/L (3.5-5.1); Sodium 140 mmol/L (136-145); Total Protein 7.3 g/dL (6.4-8.2)
== END 2023-07-13 14:08 | disposition home or self-care (01) ==
PROVIDERS: PCP Family Medicine; Visit Provider Family Medicine
DX: D50.9 Iron deficiency anemia, unspecified (principal); D64.9 Anemia, unspecified; R62.7 Adult failure to thrive; C20 Malignant neoplasm of rectum; R19.7 Diarrhea, unspecified; J84.9 Interstitial pulmonary disease, unspecified; R91.8 Other nonspecific abnormal finding of lung field
CPT/HCPCS: 36415; 71046; 80053; 82272; 82728; 83540; 83550; 83735; 85025

== ENCOUNTER 2023-07-13 16:52 | Emergency (ER) | payer MEDICARE, SELFPAY ==
[2023-07-13] VITALS (8 sets, daily range): BP systolic 107–132; BP diastolic 43–68; PULSE 59–72; RESP 16–18; TEMP 36.4–36.6; O2SAT 91–99
--- NOTE | ~2023-07-13 | CT_ITS ---
EXAMINATION: CT cervical spine wo con DATE: 07/13/2023 17:41 INDICATION: fall TECHNIQUE: Computed tomography (CT) of the cervical spine was performed without intravenous contrast. Automated exposure control and iterative reconstruction technique were employed. The dose-length pro duct was 605.33 mGy-cm. COMPARISON: 05/24/2023. FINDINGS: Vertebral Body Alignment: Intact. Mild reversal of the normal cervical lordosis, centered at C5-6. Craniocervical and atlantoaxial alignment: Moderate degenerative change. Alignment intact. Osseous structures/fracture: No evidence of a lytic or blastic process in the visualized spine. No e vidence of acute fracture. Cervical soft tissues: The paraspinal soft tissues planes are maintained. Motion artifact and chronic appearing interstitial changes in the lungs. Partially visualized right IJ central line. Atheroscler otic aortic arch calcification. Small bilateral pleural effusions. Degenerative changes: Degenerative changes, without severe neural foraminal or central canal narrowin g. IMPRESSION: No acute fracture or traumatic malalignment in the cervical spine. Interstitial lung disease. Small bilateral pleural effusions. Reviewed, dictated and finalized at location K.
--- NOTE | ~2023-07-13 | XR_ITS ---
EXAM: XR elbow LT min 3V DATE: 07/13/2023 17:40 HISTORY: fall . COMPARISON: None available. FINDINGS: Decreased mineralization. No fracture or dislocation. No lytic or blastic lesion. Mild deg enerative change at the elbow joint. No erosion or periosteal change. Soft tissues within normal limi ts. IMPRESSION: No acute osseous finding in the left elbow. Reviewed, dictated and finalized at location K.
--- NOTE | ~2023-07-13 | CT_ITS ---
EXAMINATION: CT brain wo con DATE: 07/13/2023 17:41 INDICATION: fall . TECHNIQUE: Computed tomography (CT) of the head was performed without intravenous contrast. The mA wa s adjusted according to patient size. Iterative reconstruction technique was employed. The dose-lengt h product was 605.33 mGy-cm. COMPARISON: 05/24/2023. FINDINGS: No acute intracranial hemorrhage or extra-axial fluid collection. No hydrocephalus, mass, or herniation. No acute ischemic infarct. Unremarkable dural venous sinus attenuation. No acute osseous abnormality. The aerated spaces are clear. Mild atrophy and moderate chronic white matter change. Atherosclerotic intracranial calcification. Mu ltiple calcified soft tissue nodules. Left lens replacement. IMPRESSION: No acute intracranial process. Reviewed, dictated and finalized at location K.
--- NOTE | 2023-07-13 16:58 | ED.FALL ---
HPI - Fall General Chief Complaint: Fall Stated Complaint: FALL Time Seen by Provider: 07/13/23 16:53 Source: patient Mode of arrival: ambulatory Limitations: no limitations History of Present Illness HPI Narrative: Patient is an 83-year-old female who lives at home and took a fall prior to arrival. She sustained a left forehead injury and hematoma formation. She also has a left elbow skin tear and injury. Tetanus shot up-to-date in the past 10 years. patient is on Xarelto for AFib. She had a closed head injury. MD complaint: fall Onset (ago): minute(s) (30) Fall from: standing Fall witnessed: yes, by family Place fall occurred: home Loss of consciousness: none Prolonged down time: no Symptoms prior to fall: none Context: tripped/slipped ( She tripped over her foot going up the stairs to her house) Location of injury: head ( left forehead), face ( left forehead) and other ( left upper extremity) Location of injury - extremities: Left: elbow Severity: mild Severity scale (1-10): 1 Quality: dull Associated symptoms (after fall): denies Related Data Home Medications Medication Instructions Recorded Confirmed aspirin 81 mg tablet 81 mg PO DAILY 11/30/19 07/13/23 metoprolol succinate 25 mg 50 mg PO BID 11/30/19 07/13/23 tablet,extended release 24 hr simvastatin 40 mg tablet 40 mg PO DAILY 11/30/19 07/13/23 furosemide 40 mg tablet 40 mg PO DAILY 09/01/22 07/13/23 potassium chloride 10 mEq 20 meq PO DAILY 09/01/22 07/13/23 tablet,extended release(part/cryst) spironolactone 25 mg tablet 25 mg PO DAILY 09/01/22 07/13/23 Allergies Allergy/AdvReac Type Severity Reaction Status Date / Time phytonadione (vitamin K1) AdvReac Unknown Verified 07/13/23 17:00 Review of Systems Review of Systems: All systems reviewed & are unremarkable except as noted in HPI and below Constitutional: Constitutional: Reports no additional constitutional complaints Eyes: Eyes: Reports no additional eye complaints ENT: Reports system reviewed and no additional complaints, except as documented Cardiovascular: Cardiovascular: Reports no additional cardiovascular complaints Respiratory: Respiratory: Reports no additional respiratory complaints Gastrointestinal: Gastrointestinal: Reports no additional gastrointestinal complaints Genitourinary: Genitourinary: Reports no additional female genitourinary complaints Musculoskeletal: Musculoskeletal: Reports no additional musculoskeletal complaints Integumentary/Breasts: Skin/Breast: Reports system reviewed and no additional complaints, except as docu Neurologic: Reports system reviewed and no additional complaints, except as documented Psychiatric: Psychiatric: Reports no additional psychiatric complaints Endocrine: Endocrine: Reports no additional endocrine complaints Hematologic/Lymphatic: Hematologic/Lymphatic: Reports no additional hematologic/lymphatic complaints Allergic/Immunologic: Allergic/Immunologic: Reports no additional allergic/immunologic complaints PMFSH Past Medical History Medical History Anxiety Arthritis Atrial fibrillation Carotid artery stenosis Chest pain Colon cancer Depression Depression with anxiety GERD (gastroesophageal reflux disease) Hernia History of vaginal delivery x 2 HTN (hypertension) Hyperlipidemia Rectal cancer Surgical History Surgical History H/O resection of rectum History of cataract surgery History of partial colectomy S/P carotid endarterectomy Family History Family History Mother Family history non-contributory Hypertension Depression Heart disease Sibling Lung cancer Hypertension Depression Father Hypertension Heart disease Other Cancer Social History Social History Smoking packs per
[2023-07-13] MEDS: NEOMYCIN/POLYMYXIN/BACITRACIN OINTMENT PACKET 1 PACKET TOPICAL (17:50)
== END 2023-07-13 18:15 | disposition home or self-care (01) ==
PROVIDERS: Emergency Provider Emergency Medicine; PCP Family Medicine
DX: S09.90XA Unspecified injury of head, initial encounter (principal); S51.012A Laceration without foreign body of left elbow, initial encounter; W10.9XXA Fall (on) (from) unspecified stairs and steps, initial encounter; I48.91 Unspecified atrial fibrillation; I10 Essential (primary) hypertension; E78.5 Hyperlipidemia, unspecified; K21.9 Gastro-esophageal reflux disease without esophagitis; F41.8 Other specified anxiety disorders; Z87.891 Personal history of nicotine dependence; Z79.01 Long term (current) use of anticoagulants; Z79.82 Long term (current) use of aspirin
CPT/HCPCS: 36415; 70450; 71046; 72125; 73080; 80053; 82272; 82728; 83540; 83550; 83735; 85025; 99284

== ENCOUNTER 2023-07-15 10:32 | Inpatient (IN) | payer MEDICARE, SELFPAY ==
[2023-07-15] VITALS (18 sets, daily range): BP systolic 96–127; BP diastolic 44–77; PULSE 50–106; RESP 15–24; TEMP 36.3–36.9; O2SAT 94–100; BMI 32.5
--- NOTE | ~2023-07-15 | CT_ITS ---
EXAMINATION: CT brain wo con DATE: 07/15/2023 11:54 INDICATION: Confusion. Weakness. TECHNIQUE: Computed tomography (CT) of the head was performed without intravenous contrast. The mA wa s adjusted according to patient size. Iterative reconstruction technique was employed. The dose-lengt h product was 605.33 mGy-cm. COMPARISON: Head CT 07/13/2023 FINDINGS: There are scattered areas of low attenuation in the cerebral white matter. There is no intr acranial hemorrhage, acute infarction, or abnormal intracranial mass lesion. The ventricles are tila l in size. There are likely changes of left ocular lens replacement surgery. There is mild mucosal th ickening in sphenoid sinus. The mastoid air cells are normal. There are multiple calcified masses in the scalp, which may be old hematomas. IMPRESSION: 1. Stable moderate nonspecific cerebral white matter disease, which likely represents chronic small v essel ischemic disease. Reviewed, dictated and finalized at location A. IMPRESSION: 1. Stable moderate nonspecific cerebral white matter disease, which likely repr esents chronic small vessel ischemic disease.
--- NOTE | ~2023-07-15 | XR_ITS ---
EXAMINATION: XR chest 1V portable DATE: 07/15/2023 11:54 INDICATION: Shortness of breath. TECHNIQUE: A single frontal view of the chest was obtained. COMPARISON: Chest 2 views 07/13/2023 FINDINGS: There are airspace and interstitial opacities in all lung zones bilaterally. There are smal l pleural effusions. No pneumothorax. Cardiomegaly is noted. There are changes of aortic valve replac ement. There is a right internal jugular port with tip in right atrium. IMPRESSION: 1. Diffuse lung disease with slight improvement on the right, consistent with chronic interstitial kami ng disease without or with superimposed pulmonary edema or pneumonia. 2. Stable small pleural effusions. 3. Cardiomegaly. Reviewed, dictated and finalized at location A. IMPRESSION: 1. Diffuse lung disease with slight improvement on the right, consistent with c hronic interstitial lung disease without or with superimposed pulmonary edema o r pneumonia. 2. Stable small pleural effusions. 3. Cardiomegaly.
--- NOTE | ~2023-07-15 | CT_ITS ---
CT Scan of the Chest without Contrast: Clinical Indication: Shortness of breath Technique: Contiguous sections were acquired throughout the chest without intravenous contrast. Dose reduction technique was used on this scan by utilizing automated exposure control and iterative recon struction technique. The dose-length product (DLP) was 314.55 mGy-cm. COMPARISON: 01/18/2022 Findings: Mildly enlarged mediastinal lymph nodes are again present, similar to prior exam. Aortic valve replac ement in place. Extensive coronary artery calcifications are present. No pericardial effusion. Moderate simple appearing right pleural effusion present. Zdvgi-gu-poizeeik complex left pleural effu wesley present with thickening of the pleural lining. There is patchy consolidation with extensive grou ndglass opacity and diffuse interstitial thickening in the aerated lungs. There is bibasilar dependen t atelectasis. Images through the upper abdomen reveal no abnormalities. Impression: Moderate right pleural effusion. Iaipo-mk-rensjrwf complex left pleural effusion which could reflect empyema or other exudative effusi on. Patchy consolidation with extensive groundglass opacity and diffuse interstitial thickening aerated l ungs. Correlate for chronic interstitial disease and superimposed edema or pneumonia. Associated bibasilar atelectatic change. Reviewed, dictated and finalized at location . Impression: Moderate right pleural effusion. Wqudz-ad-aphmraob complex left pleural effusion which could reflect empyema or other exudative effusion. Patchy consolidation with extensive groundglass opacity and diffuse interstitia l thickening aerated lungs. Correlate for chronic interstitial disease and supe rimposed edema or pneumonia. Associated bibasilar atelectatic change.
--- NOTE | 2023-07-15 11:00 | ECG_ITS ---
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 Measurements Intervals [place] Rate: 57 P: 0 WI: 0 QRS: -35 QRSD: 87 T: -37 QT: 375 QTc: 367 Interpretive Statements ATRIAL FIBRILLATION WITH SLOW VENTRICULAR RESPONSE LOW QRS VOLTAGE IN PRECORDIAL LEADS INCOMPLETE RIGHT BUNDLE BRANCH BLOCK BORDERLINE ST-T WAVE ABNORMALITY- DIFFUSE LEADS BASELINE ARTIFACT- I, II, III, AVR, AVL, AVF, V1-V3 ABNORMAL ECG No previous ECG available for comparison Electronically Signed On 07-15-2023 13:29:47 CDT by Syed Quiles D.O.
[2023-07-15] MEDS: SODIUM CHLORIDE 0.9% IV 1,000 ML 999 ML IV CONT (11:06)
[2023-07-15] MEDS: IPRATROPIUM 0.5 MG/ALBUTEROL SULFATE 2.5 MG AMPUL.NEB 3 ML INHALATION (11:17)
--- NOTE | 2023-07-15 11:27 | PC.NURSE ---
DAUGHTER IS AT BEDSIDE. PT HAS IVF INFUSING ORDERED WITHOUT DIFFICULTY. PT DENIES ANY NEEDS OR COMPLAINTS. PT IS AWAITING RESULTS AT THIS TIME. WILL CONTINUE TO MONITOR.
[2023-07-15 11:38] LABS: Basophils Absolute Auto 0.03 K/mm3 (0.00-0.10); Basophils Percent Auto 0.3 % (0.0-1.0); Eosinophils Absolute Auto 0.02 K/mm3 (0.02-0.50); Eosinophils Percent Auto 0.2 % (1.0-6.0); Hematocrit 34.5 % (35.0-42.0); Hemoglobin 10.7 g/dL (11.7-13.8); Immature Granulocyte Absolute 0.03 K/mm3 (0.00-0.00); Immature Granulocyte Percent A 0.3 % (0.0-0.0); Lymphocytes Absolute Auto 0.44 K/mm3 (1.10-4.50); Lymphocytes Percent Auto 5.1 % (18.0-42.0); Mean Corpuscular Hemoglobin 28.5 pg (27.0-31.0); Mean Platelet Volume 10.6 fl (9.2-11.8); Monocytes Absolute Auto 0.85 K/mm3 (0.10-0.90); Monocytes Percent Auto 9.9 % (2.0-11.0); Neutrophils Absolute Auto 7.22 K/mm3 (1.70-7.20); Neutrophils Percent Auto 84.2 % (50.0-70.0); Platelet Count Result 159 K/mm3 (150-420); Red Blood Count 3.75 M/mm3 (4.20-5.40); Red Cell Distribution Width 15.6 % (11.6-14.4); White Blood Count 8.6 K/mm3 (4.8-10.8)
[2023-07-15 11:50] LABS: SARS-CoV-2 RNA PCR Negative (Negative)
[2023-07-15 11:51] LABS: Influenza A QL RT-PCR Negative (Negative); Influenza B QL RT-PCR Negative (Negative); RSV RNA, RT-PCR Negative (Negative)
[2023-07-15 11:57] LABS: Lactic Acid Reflex 1.3 mmol/L (0.4-2.0)
[2023-07-15 12:06] LABS: Alanine Aminotransferase 18 U/L (14-59); Albumin Level 2.8 g/dL (3.4-5.0); Alkaline Phosphatase 107 U/L (46-116); Anion Gap 7 mmol/L (4-12); Aspartate Amino Transferase 22 U/L (15-37); Bilirubin,Total 0.5 mg/dL (0.00-1.00); Blood Urea Nitrogen 15 mg/dL (7-18); Calcium 8.8 mg/dL (8.5-10.1); Carbon Dioxide 31 mmol/L (21-32); Chloride 101 mmol/L (98-108); Estimated CRCL calculation 37 ml/min; Estimated Glomerular Filt Rate 52; Glucose 100 mg/dL (70-99); NT Pro B Type Natriuretic Pept 6747 pg/mL (0-450); Osmolality Calculated 288 mOsm/kg (285-295); Potassium 4.5 mmol/L (3.5-5.1); Sodium 139 mmol/L (136-145); Total Protein 7.3 g/dL (6.4-8.2); Troponin I 18.4 ng/L (0.00-60.4)
--- NOTE | 2023-07-15 12:14 | PC.NURSE ---
PT IS SLEEPING ON STRETCHER WITH DAUGHTER AT BEDSIDE. IVF CONTINUE TO INFUSE WITHOUT DIFFICULTY. NAD NOTED. WILL CONTINUE TO MONITOR.
--- NOTE | 2023-07-15 12:27 | ED.WEAKNESS ---
HPI - Weakness General Chief complaint: Weakness Stated complaint: short of breath and altered LOC Time Seen by Provider: 07/15/23 10:41 Source: patient, family and EMS Mode of arrival: EMS Limitations: physical limitation and clinical condition History of Present Illness HPI Narrative: this is an 83-year-old female presents via EMS from home has had generalized weakness over the last 2 to 3 days has had multiple ER visits over the last 1 to 2 weeks with some falls and was diagnosed with urinary tract infection and was seen by her primary approximately 2 days ago and is currently on Levaquin. Patient has been declining, with some decreased appetite and generalized weakness. Patient with history of atrial fibrillation currently on Xarelto and recently diagnosed with a urinary tract infection and currently on Levaquin. Patient has a history Copd currently on home O2 of 3L and currently satting at 100% on 3L. Otherwise there is no fever chills no chest pain no abdominal pain no flank pain no nausea or vomiting. Has a wound on her right lower extremity lateral aspect that patient has been seeing wound care and history of chronic venous stasis. Complaint: generalized weakness Onset (ago): day(s) Duration: constant Location: generalized Severity: moderate Related Data Home Medications Medication Instructions Recorded Confirmed aspirin 81 mg tablet 81 mg PO DAILY 11/30/19 07/15/23 metoprolol succinate 25 mg 50 mg PO BID 11/30/19 07/15/23 tablet,extended release 24 hr simvastatin 40 mg tablet 40 mg PO DAILY 11/30/19 07/15/23 furosemide 40 mg tablet 40 mg PO DAILY 09/01/22 07/15/23 potassium chloride 10 mEq 20 meq PO DAILY 09/01/22 07/15/23 tablet,extended release(part/cryst) spironolactone 25 mg tablet 25 mg PO DAILY 09/01/22 07/15/23 Allergies Allergy/AdvReac Type Severity Reaction Status Date / Time phytonadione (vitamin K1) AdvReac Unknown Verified 07/15/23 10:48 Review of Systems Review of Systems: All systems reviewed & are unremarkable except as noted in HPI and below PMFSH Past Medical History Medical History Anxiety Arthritis Atrial fibrillation Carotid artery stenosis Chest pain Colon cancer Depression Depression with anxiety GERD (gastroesophageal reflux disease) Hernia History of vaginal delivery x 2 HTN (hypertension) Hyperlipidemia Rectal cancer Surgical History Surgical History H/O resection of rectum History of cataract surgery History of partial colectomy S/P carotid endarterectomy Family History Family History Mother Family history non-contributory Hypertension Depression Heart disease Sibling Lung cancer Hypertension Depression Father Hypertension Heart disease Other Cancer Social History Social History Smoking packs per day: 0.5 Smoking cigarettes per day: 10.0 Years smoked: 20 Smoking pack-years: 10.00 Smoking status: Former smoker Tobacco type: cigarettes Smokeless tobacco user: other Second hand tobacco smoke exposure: No Smoking end date: 02/15/73 Alcohol intake: never Drinks per week: 2 Substance use: never Substance use type: does not use Do You Feel Safe in your Home?: Yes Lack of Transportation: No Lack of Food: Never True Current Housing: I Have Housing Concerned About Future Housing: No Difficulty Paying Gas/Electric Bills: No Difficulty Paying for Meds: No Currently Unemployed: No Education: High School Diploma/GED Difficulty w/ Childcare or Family Care: No Living arrangements: alone Gender identity (if verbalized by the patient): Female Sexual Orientation (if Verbalized by the Patient): Straight or Heterosexual Spiritual care concerns: No Exam Const: General: heal
[2023-07-15] MEDS: levoFLOXacin 500 MG/D5W 100 ML 500 MG/100 ML BAG 100 MG IVPB (12:35)
--- NOTE | 2023-07-15 13:09 | PC.NURSE ---
PT IS TO BE ADMITTED TO ROOM 210, ROOM NEEDS TO BE CLEANED. FLOOR TO NOTIFY WHEN ROOM IS READY. DAUGHTER AND PT ARE AWARE OF PLAN OF CARE. NAD NOTED. VSS.(AFIB IN 40 RANGE) ERP IS AWARE. WILL CONTINUE TO MONITOR.
--- NOTE | 2023-07-15 13:31 | PC.NURSE ---
PT IS AT BEDSIDE FOR EVALUATION AT THIS TIME. WILL CONTINUE TO MONITOR.
[2023-07-15 14:14] LABS: Appearance Urine Clear (Clear); Bilirubin Urine Negative (Negative); Blood Urine Negative (Negative); Color Urine Light Yellow (Yellow); Glucose Urine UA Negative (Negative); Ketones Urine Negative (Negative); Leukocyte Esterase Ur Trace LEU/UL (Negative); Nitrate Urine Negative (Negative); Protein Urine Negative (Negative); Urobilinogen Urine 0.2 mg/dL (0.2-1.0)
--- NOTE | 2023-07-15 14:15 | PC.NURSE ---
PT UP TO COMMODE WITH ASSISTANCE, PT HAS UNSTEADY GAIT NOTED. PT RETURNED TO STRETCHER AND ADMITTED TO ROOM 210. PT HAS BRUISING NOTED TO BILAT EXTREMITIES, FOREHEAD, POSTERIOR RT SHOULDER AND UPPER ARM.
--- NOTE | 2023-07-15 14:20 | PC.NURSE ---
Patient arrived to unit on stretcher from ER. Patient able to pivot transfer from stretcher to bed with 2 assist and gait belt. Patient and family educated on use of bed control, call light, visiting hours and use of rapid response. Family voiced understanding. Patient has had numerous falls and an ongoing wound on her R anterior lower leg and an abrasion on her left upper arm. See photos.
[2023-07-15 14:29] LABS: Add Urine Microscopic? YES; RBC Urine None seen /hpf (0-2); WBC Urine 0-3 /hpf (0-3)
[2023-07-15 14:30] LABS: Bacteria Urine None seen /hpf; Squamous Epithelial Cell Urine Few /hpf (Few)
[2023-07-15] MEDS: FUROSEMIDE INJ 40 MG/4 ML VIAL IV PUSH (15:47)
[2023-07-15] MEDS: RIVAROXABAN 10 MG TABLET 20 MG PO (17:14)
[2023-07-15] MEDS: MIRTAZAPINE 15 MG TABLET 30 MG PO (20:34)
[2023-07-16] VITALS (10 sets, daily range): BP systolic 106–125; BP diastolic 45–70; PULSE 50–78; RESP 16–18; TEMP 36.7–37; O2SAT 92–98
[2023-07-16 05:12] LABS: Basophils Absolute Auto 0.03 K/mm3 (0.00-0.10); Basophils Percent Auto 0.3 % (0.0-1.0); Eosinophils Absolute Auto 0.05 K/mm3 (0.02-0.50); Eosinophils Percent Auto 0.6 % (1.0-6.0); Hematocrit 31.2 % (35.0-42.0); Hemoglobin 9.8 g/dL (11.7-13.8); Immature Granulocyte Absolute 0.03 K/mm3 (0.00-0.00); Immature Granulocyte Percent A 0.3 % (0.0-0.0); Lymphocytes Absolute Auto 0.44 K/mm3 (1.10-4.50); Mean Corpuscular HGB Conc 31.4 g/dL (32-36); Mean Corpuscular Hemoglobin 28.7 pg (27.0-31.0); Mean Corpuscular Volume 91.2 fL (78.0-102.0); Mean Platelet Volume 11.3 fl (9.2-11.8); Monocytes Absolute Auto 1.04 K/mm3 (0.10-0.90); Monocytes Percent Auto 11.8 % (2.0-11.0); Neutrophils Absolute Auto 7.21 K/mm3 (1.70-7.20); Platelet Count Result 151 K/mm3 (150-420); Red Blood Count 3.42 M/mm3 (4.20-5.40); Red Cell Distribution Width 15.7 % (11.6-14.4); White Blood Count 8.8 K/mm3 (4.8-10.8)
[2023-07-16 05:23] LABS: Anion Gap 8 mmol/L (4-12); Blood Urea Nitrogen 13 mg/dL (7-18); Calcium 8.5 mg/dL (8.5-10.1); Carbon Dioxide 30 mmol/L (21-32); Chloride 103 mmol/L (98-108); Estimated CRCL calculation 42 ml/min; Estimated Glomerular Filt Rate > 60; Glucose 91 mg/dL (70-99); Osmolality Calculated 292 mOsm/kg (285-295); Sodium 141 mmol/L (136-145)
--- NOTE | 2023-07-16 07:45 | PM.IMHP ---
H&P: HPI History of Present Illness Date/Time: 07/16/23 07:45 Chief Complaint: Shortness of breath, weakness Narrative: This is a pleasant 83-year-old female with a past medical history significant for anxiety, atrial fibrillation on Xarelto, carotid artery stenosis, colon cancer with colostomy, chronic respiratory failure on 3-4 L at home, depression and anxiety, GERD, hypertension, hyperlipidemia, and rectal cancer who presents to the emergency room with complaints of shortness of breath and weakness. The patient provides the following history, for the last month she has been feeling increasingly unwell. She reports a poor appetite with decreased mobility and frequent falls. Over the last week she has had worsening shortness of breath that has caused her to seek treatment with her primary care provider and present to the ER twice in the last few days. She also reports an 80 lb weight loss in the last year. On exam today she appears unwell, on 3 L nasal cannula, and is speaking in short sentences. She keeps clutching her chest complaining of not being able to catch her breath. She denies dizziness, headache, chest pain, productive cough, fever, chills, abdominal pain, nausea, or vomiting. She is urinating without difficulty and has having bowel movements per her ostomy. She denies blood in her stool. Currently she lives at home alone and is normally independent of all ADLs, walking with a walker but has had increased weakness and fatigue. In the ED cbc significant for white count 8.8, hemoglobin 10.7, neutrophils 84.2. Her BMP is unremarkable. BNP elevated at 6747. Her UA is negative for infection. Respiratory panel was negative. CT of her head shows stable moderate nonspecific cerebral white matter disease. Chest x-ray shows diffuse lung disease consistent with chronic interstitial lung disease and possible pulmonary edema versus pneumonia superimposed, stable pleural effusions, and cardiomegaly. Blood cultures have been drawn and are pending. Patient was started on Levaquin. EKG shows atrial fibrillation with slow ventricular response, rate of 57 with incomplete right bundle-branch block. Patient was admitted to the floor under the hospitalist service for further workup, management of chronic conditions, PT OT consult, fluid diuresis and IV antibiotics for probable pneumonia. Review of Systems Review of Systems: All systems reviewed & are unremarkable except as noted in HPI and below PMFSH Past Medical History Medical History Anxiety Arthritis Atrial fibrillation Carotid artery stenosis Chest pain Colon cancer Depression Depression with anxiety GERD (gastroesophageal reflux disease) Hernia History of vaginal delivery x 2 HTN (hypertension) Hyperlipidemia Rectal cancer Surgical History Surgical History H/O resection of rectum History of cataract surgery History of partial colectomy S/P carotid endarterectomy Family History Family History Mother Family history non-contributory Hypertension Depression Heart disease Sibling Lung cancer Hypertension Depression Father Hypertension Heart disease Other Cancer Social History Social History Smoking packs per day: 0.5 Smoking cigarettes per day: 10.0 Years smoked: 20 Smoking pack-years: 10.00 Smoking status: Former smoker Tobacco type: cigarettes Smokeless tobacco user: other Second hand tobacco smoke exposure: No Smoking end date: 02/15/73 Alcohol intake: never Drinks per week: 2 Substance use: never Substance use type: does not use Do You Feel Safe in your Home?: Yes Lack of Transportation: No Lack of Food: Never True Current Housing: I Have Housing Concerned About Future Housing: No Difficult
[2023-07-16] MEDS: guaiFENesin 12 HR 600 MG TABCR 1200 MG PO ×2 (09:15→20:16)
[2023-07-16] MEDS: POTASSIUM CHLORIDE 20 MEQ ER TABLET PO (09:17)
[2023-07-16] MEDS: SIMVASTATIN 10 MG TABLET 40 MG PO (09:18)
[2023-07-16] MEDS: METOPROLOL SUCCINATE EXT REL 50 MG TABCR PO ×2 (09:20→20:16)
[2023-07-16] MEDS: SPIRONOLACTONE 25 MG TABLET PO (09:21)
[2023-07-16] MEDS: ASPIRIN 81 MG ENTERIC TABLET PO (09:21)
[2023-07-16] MEDS: DIGOXIN 250 MCG TABLET PO (09:22)
[2023-07-16] MEDS: FERROUS SULFATE 325 MG TABLET DR PO (09:23)
[2023-07-16] MEDS: FUROSEMIDE INJ 40 MG/4 ML VIAL IV PUSH (09:24)
--- NOTE | 2023-07-16 09:35 | PC.NURSE ---
Medina catheter placed per MD order. 600ml bright yellow urine out with initial placement. Patient tolerated well. Telemetry started and patient is in A-fib with irregular rhythm. HOB elevated to 30 degrees to assist with oxygenation.
[2023-07-16 09:46] LABS: HCO3 VBG 28.7 mEq/l (24.0-30.0); PO2 VBG 60.7 mmHg (35.0-45.0)
[2023-07-16 09:53] LABS: Device ROOM AIR
--- NOTE | 2023-07-16 10:39 | PC.NURSE ---
Patient off unit for CT scan.
--- NOTE | 2023-07-16 11:06 | PC.NURSE ---
Patient returned to unit from CT scan.
[2023-07-16 11:07] LABS: Hemoglobin A1C 4.9 % (<5.7)
[2023-07-16] MEDS: levoFLOXacin 250 MG/D5W 50 ML 250 MG/50 ML BAG 50 MG IVPB (12:10)
--- NOTE | 2023-07-16 13:46 | PC.NURSE ---
Patient had approximately 60ml emesis after lunch.
--- NOTE | 2023-07-16 13:47 | PC.NURSE ---
Dressing changed to LUE abrasion and RLE wound. No s/s infection. Patient tolerated well.
[2023-07-16] MEDS: CEFEPIME 2 GM/NS 50 ML 2 GM/50 ML BAG IVPB (14:14)
[2023-07-16] MEDS: RIVAROXABAN 10 MG TABLET 20 MG PO (16:44)
--- NOTE | 2023-07-16 17:36 | P.DS_ITS ---
DS: Admitting Diagnosis Discharge Date 07/15 Admitting Diagnosis shortness of breath DS: Discharge Diagnosis Discharge Diagnosis (1) Acute exacerbation of CHF (congestive heart failure): Qualifiers: Heart failure type: unspecified Qualified Code(s): I50.9 - Heart failure, unspecified Code(s): I50.9 - Heart failure, unspecified Status: Acute Assessment and Plan: c/o shortness of breath, weakness, and lower extremity swelling * BNP elevated at 6747 * Cardiomegaly seen on chest XR * On oxygen 3-4 L at baseline * On Lasix 40 mg daily and spironolactone. Change to IV lasix 40 mg BID * Replete lytes as needed * Tele ordered * Medina placed for strict I&O * Daily weights * Last ECHO 1 year ago showing EF 55% with mildly depressed right ventricular function. Given this is the second CHF exacerbation in a month will repeat ECHO while hospitalized. (2) Community acquired bacterial pneumonia: Code(s): J15.9 - Unspecified bacterial pneumonia Status: Acute Assessment and Plan: Patient with subjective shortness of breath, weakness, chills * Chest x-ray concerning for pneumonia versus pulmonary edema, difficult visualization secondary to interstitial lung disease * CT chest ordered for better image * Started on Levaquin and DuoNebs * Urine Legionella, IgM pneumococcal ordered pending * Blood cultures pending * Incentive spirometry ordered * Added guaifenesin b.i.d. (3) Chronic respiratory failure: Qualifiers: Respiratory failure complication: hypoxia Qualified Code(s): J96.11 - Chronic respiratory failure with hypoxia Code(s): J96.10 - Chronic respiratory failure, unspecified whether with hypoxia or hypercapnia Status: Acute Assessment and Plan: On 3-4 L oxygen baseline with history of interstitial lung disease * Venous blood gas ordered * CT of chest ordered for better visualization * DuoNebs q.6 ordered (4) Atrial fibrillation: Qualifiers: Atrial fibrillation type: unspecified Qualified Code(s): I48.91 - Unspecified atrial fibrillation Code(s): I48.91 - Unspecified atrial fibrillation Status: Acute Assessment and Plan: Hx of Afib on digoxin, metoprolol * EKG shows atrial fibrillation with ventricular rate of 57 * On Xarelto * Continue medications * Telemetry ordered (5) HTN (hypertension): Qualifiers: Hypertension type: primary hypertension Qualified Code(s): I10 - Essential (primary) hypertension Code(s): I10 - Essential (primary) hypertension Status: Acute Assessment and Plan: On metoprolol, oral Lasix, spironolactone 25 mg * Home meds resumed * Monitor blood pressures (6) Wound of right lower extremity: Code(s): S81.801A - Unspecified open wound, right lower leg, initial encounter Status: Acute Assessment and Plan: Patient follows at [facility] wound care for RLE wound * Wound care as follows, wash with soap and water, pat dry, apply silver foam, and cover with mepilex. * Dressing to be changed every 3 days. * Tubi sergeant of corrections to BLE vs ROSENDA hose Plan Feeding: Heart healthy diet Analgesia: Tylenol Thromboembolic prophylaxis: On Xarelto Ulcer prophylaxis: na Glycemic control: na Bowel regimen: colace prn Lines: PIV Antibiotics: Levaquin Disposition: Probable SNF placement, PT/OT consulted and rec's appreciated DS: Summary Hospital Course Reason for hospitalization: empyema Hospital Course: This is a pleasant 83
--- NOTE | 2023-07-16 17:36 | PM.DS ---
DS: Admitting Diagnosis Discharge Date 07/15 Admitting Diagnosis shortness of breath DS: Discharge Diagnosis Discharge Diagnosis (1) Acute exacerbation of CHF (congestive heart failure): Qualifiers: Heart failure type: unspecified Qualified Code(s): I50.9 - Heart failure, unspecified Code(s): I50.9 - Heart failure, unspecified Status: Acute Assessment and Plan: c/o shortness of breath, weakness, and lower extremity swelling BNP elevated at 6747 Cardiomegaly seen on chest XR On oxygen 3-4 L at baseline On Lasix 40 mg daily and spironolactone. Change to IV lasix 40 mg BID Replete lytes as needed Tele ordered Medina placed for strict I&O Daily weights Last ECHO 1 year ago showing EF 55% with mildly depressed right ventricular function. Given this is the second CHF exacerbation in a month will repeat ECHO while hospitalized. (2) Community acquired bacterial pneumonia: Code(s): J15.9 - Unspecified bacterial pneumonia Status: Acute Assessment and Plan: Patient with subjective shortness of breath, weakness, chills Chest x-ray concerning for pneumonia versus pulmonary edema, difficult visualization secondary to interstitial lung disease CT chest ordered for better image Started on Levaquin and DuoNebs Urine Legionella, IgM pneumococcal ordered pending Blood cultures pending Incentive spirometry ordered Added guaifenesin b.i.d. (3) Chronic respiratory failure: Qualifiers: Respiratory failure complication: hypoxia Qualified Code(s): J96.11 - Chronic respiratory failure with hypoxia Code(s): J96.10 - Chronic respiratory failure, unspecified whether with hypoxia or hypercapnia Status: Acute Assessment and Plan: On 3-4 L oxygen baseline with history of interstitial lung disease Venous blood gas ordered CT of chest ordered for better visualization DuoNebs q.6 ordered (4) Atrial fibrillation: Qualifiers: Atrial fibrillation type: unspecified Qualified Code(s): I48.91 - Unspecified atrial fibrillation Code(s): I48.91 - Unspecified atrial fibrillation Status: Acute Assessment and Plan: Hx of Afib on digoxin, metoprolol EKG shows atrial fibrillation with ventricular rate of 57 On Xarelto Continue medications Telemetry ordered (5) HTN (hypertension): Qualifiers: Hypertension type: primary hypertension Qualified Code(s): I10 - Essential (primary) hypertension Code(s): I10 - Essential (primary) hypertension Status: Acute Assessment and Plan: On metoprolol, oral Lasix, spironolactone 25 mg Home meds resumed Monitor blood pressures (6) Wound of right lower extremity: Code(s): S81.801A - Unspecified open wound, right lower leg, initial encounter Status: Acute Assessment and Plan: Patient follows at [facility] wound care for RLE wound Wound care as follows, wash with soap and water, pat dry, apply silver foam, and cover with mepilex. Dressing to be changed every 3 days. Tubi sheet cutter to BLE vs ROSENDA hose Plan Feeding: Heart healthy diet Analgesia: Tylenol Thromboembolic prophylaxis: On Xarelto Ulcer prophylaxis: na Glycemic control: na Bowel regimen: colace prn Lines: PIV Antibiotics: Levaquin Disposition: Probable SNF placement, PT/OT consulted and rec's appreciated DS: Summary Hospital Course Reason for hospitalization: empyema Hospital Course: This is a pleasant 83-year-old female with a past medical history significant for anxiety, atrial fibrillation on Xarelto, carotid artery stenosis, colon cancer with colostomy, chronic respiratory failure on 3-4 L at home, depression and anxiety, GERD, hypertension, hyperlipidemia, and rectal cancer who presents to the emergency room with complaints of shortness of breath and weakness.? The patient provides the following history, for the last month she has been feeling increasingly unwe
--- NOTE | 2023-07-16 18:31 | PC.NURSE ---
Spoke with aMia at [facility] and gave report. Maia voiced understanding. Patient will be transferred to [address]
[2023-07-16] MEDS: IPRATROPIUM 0.5 MG/ALBUTEROL SULFATE 2.5 MG AMPUL.NEB 3 ML INHALATION (18:32)
[2023-07-16] MEDS: VANCOMYCIN 2,000 MG/NS 500 ML 2,000 MG/500 ML BAG 250 MG IVPB (18:45)
--- NOTE | 2023-07-16 19:17 | PC.NURSE ---
Automotive Manufacturer did not collect MRSA swab per SYSTEMS TRAINER, because patient had MRSA swab yesterday that was negative.
[2023-07-16] MEDS: MIRTAZAPINE 15 MG TABLET 30 MG PO (20:16)
[2023-07-16 20:18] LABS: Procalcitonin 0.1 ng/mL
[2023-07-17 05:30] VITALS: O2SAT 100
[2023-07-21 01:53] LABS: Legionella pneumophila Ag Ur NOT DETECTED
[2023-07-27 20:59] LABS: Mycoplasma IgM Antibody Titer 93 U/mL
== END 2023-07-16 21:15 | disposition short-term general hospital (02) | DRG 291 ==
LOC: CHSED 13:04 → CHS2ND 13:13
PROVIDERS: Nurse Practitioner Acute Care; Nurse Practitioner Family; Admitting Provider Internal Medicine; Emergency Provider Emergency Medicine; PCP Family Medicine; Visit Provider Internal Medicine
DX: I11.0 Hypertensive heart disease with heart failure (principal); J18.9 Pneumonia, unspecified organism; I48.20 Chronic atrial fibrillation, unspecified; J44.0 Chronic obstructive pulmonary disease with (acute) lower respiratory infection; J96.11 Chronic respiratory failure with hypoxia; J90 Pleural effusion, not elsewhere classified; N39.0 Urinary tract infection, site not specified; I50.9 Heart failure, unspecified; I65.29 Occlusion and stenosis of unspecified carotid artery; K21.9 Gastro-esophageal reflux disease without esophagitis; I10 Essential (primary) hypertension; E78.5 Hyperlipidemia, unspecified; M19.90 Unspecified osteoarthritis, unspecified site; S81.801A Unspecified open wound, right lower leg, initial encounter; F32.A Depression, unspecified; F41.9 Anxiety disorder, unspecified; Z79.82 Long term (current) use of aspirin; Z85.038 Personal history of other malignant neoplasm of large intestine; Z99.81 Dependence on supplemental oxygen; Z85.048 Personal history of other malignant neoplasm of rectum, rectosigmoid junction, and anus; Z87.891 Personal history of nicotine dependence
CPT/HCPCS: 36415; 70450; 71045; 71250; 80048; 80053; 81001; 82803; 83036; 83605; 83880; 84145; 84484; 85025; 86738; 87040; 87449; 87637; 93005; 94640; 96361; 96365; 96376; 97110; 97161; 97166; 99285; A9270; G0378; J0692; J1940; J1956; J3370; J7030